=== PATIENT | male | born 1965 | race Caucasian/White ===

== ENCOUNTER 2024-04-27 13:19 | Inpatient (IN) | payer OTHER, SELFPAY ==
[2024-04-27] VITALS (30 sets, daily range): BP systolic 89–108; BP diastolic 49–82; BMI 15.5; BMI 15.3
--- NOTE | 2024-04-27 11:04 | ED.GENMED ---
History of Present Illness
General
Chief Complaint: Heart Rate Problem
Source: ambulance crew
Exam Limitations: clinical condition, altered mental status and dementia
Time Seen by Provider: 04/27/24 10:55
History of Present Illness
History of Present Illness:
See MDM
Past History
Past History
ED Past Medical History: HTN and Psychiatric
ED Past Surgical History: None
Social History
Tobacco: Non-smoker
Alcohol: None
Phy Exam
Physical Exam
Physical Exam:
See MDM
Sepsis
Sepsis Screening
Sepsis Assessment: Severe Sepsis
Sepsis Screening: Lactate >/=4mmol/L and Worsening O2 Saturation
Sepsis Screen
Sepsis Screen: Severe Sepsis
Date: 04/27/24
Time: 12:00
Course
Orders/Labs/Results
Orders:
Orders
04/27/24 10:55
Electrocardiogram (*1) Urgent
Reason for Study: Shortness of Breath
EKG- Treatment ONCE
0.9% Sodium Chloride 1000 ml [Nss] 1,000 ml IV BOLUS
CR Chest Portable - 1 View Urgent
Comment:
Reason For Exam: SOB, altered
Reason Study Needs to be Portable: Unable to Transport
04/27/24 11:03
Electrocardiogram (*1) Urgent
Reason for Study: Bradycardia / Tachycardia
EKG- Treatment ONCE
04/27/24 11:09
Acetaminophen [Tylenol/Feverall] 650 mg RECTAL NOW STA
04/27/24 11:21
Piperacillin/Tazo 3.375 Gram [Zosyn] 3.375 gram in 50 ml IV NOW
Vancomycin [Vancocin] 1,250 mg 0.9% Sodium Chloride 250 ml [Nss] 250 ml IV NOW
04/27/24 11:28
Comprehensive Metabolic Panel Urgent
NT-proBNP Urgent
PTT Urgent
Prothrombin Time Urgent
Troponin I Urgent
Urinalysis Reflex To Culture Urgent
Date Specimen was Collected: 04/27/24
Time Specimen was Collected: 11:25
Blood Culture Q30M
SERENE Source: Blood/Venous
Specimen Description:
04/27/24 11:29
COVID-19 Antigen Urgent
Source: Nasal Swab
Complete Blood Count/With Diff Urgent
Lactic Acid Q4H
Comment: CANCEL 2nd LACTIC ACID IF 1st LACTIC ACID IS LESS THAN 2
Influenza A+B Rapid Molecular Urgent
SERENE Source: Nasal Swab
Specimen Description:
04/27/24 11:30
Blood Culture Q30M
SERENE Source: Blood/Venous
Specimen Description:
04/27/24 11:46
Diltiazem 125 mg/125 ml Nss [Cardizem] 125 mg in 125 ml IV NOW
Initial dose in mg/hr, then titrate:: 5
Titrate to keep:: Heart rate 80-100 bpm
Titrate by mg/hr:: 5 mg/hr
Frequency of titrations (minutes):: 15
Maximum dose in mg/hr:: 15
Diltiazem HCl [Cardizem] 15 mg IV NOW STA
04/27/24 15:00
Lactic Acid Q4H
Comment: CANCEL 2nd LACTIC ACID IF 1st LACTIC ACID IS LESS THAN 2
Abnormal Lab Results
04/27/24 04/27/24
11:28 11:29
WBC 11.7 H 10^3/uL
(4.8-10.8)
Urine Ketones Trace A
(Negative)
Urine Bilirubin 1+ A
(Negative)
04/27/24 11:29
Vital Signs
Initial and Last Documented VS:
Initial Vital Signs
Pulse Resp BP Pulse Ox
200 40 100/61 95
04/27/24 10:56 04/27/24 10:56 04/27/24 10:56 04/27/24 10:56
Last Documented Vital Signs
Pulse Resp BP Pulse Ox
200 40 100/61 95
04/27/24 10:56 04/27/24 10:56 04/27/24 10:56 04/27/24 10:56
Procedures
Cardioversion
Indication:: Afib
Performed by:: Kenny Cosme,
Synchronized?: Yes
Energy Used: 150 joules
Number of attempts: 1
Successful?: Yes
ASA Risk Score: Class III
Any reaction or bad outcome to prior sedation/anesthesia?: History unavailable
Sedation level to be attained: minimal
Chart and allergies reviewed: Yes
Patient reassessed prior to sedation: Yes
Time out completed at (validating right patient & procedure): 11:00
History of difficult intubation: No
Airway free of obstruction: Yes
Patient has a gag reflex: Yes
Patient is able to open mouth: No
Patient has no dentures: Yes
Patient has no loose teeth: Yes
Medication administered by Provider during Moderate Sedation: Other (N/A)
Start Time: 11:00
Stop Time: 11:10
MDM/Problems Addressed
Differential Diagnosis Includes:
HPI and MDM Narrative:
59-year-old male presenting by EMS for altered mental status and tachycardia. Patient resides in a nursing facility for dementia. Patient currently nonverbal. EMS stating that his baseline is apparently combative and yelling. EMS stating that
the facility was unsure how long he was in this state. On arrival, patient significantly in the 200s. Patient is altered and confused and not responding to verbal stimuli. Due to the critical nature, patient set up for emergent cardioversion.
Patient shocked at 150 J and immediately was able to open his eyes. Patient now in a sinus tachycardia. Patient feels warm. Will workup for possible sepsis
Physical exam
General: Frail, cachectic, altered
HEENT: protecting airway
Neck: appears supple
CV: Tachycardic and irregular
Resp: No accessory muscle use. Rhonchorous breath sounds throughout
Abd: Non-distended
Extremities: No deformities
Neuro: Eyes closed, not responding to verbal stimuli
Psych: Flat affect
Skin: Warm
Problems Addressed including Acute and Chronic Conditions affecting care:
1. A-fib with RVR
Acuity: acute
Prognosis: unstable
Details: Patient requiring emergent cardioversion due to his critical nature. Patient tolerated procedure well. Patient will require admission and will relay to the hospital team that he will likely need at least 1 month of Eliquis status post
shock
2. Altered mental status
Acuity: acute
Prognosis: unstable
Details: Potentially hypoperfusion from A-fib or potentially sepsis. Will obtain chest x-ray, viral testing and urine
3. Hypoxia
Acuity: acute
Prognosis: unstable
Details: Likely in setting of pneumonia. Patient currently on nonrebreather
Updates
11:15 AM patient found to be febrile rectally. Patient given Tylenol. Will empirically treat with vancomycin and Zosyn with concern for pneumonia given his shortness of breath and fever and hypoxia
11:50 AM patient intermittently going back into rapid A-fib. Will start on Cardizem drip
12 PM family now at bedside and updated
Differential Diagnosis (but not limited to): A-fib, hypoxic brain injury, sepsis
Testing considered: CT head
Drug therapy (if applicable): OTC meds, please see d/c instruction regarding Rx drugs
Amount and/or Complexity of Data Reviewed
Clinical info obtained from: EMS
External data reviewed: N/A
Labs I independently reviewed (but not limited to): Elevated lactic acid
Radiology: X-ray independently reviewed: Chest x-ray concerning for left lower lobe pneumonia
Pulse Ox: hypoxic
EKG independently reviewed: A-fib with RVR, left axis, no STEMI, rate related ischemic changes
Acetylene Gas Compressor: A-fib with RVR
Critical Care: The high probability of a clinically significant, sudden or life threatening deterioration of the cardiopulmonary system(s) required my full and direct attention, intervention and personal management. The aggregate critical care time
was 35 minutes. This time is in addition to time spent performing reported procedures but includes the following:
[x] Data Review and interpretation
[x] Patient assessment and monitoring of vital signs
[x] Documentation
[x] Medication orders and management
Risk of Complication:
Social Determinants of health: Good social support
Discussed with other providers: Hospitalist
Escalation of Care includes Admit/Obs: Given sepsis and hypoxia and altered mental status, will admit
Occasional wrong word or 'sound a like' substitutions may have occurred due to the inherent limitations of voice recognition software. Read the chart carefully and recognize, using context, where substitutions have occurred.
*Critical Care Note
Total Time (30-74mins, 75-104mins- exclusive of procedures): 35 min
ED Attending Note
-
Portions of this chart may have been created with voice recognition software.� Occasional wrong word or��sound alike� substitutions may have occurred due to the inherent limitations of voice recognition software.
Discharge Plan
Departure
Patient Disposition: Admit
Date of Disposition: 04/27/24
Time of Disposition: 12:00
Admit to: IMU
Presentation/result/management discussed w/ accepting MD/DO: Hospitalist
Discharge Problem:
Sepsis, A-fib, PNA (pneumonia), Acute dehydration
Referrals:
Ezio Wright DO [Family Provider] -
Interventions
Interventions:
*Risk Screen - Suicide Last Done: 04/27/24 10:56
*General Assessment Last Done: 04/27/24 10:56
*Neglect/Abuse Screening Last Done: 04/27/24 10:56
Discharge Date and Time
Print Language: UZBEK
[2024-04-27 11:36] LABS: Hematocrit 45.1 % (39.0-52.0); Hemoglobin 15.1 g/dL (13.0-18.0); Mean Corp Hgb Conc. 33.5 g/dL (33.0-37.0); Mean Corpuscular Hgb 29.3 pg (27.0-31.0); Mean Corpuscular Volume 87.4 fL (80.0-94.0); Mean Platelet Volume 9.8 fL (7.4-10.4); Platelet Count 236 10^3/uL (130-400); Red Blood Cell Count 5.16 10^6/uL (4.70-6.10); Red Cell Dist. Width 12.9 % (11.5-14.5); White Blood Cell Count 11.7 10^3/uL (4.8-10.8)
[2024-04-27 11:39] LABS: Urine Albumin Trace (Neg - Trace); Urine Bilirubin 1+ (Negative); Urine Character Clear (Clear); Urine Color Yellow; Urine Glucose Negative (Negative); Urine Ketone Trace (Negative); Urine Leukocyte Negative (Negative); Urine Nitrite Negative (Negative); Urine Occult Blood Negative (Negative); Urine Specific Gravity 1.025 (<1.030); Urine Urobilinogen Negative (Neg - 1+)
[2024-04-27 11:46] LABS: INR 1.12; PT 14.8 Sec (11.4-14.6)
[2024-04-27 11:47] LABS: APTT 29.5 Sec (23.4-35.0)
[2024-04-27 11:52] LABS: ALT (SGPT) 58 U/L (0-50); AST (SGOT) 56 U/L (17-59); Albumin 3.5 g/dl (3.5-5.0); Alkaline Phosphatase 84 U/L (38-126); Blood Urea Nitrogen 113 mg/dl (9-20); Calcium 9.4 mg/dl (8.4-10.2); Carbon Dioxide 14 mmol/L (22-30); Chloride 118 mmol/L (98-107); Glucose 136 mg/dl (70-99); Potassium 5.4 mmol/L (3.5-5.1); Sodium 158 mmol/L (135-145); Total Bilirubin 0.8 mg/dl (0.2-1.3); Total Protein 6.2 g/dl (6.3-8.2); eGFR 21.34
[2024-04-27 11:52] LABS: Lactic Acid 6.4 mmol/L (0.7-2.0)
[2024-04-27 11:55] LABS: Absolute Neutrophils -Man Diff 8.7 10^3/uL (1.4-6.5); Band Neutrophils 21 % (0-3); Lymphocytes 15 % (20-51); Metamyelocytes 2 % (-); Monocytes 8 % (2-9); Platelets Checked Yes; Segmented Neutrophils 54 % (42-75)
[2024-04-27] MEDS: NSS 1000 IV ×2 (11:55→12:13)
[2024-04-27 11:56] LABS: COVID-19 Antigen Negative (Negative)
[2024-04-27] MEDS: TYLENOL/FEVERALL 650 MG RECTAL (11:56)
[2024-04-27] MEDS: ZOSYN 50 IV ×2 (11:56→17:44)
[2024-04-27 11:57] LABS: Normal RBC Morphology Yes; Total Cells Counted 100
[2024-04-27] MEDS: CARDIZEM 15 MG IV (11:57)
[2024-04-27 12:05] LABS: NT-proBNP 4330 pg/ml; Troponin I 0.926 ng/ml
[2024-04-27] MEDS: CARDIZEM 125 IV (12:14)
--- NOTE | 2024-04-27 12:35 | HPS.HSE ---
Addendum entered and electronically signed by Harvinder De La Rosa MD 04/27/24 13:54:
ABG:
04/27/24
13:20
pH 7.25 L
pCO2 31 L
pO2 92
ABG : Primary MA with secondary respiratory acidosis, additional MA
HCT:
- Moderate age-related parenchymal atrophy. No intra- or extra-axial mass, hemorrhage, or fluid collection.
- Mild to moderate subcortical, deep, and periventricular white matter low-attenuation, compatible with changes of chronic small vessel ischemic disease.
- The imaged paranasal sinuses and mastoid air cells are clear.
- No acute intracranial abnormality.
Addendum entered and electronically signed by Harvinder De La Rosa MD 04/27/24 13:18:
Addendum HX from [place] ( ) at Bed side but [place] is poor Historian
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
Hospitalized to [facility] from November to April 18 seems like
- acute behavioral dysfunction
- agitated Delirium to hyperactive TME
- PNA
- HX not suggestive of VDRF
- Before TF to [facility] , he was able to walk, able to feed himself etc
Original Note:
Family Physician
-
Family Physician: Ezio Wright, DO
Chief Complaint
-
AMS, Hypoxic
History of Present Illness
I could not get any information from the patient is obtunded
Information gathered by chart review and speaking with the ER staff and [place]
HPI from ER Attd:
59M [facility] Res reports combative at baseline, No prior visit to , HX IDDM, HLD, BPH was found unresponsive at [place]. Upon arrival , ER noted AF in RVR @ 200. Not on thinner.
S/p CV but SAF recur
Hypoxic RF on NRM
Soft BP
Obtunded
Addendum HX from [place] ( ) at Bed side but [place] is poor Historian
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
Hospitalized to [facility] from November to April 18 seems like
- acute behavioral dysfunction
- agitated Delirium to hyperactive TME
- PNA
- HX not suggestive of VDRF
- Before TF to [place] , he was able to walk, able to feed himself etc
Then DC' d from [facility] to [place] suspect SNF on 04/18/24
- HX as above
Medical History
Past Medical History
Past Medical History: Reports HTN, Hypercholesterolemia, IDDM and Seizures (?)
Past Surgical History: Reports Other (unknown )
Social History
Unable to obtain full social history at this time due to: Acuity (obdunted in severe TME )
Family History
Family History: Unable to Obtain
Allergies / Home Medications
Allergies reflects when Allergies were last updated in [employer].
Home Medications with original date entered in [employer]
Allergy/Medication List:
Vital Signs
Temp Pulse Resp BP Pulse Ox
101.5 F H 106 27 106/82 96
04/27/24 11:30 04/27/24 12:15 04/27/24 12:15 04/27/24 12:00 04/27/24 12:15
Review of Systems
-
Unable to obtain full review of systems at this time due to: Acuity
A 12 point ROS was completed and negative except as noted: No
Physical Exam
Vital Signs
Vital Signs
Temp Pulse Resp BP Pulse Ox
101.5 F H 106 27 106/82 96
04/27/24 11:30 04/27/24 12:15 04/27/24 12:15 04/27/24 12:00 04/27/24 12:15
Physical Exam
HEENT: NormoCephalic, Moist mucous membranes and Atraumatic
Respiratory: Clear
Cardiac: S1/S2 and Regular Rhythm; No Murmur or Rub
GI: Soft, Non Tender, Non Distended and Normal Bowel Sounds; No Organomegaly
Rectal: Deferred by Provider
Musculoskeletal: No Clubbing, No Cyanosis and No Edema
Skin: No Rash
Neuro: Nonfocal/grossly intact
Laboratory Results
-
04/27/24 11:29
04/27/24 11:28
Laboratory Results
PT 14.8 Sec (11.4-14.6) H 04/27/24 11:
INR 1.12 04/27/24 11:
APTT 29.5 Sec (23.4-35.0) 04/27/24 11:28
Lactic Acid 6.4 mmol/L (0.7-2.0) H* 04/27/24 11:
Total Bilirubin 0.8 mg/dl (0.2-1.3) 04/27/24 11:
AST 56 U/L (17-59) 04/27/24 11:
ALT 58 U/L (0-50) H 04/27/24 11:28
Alkaline Phosphatase 84 U/L (38-126) 04/27/24 11:28
Troponin I 0.926 ng/ml H* 04/27/24 11:28
Data Reviewed
-
CT Scan: Other (pending HCT )
Lab Data: Labs Reviewed by me
Impression/Plan
-
Reviewed VS: HR 200s, BP 100/60 --> 117/65 RR 40 POx 95 on NRM
Data
Laboratory Tests
04/27/24 04/27/24
11:28 11:29
WBC 11.7 H
Abs Neuts (Manual) 8.7 H
Band Neutrophils 21 H
Sodium 158 H
Potassium 5.4 H
Chloride 118 H
Carbon Dioxide 14 L*
BUN 113 H*
Creatinine 3.2 H
eGFR 21.34
Glucose 136 H
Lactic Acid 6.4 H*
Troponin I 0.926 H*
Uqh-D-Ftjxjwdotzb Pept 4330
NEG UA
NEG Covid
NEG Flu A & B
BCx pending
CXR
Left hemidiaphragm somewhat obscured suggesting opacification such as subsegmental atelectasis and/or pneumonia and possible small left pleural effusion
04/27/24 & 1103: EKG
SINUS TACHYCARDIA WITH PREMATURE ATRIAL COMPLEXES
LEFT AXIS DEVIATION
SEPTAL INFARCT (CITED ON OR BEFORE 27-APR-2024)
ABNORMAL ECG
WHEN COMPARED WITH ECG OF 27-APR-2024 11:00,
SINUS RHYTHM HAS REPLACED ATRIAL FIBRILLATION
VENT. RATE HAS DECREASED BY 76 BPM
SERIAL CHANGES OF EVOLVING SEPTAL INFARCT PRESENT
04/27/24 & 1055 EKG
ATRIAL FIBRILLATION WITH RAPID VENTRICULAR RESPONSE
LEFT AXIS DEVIATION
SEPTAL INFARCT , AGE UNDETERMINED
MARKED ST ABNORMALITY, POSSIBLE LATERAL SUBENDOCARDIAL INJURY
ABNORMAL ECG
NO PREVIOUS ECGS AVAILABLE
No prior hospitalist admission:
ASSESSMENT & PLAN
Odunted TME suspect multifactorial see as below
HX Sz ?
- Aspiration precaution thus NPO and IVF
- NPO till able to protect AW
- Supportive IVF
- check Valproate level
- HCT to complete w/u
Acute hypoxic RF
Suspect aspiration PNA @ LLL PNA
- NPO till able to protect AW
- ABG
- Agree with BS ABx: IV Vancomycin and Zosyn
- f/u BCx
- ICU consult
Severe sepsis due to PNA
Leucocytosis with significant bandemia
Severe LA
- IVF : switch to LR @120/H
- Trend LA, WCC and bands
- Treat PNA with above ABx
- ID consult
Severe Hypernatremia
Est FWD approx 3.5 L
- FWD correction so far with LR IVF due to incipient septic shock is priority of Tx
Associated severe hi AG MA due to sepsis, lactate acidoiss
Associated mild hyperkalemia
SANDY due to sepsis plus decrease PO
- LR IVF
- Trend Acid base , electrolytes
- Trend RFTs
- Trend Wt and UO
- Nephro consult
Significantly elevated TPNI : Presumed NSTEMI vs NIMI
S/P Fast AF s/p CV but recur
- Not on thinner
- Rate control with Dilt gtt
- IVF
Trend TPNI
- CBC card consult
Elevated pro BNP - related to fast AF vs chr distolic dysfunction
- ECHO and Card evaluation
IDDM
- hold Home insulin regime
- add ISS low
HX or Mood disorder
- check Depakene levei
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
HX BPH
- hold Flomax while NPO too protect AW
Cathexic NH res
HX suggestive of behavioral issues at baseline
- increase info about baseline ADL and IADL
Obtain records form [facility] admission from November to 2023
DVT Px: SQH
Full code
ICU
Total Critical Care Time__70__ minutes.
I was immediately available to the patient and staff. I personally examined, reviewed labs, diagnostic images/reports, interpretations, treatment plans, discussed patient care with other providers and family or caregivers (if patient is unable to
make decisions), entered orders as appropriate and documented the medical record.
[2024-04-27] MEDS: VANCOCIN 275 MG IV (13:21)
[2024-04-27 13:28] LABS: B.E. -12.4 mmol/L; O2 Saturation % 97.5 % (94-98); PCO2 31 mmHg (35-48); PO2 92 mmHg (83-108); pH 7.25 (7.35-7.45)
[2024-04-27 13:31] LABS: HCO3 13.6 mmol/L (21-28); O2 Therapy NRB
[2024-04-27] MEDS: LR 1000 IV (14:16)
--- NOTE | 2024-04-27 14:37 | W.CON.NEPH ---
Consultation
-
Date/Time Consultation Requested: 04/27/2024 2:00 PM
Date/Time Consultation Performed: 04/27/2024 2:00 PM
Requesting Provider: Dr. Cuadra
Performing Provider: Dr. Grant
Reason for Consultation: Acute kidney injury/ Metabolic Acidosis
Medical History
-
Chief Complaint: SANDY/Metabolic Acidosis
History of Present Illness:
59 year old male with history of frontal temporal dementia over the past 7 years. He was hospitalized in [facility] for dementia exacerbation for four months and then recently transferred to [facility] on 04/18 after admission at .
[facility] for PNA. The patient has a history of diabetes maintained on insulin therapy with microvascular complications including diabetic retinopathy and neuropathy. He is maintained on statin therapy in the setting of his dyslipidemia finasteride
setting of his BPH. He is maintained on valproic acid for possibly seizure or even for his frontal temporal dementia. He presented from the senior care at [facility] today after being found down beside his bed for an unknown period of time. On
presentation to the hospital he was hypotensive febrile and in rapid atrial fibrillation which required cardioversion. He is noted to have septic physiology and was also noted to have acute kidney injury with a creatinine of 3.2 with associated
lactic metabolic acidosis hypernatremia and hyperkalemia. We were then asked to see this critically ill patient for the aforementioned complications.
Past Medical History
DM
BPH
HL
Frontotemporal dementia
Social History
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
No tobacco alcohol abuse
Resides at senior care since end of March 2024
Family History
No kidney disease but notable for frontal temporal dementia with father and grandfather
Family History: Not Pertinent
Allergies / Home Medications
Allergy/AdvReac Type Severity Reaction Status Date / Time
No Known Allergies Allergy Unverified 04/27/24 10:56
�Medication �Instructions �Recorded �Confirmed �Type
acetaminophen 325 mg tablet 650 mg PO Q6HPRN PRN mild pain 04/27/24 04/27/24 History
(Tylenol)
amoxicillin 500 mg capsule 1,000 mg PO TID 04/27/24 04/27/24 History
aspirin 81 mg tablet,delayed 81 mg PO DAILY 04/27/24 04/27/24 History
release
atorvastatin 10 mg tablet (Lipitor) 10 mg PO HS 04/27/24 04/27/24 History
bisacodyl 10 mg rectal suppository 10 mg IL DAILYPRN PRN if no bm 04/27/24 04/27/24 History
(Dulcolax (bisacodyl)) aftr mom
cholecalciferol (vitamin D3) 25 25 mcg PO DAILY 04/27/24 04/27/24 History
mcg (1,000 unit) tablet (Vitamin
D3)
docusate sodium 100 mg capsule 100 mg PO BID 04/27/24 04/27/24 History
(Colace)
finasteride 5 mg tablet 5 mg PO DAILY 04/27/24 04/27/24 History
guaifenesin 600 mg tablet, 600 mg PO DAILY 04/27/24 04/27/24 History
extended release 12 hr
ibuprofen 200 mg tablet (Advil) 400 mg PO Q6HPRN PRN fever 04/27/24 04/27/24 History
insulin glargine 100 unit/mL (3 3 unit SC HS 04/27/24 04/27/24 History
mL) subcutaneous pen (Lantus
Solostar U-100 Insulin)
insulin lispro 100 unit/mL 0 sliding scale dose SC AC 04/27/24 04/27/24 History
subcutaneous pen
lorazepam 0.5 mg tablet 0.5 mg PO HS 04/27/24 04/27/24 History
loxapine succinate 25 mg capsule 25 mg PO DAILY 04/27/24 04/27/24 History
loxapine succinate 50 mg capsule 50 mg PO HS 04/27/24 04/27/24 History
magnesium hydroxide 400 mg/5 mL 2,400 mg PO E67MGVH PRN if no bm 04/27/24 04/27/24 History
oral suspension (Milk of Magnesia) on 3rd day
polyethylene glycol 3350 17 gram 17 g PO DAILY 04/27/24 04/27/24 History
oral powder packet (Miralax)
sodium phosphates 19 gram-7 118 ml IL DAILYPRN PRN if no bm 04/27/24 04/27/24 History
gram/118 mL enema (Fleet Enema) aftr dulcolax
tamsulosin 0.4 mg capsule (Flomax) 0.8 mg PO HS 04/27/24 04/27/24 History
valproic acid (as sodium salt) 250 500 mg PO BID 04/27/24 04/27/24 History
mg/5 mL oral solution
Review of Systems
-
Unable to obtain full review of systems at this time due to: Dementia, Acuity and Patient Non Verbal
History Source: Family
All other systems: Negative unless noted
Constitutional: Fatigue
Neurological: Other (Neuropathy, baseline combative dementia)
Physical Exam
Vital Signs
Vital Signs
Temp Pulse Resp BP Pulse Ox
100.2 F 102 25 90/53 98
04/27/24 14:20 04/27/24 14:15 04/27/24 14:15 04/27/24 14:00 04/27/24 14:15
Lab Results
04/27/24 11:29
04/27/24 11:28
WBC 11.7 10^3/uL (4.8-10.8) H 04/27/24 11:29
RBC 5.16 10^6/uL (4.70-6.10) 04/27/24 11:29
Hgb 15.1 g/dL (13.0-18.0) 04/27/24 11:29
Hct 45.1 % (39.0-52.0) 04/27/24 11:29
Plt Count 236 10^3/uL (130-400) 04/27/24 11:29
Sodium 158 mmol/L (135-145) H 04/27/24 11:
Potassium 5.4 mmol/L (3.5-5.1) H 04/27/24 11:
Chloride 118 mmol/L (98-107) H 04/27/24 11:
Carbon Dioxide 14 mmol/L (22-30) L* 04/27/24 11:
BUN 113 mg/dl (9-20) H* 04/27/24 11:
Creatinine 3.2 mg/dL (0.7-1.3) H 04/27/24 11:
eGFR 21.34 04/27/24 11:
Glucose 136 mg/dl (70-99) H 04/27/24 11:
Calcium 9.4 mg/dl (8.4-10.2) 04/27/24 11:
Iqy-A-Qgrvvultinb Pept 4330 pg/ml 04/27/24 11:
Albumin 3.5 g/dl (3.5-5.0) 04/27/24 11:
Physical Exam
General: Withdrawn lethargic obtunded, arousable to physical stimuli but non verbal, appears acutely ill
neck: noJVD Thyromegaly, no Bruits
Respiratory: Clear to auscultation bilaterally with normal lung excursion
Cardiac: S1/S2 irregular irregular
Breast: Deferred by me
Abdomen: Soft, Nontender, Nondistended, Normal Bowel Sounds and No Hepatosplenomegaly
Rectal: Deferred by Provider
Genito-urinary: No Costovertebral Tenderness
Extremities: No Clubbing, No Cyanosis and No Edema
Skin: No Rash or open lesions
Neuro: Obtunded
Hematologic/Lymphatic: No Cervical Lymphadenopathy, No Submandibular Lymphadenopathy and No Supraclavicular Lymphadenopathy
Psych: Obtunded
Vascular: plus 2 pedal and radial pulses
Data Reviewed
-
Radiology: Report Reviewed by me (Chest x-ray without congestive heart failure obvious infiltrate)
CT Scan: Report Reviewed by me (CT scan of head without acute findings)
Medical Tests (Nuc Med, Echo etc): Image Personally Visualized and interpreted (EKG personally reviewed notable for sinus tachycardia with PACs) and Report Reviewed by me
Labs: Labs Reviewed by me (BMP CBC urinalysis reviewed)
Critical Care Time (in minutes): 45 minutes
Assessment/Plan
-
Impression:
Sepsis: suspected LLL PNA
Atrial fibrillation status post cardioversion with hemodynamic instability (likely secondary to sepsis)
Change of mental status obtunded/found down in senior care
Acute kidney injury with creatinine of 3.2
Lactic metabolic acidosis
Hyperkalemia
Hypernatremia
Diabetes
BPH
Frontal temporal dementia
Positive troponin
Plan:
SANDY:
-Likely a function of hypotension in the setting of sepsis and atrial fibrillation
-Need to maintain MAP of 65 or greater with IV fluids and/or pressors if required
-Urinalysis notes only trace albumin and trace ketones, no evidence of leukocytes or blood (doubt rhabdo) or urosepsis
-Check random bladder scans while in ICU to assess for obstructive component given history of BPH
-Obtain fractional secretion of sodium (urine sodium and urine creatinine)
Hypernatremia:
-Calculated free water deficit ~3.5liters
-Will reduce free water deficit with hypotonic fluids once hemodynamic stability obtained
Gapped (26) and non gapped metabolic acidosis
-Likely due to lactic acidosis in the setting of sepsis and hypotension
-Would place patient on alkaline IV fluids sodium bicarbonate with 150 randy equivalents per liter at 150cc/hr
-Repeat electrolytes later this evening
-Hyperkalemia will improve with correction of metabolic acidosis
-ABG reveals some component of respiratory compensation PCO2 31 but still too high (therefore some component of respiratory acidosis)
AFIB:
-New onset status post cardioversion
-Currently on Cardizem for rate control
Sepsis:
-Broad-spectrum antibiotics with vancomycin and Zosyn
-Will need to be monitored by pharmacy for appropriate reduction of GFR which is currently less than 20 cc per minute
-Blood cultures pending
[2024-04-27 15:21] LABS: Lactic Acid 8.3 mmol/L (0.7-2.0)
[2024-04-27 15:29] LABS: Depakane < 10.0 ug/ml (50.0-120.0)
--- NOTE | 2024-04-27 15:40 | PHA.VAN.IN ---
Assessment
- Assessment
Renal Function: Unknown baseline
Concomitant Antimicrobials: piperacillin/tazobactam
Plan
- Plan
Initial / Loading Dose: 1250mg (~26 mg/kg) - 04/27 13:21
Maintenance Regimen: dosing by level
Monitoring: random 04/28 0600
MRSA Screen: Ordered per protocol
Pharmacokinetics Vancomycin I
- -
Patient Age: 59
Patient Sex: Male
Vancomycin Day #: 1
Indication: Pulmonary/Respiratory
Requesting Provider: Dr. De La Rosa
Pertinent Antimicrobial Allergies:
NKDA
Height / Weight:
Height 5 ft 9 in
Actual Weight 47.5 kg
IBW in k.7
Pertinent Past Medical History: BMI ~15.5, DM
- Vital Signs / Lab Results
Temp Pulse Resp BP Pulse Ox
100.2 F 102 25 90/53 98
04/27/24 14:20 04/27/24 14:15 04/27/24 14:15 04/27/24 14:00 04/27/24 14:15
Lab Results - Hematology
04/27/24
11:29
WBC 11.7 H
Band Neutrophils 21 H
Lab Results - Chemistry
04/27/24
11:28
BUN 113 H*
Creatinine 3.2 H
Albumin 3.5
04/27/24 04/27/24
11:29 14:48
Lactic Acid 6.4 H* 8.3 H*
Lab Results - Urine
04/27/24
11:28
Urine Nitrite (Reflex) Negative
Leukocyte Esterase Rfl Negative
Microbiology Results
04/27/24 11:29 Influenza Types A & B (CAREY) - Final
Nasal Swab Negative for Influenza A & B, NAAT
Negative results must be combined with clinical observations
and patient history.
Nucleic Acid Amplification test (NAAT)performed on the
[employer] platform.
[2024-04-27 15:59] LABS: Glucose - Point of Care 148 mg/dl (70-99)
--- NOTE | 2024-04-27 16:25 | CON.INTV ---
Consultation
Consultation Request
Date/Time Consultation Requested: 04/27/2024
Date/Time Consultation Performed: 04/27/2024
Requesting Provider: Dr. De La Rosa
Performing Provider: Dr. Zana Escobar
Reason for Consultation: Hypoxemic respiratory failure
Medical History
-
History of Present Illness:
59-year-old man with history of frontotemporal dementia diagnosed 7 years ago with aggressive behavior, detention resident, found unresponsive at the detention. He was found at the detention with atrial fibrillation with rapid ventricular
response-not previously mentioned to have history of this.
Not on blood thinners
Patient required supplemental oxygen up to nonrebreather mask.
Blood pressure was borderline and patient was obtunded.
Patient was transferred to the critical care unit for care. Hypoxemia suspected to be from aspiration pneumonia/pneumonitis.
Patient found to have leukocytosis with bandemia. Started on antibiotics. Fluid resuscitation was given as well.
He was found to be hypernatremic-likely volume depleted.
Found to have severe metabolic acidosis with increased troponins.
I spent a great deal of time at the bedside with the power of corporate associate attorney. Explaining current clinical situation. Poor prognosis. She states that patient has been deteriorating, 70 pound weight loss, significant muscle mass loss, decreased oral
intake, aggressive behavior. She would not want escalation of care or intubation, CPR or pressors.
-
Past Medical History
Past Medical History: Other (See assessment and plan)
Family History
Family History: Unable to Obtain
Allergies / Home Medications
Allergies
Allergy/AdvReac Type Severity Reaction Status Date / Time
No Known Allergies Allergy Unverified 04/27/24 10:56
Home Medications
�Medication �Instructions �Recorded �Confirmed �Last Taken �Type
acetaminophen 325 mg tablet 650 mg PO Q6HPRN PRN mild pain 04/27/24 04/27/24 Unknown History
(Tylenol)
amoxicillin 500 mg capsule 1,000 mg PO TID 04/27/24 04/27/24 Unknown History
aspirin 81 mg tablet,delayed 81 mg PO DAILY 04/27/24 04/27/24 Unknown History
release
atorvastatin 10 mg tablet (Lipitor) 10 mg PO HS 04/27/24 04/27/24 Unknown History
bisacodyl 10 mg rectal suppository 10 mg WY DAILYPRN PRN if no bm 04/27/24 04/27/24 Unknown History
(Dulcolax (bisacodyl)) aftr mom
cholecalciferol (vitamin D3) 25 25 mcg PO DAILY 04/27/24 04/27/24 Unknown History
mcg (1,000 unit) tablet (Vitamin
D3)
docusate sodium 100 mg capsule 100 mg PO BID 04/27/24 04/27/24 Unknown History
(Colace)
finasteride 5 mg tablet 5 mg PO DAILY 04/27/24 04/27/24 Unknown History
guaifenesin 600 mg tablet, 600 mg PO DAILY 04/27/24 04/27/24 Unknown History
extended release 12 hr
ibuprofen 200 mg tablet (Advil) 400 mg PO Q6HPRN PRN fever 04/27/24 04/27/24 Unknown History
insulin glargine 100 unit/mL (3 3 unit SC HS 04/27/24 04/27/24 Unknown History
mL) subcutaneous pen (Lantus
Solostar U-100 Insulin)
insulin lispro 100 unit/mL 0 sliding scale dose SC AC 04/27/24 04/27/24 Unknown History
subcutaneous pen
lorazepam 0.5 mg tablet 0.5 mg PO HS 04/27/24 04/27/24 Unknown History
loxapine succinate 25 mg capsule 25 mg PO DAILY 04/27/24 04/27/24 Unknown History
loxapine succinate 50 mg capsule 50 mg PO HS 04/27/24 04/27/24 Unknown History
magnesium hydroxide 400 mg/5 mL 2,400 mg PO [id number] PRN if no bm 04/27/24 04/27/24 Unknown History
oral suspension (Milk of Magnesia) on 3rd day
polyethylene glycol 3350 17 gram 17 g PO DAILY 04/27/24 04/27/24 Unknown History
oral powder packet (Miralax)
sodium phosphates 19 gram-7 118 ml WY DAILYPRN PRN if no bm 04/27/24 04/27/24 Unknown History
gram/118 mL enema (Fleet Enema) aftr dulcolax
tamsulosin 0.4 mg capsule (Flomax) 0.8 mg PO HS 04/27/24 04/27/24 Unknown History
valproic acid (as sodium salt) 250 500 mg PO BID 04/27/24 04/27/24 Unknown History
mg/5 mL oral solution
Review of Systems
-
Unable to Obtain full review of systems at this time due to: Acuity
Vitals / Labs / Diagnostic Testing
Vital Signs
Temp Pulse Resp BP Pulse Ox
100.2 F 102 25 90/53 98
04/27/24 14:20 04/27/24 14:15 04/27/24 14:15 04/27/24 14:00 04/27/24 14:15
Lab Data
04/27/24 11:29
04/27/24 11:28
Laboratory Results
04/27/24 04/27/24
11: 13:20
PT 14.8 H
INR 1.12
APTT 29.5
pH 7.25 L
pCO2 31 L
pO2 92
HCO3 13.6 L*
O2 Delivery Level Nrb
Microbiology
04/27/24 11:29 Nasal Swab Influenza Types A & B (CAREY) - Final
Negative for Influenza A & B, NAAT
Negative results must be combined with clinical observations
and patient history.
Nucleic Acid Amplification test (NAAT)performed on the
[employer] platform.
Diagnostic Testing:
Physical Exam
-
HEENT: Normocephalic
Cardiovascular: S1/S2
Respiratory: Non-Labored Respirations
GI: Soft and Non Distended
Neurology: Other (Obtunded. Shallow respiratory effort)
Skin: Warm
General: Comfortable and Other (Cachectic)
Assessment
-
Acute hypoxemic respiratory failure likely due to aspiration pneumonia/pneumonitis
Toxic metabolic encephalopathy-possible history of seizures-patient was found down at the detention
Severe Sepsis: Possibly pneumonia--Cannot rule out aspiration
Heart failure-unknown type.
proBNP elevated
Rapid atrial fibrillation
Troponin increased-likely non-TX
Anion gap metabolic acidosis
Acute kidney injury
Hyponatremia
Hyperkalemia
Hypernatremia-volume depletion
Conditions present prior admission:
Frontotemporal dementia with aggressive behavior
Insulin-dependent diabetes
History of mood disorder on Depakote
BPH
Malnutrition-cachectic
Prolonged admission at [facility] March 2024-unclear details
Assessment and plan:
Critically ill, toxic metabolic encephalopathy-cannot rule out seizure spell.-
CT head negative, reviewed
-
Hypoxemic/hypercapnic acute respiratory failure: Chest x-ray showed left lower lobe possible infiltrate. Cannot rule out aspiration event.
ABG 7.-patient's mental status continues to be poor. He is obtunded.
Not a candidate for noninvasive mechanical ventilation
DNR status
Continue oxygen supplementation
Prognosis is poor
Will not repeat ABG as there is no escalation of care and he is not a candidate for aggressive intervention at this point
-
Agree with antibiotics to cover for possible aspiration pneumonia
Currently Zosyn/vancomycin
Check MRSA screening if negative hopefully can discontinue vancomycin
-
Follow leukocytosis and fever curve
-
Severe sepsis-blood pressures were soft
Maintain hemodynamics with IV fluid, pressors will be started if necessary. Irving-Synephrine first if still tachycardic.
Anion gap metabolic acidosis/respiratory acidosis: Lactic acidosis with poor compensation.
Elevated lactic acid
Status post fluid resuscitation
Will transition to bicarbonate drip
Follow acid-base status closely
Not a candidate for noninvasive mechanical ventilation
If there is increased work of breathing intubation and mechanical ventilation will be needed.
-
Follow potassium and sodium postresuscitation.
-
Atrial fibrillation status post cardioversion.
Currently on Cardizem drip-wean off as able.
Follow hemodynamics closely
Heparin drip has been started
-
Trend troponins
Eventual echo cardiogram
-
N.p.o. for now
Head of the bed elevation if possible
-
I personally discussed with the power of corporate associate attorney at the bedside, 04/27/2024. Patient has been losing weight clinically deteriorating over the last few years. Lost about 70 pounds. Now nonambulatory. She would not want intubation, CPR or
escalation of care. Continue with antibiotics and IV fluids. Okay with labs. Prognosis is poor and she understands.
-
Critical care statement: A total of 80 minutes of critical care time was provided for this patient today. This includes management of unstable vital signs, evaluation of the patient at bedside, reviewing the patient's pertinent medical records
including ventilator settings, arterial blood gases, radiographs, microbiology, laboratory evaluations and discussion with primary team, critical care nursing, and respiratory therapy.
--- NOTE | 2024-04-27 16:39 | W.PN.CD ---
Today's Communication / Plan
-
Consult dictated
Trend trop
Consider systemic anticoagulation for 1 month, Dr. De La Rosa notified
Elective echo
Impression / Plan
-
AFib with RVR, reported 200, sinus tach after cardioversion
- S/p emergent cardioversion in ER
- Agree with ER, 30 days of Eliquis or some full dose anticoagulation is appropriate
- Afib likely from acute medical illness
Abnormal troponin, likely nonischemic myocardial injury related to sepsis
- First trop 0.9
Suspected sepsis
- CXR supports LLL pneumonia
Altered mental status
Dementia, fronto-temporal
SANDY
hyperkalemia
Lactic acidosis
Hypernatremia
Physical Exam
Vital Signs/Labs
Vital Signs
Temp Pulse Resp BP Pulse Ox
100.2 F 102 25 90/53 98
04/27/24 14:20 04/27/24 14:15 04/27/24 14:15 04/27/24 14:00 04/27/24 14:15
04/26/24 04/27/24 04/28/24
06:59 06:59 06:59
Actual Weight 47.5 kg
04/27/24 11:29
04/27/24 11:28
PT 14.8 Sec (11.4-14.6) H 04/27/24 11:28
INR 1.12 04/27/24 11:28
APTT 29.5 Sec (23.4-35.0) 04/27/24 11:28
04/27/24
11:28
Yeh-Z-Mrwvcoixvyh Pept 4330
LAB Results
04/27/24
11:28
Troponin I 0.926 H*
Data Reviewed
-
Date of Service: April 27, 2024
--- NOTE | 2024-04-27 16:50 | W.PN.UPDATE ---
Update Note
Progress Note Update
Case hospitalist d/w Dr Tompkins ( CBC card ) suggest systemic AC with Eliquis. Patient is aspiration precaution with NPO due to obtunded TME. Alternative suggestion is is unfractionated Heparin gtt. Thus hospitalist ordered Heparin gtt per d/w
Admitting Coordinator.
[2024-04-27 17:04] LABS: Troponin I 0.859 ng/ml
[2024-04-27] MEDS: HEPARIN 2900 UNITS IV (17:11)
[2024-04-27] MEDS: HEPARIN 25000 UNITS/250 ML IV (17:13)
[2024-04-27] MEDS: SODIUM BICARBONATE 1150 MEQ IV ×2 (17:45→22:18)
--- NOTE | 2024-04-27 19:00 | PTCARENOTE ---
Admitted from ED at 15:30. Transfer via stretcher, on continues cardiac monitoring, Handoff with ED nurse done. SR 90's SBP 90's via left upper arm, Rectal temp 98.5. bladder scanned 295. Condom catheter placed. pt unresponsive pupils b/l equal and
reactive . Arrived on NRM, placed on 6L via nasal canula current POX 93%. at the bedside per 's wishes pt code status changed to DNR braslet applied to Rt FA
--- NOTE | 2024-04-27 19:13 | CON.ID ---
Consultation
-
Date/Time Consultation Requested: 04/27/24 15:16
Date/Time Consultation Performed: 04/27/24 19:13
Requesting Provider: Dr De La Rosa
Performing Provider: Dr Will
Reason for Consultation: aspiration pneumonia and shock
Chief Complaint / Past History
Chief Complaint
found unresponsive
History of Present Illness
Mr Linares is a 59 year old male with frontotemporal dementia (dx 7 years ago, c/b aggressive behavior) he presented here today via EMS after being found nonresponisve at the prison in [facility] with RVR. he was placed on supplemental O2 and
aspiration pneumonitis suspected. History is limited by the lack of a resident care assistant.
Since arrival here febrile to 101.5, hypotensive responding to volume resuscitation - no pressors thus far, wbc 11.7, hgb 15, plt 236, L shift noted, na 158, K 5.4, co2 14, cr 3.2 unknown baseline, lactic acid initially 6.4 now 8.0, t bili 0.8, ast
56, alt 58, alk phos 84, troponin 0.9, bnp 4000, ua no pyuria, covid ag, CXR: atelectasis vs pneumonia, ct w/o contrast: no acute abnormality, blood cultures x2 in progress, mrsa screen pending, currently on vancomycin and zosyn, ID is consulted for
assistance with management.
Past History
Additional Past Medical History:
HTN, Hypercholesterolemia, IDDM and Seizures (?)
Additional Past Surgical History:
unknown
Allergy History:
No Known Allergies Allergy (Unverified 04/27/24 10:56)
Medications Reviewed: Yes
Social History
Tobacco: Other (unknown social history)
Family History
Family History: Not Pertinent
Review of Systems
Review of Systems
unable to obtain due to condition of the patient
Vital Signs
Temp Pulse Resp BP Pulse Ox
98.4 F 102 25 90/53 98
04/27/24 16:53 04/27/24 14:15 04/27/24 14:15 04/27/24 14:00 04/27/24 14:15
Physical Exam
Physical Exam
Constitutional: Toxic, Cachetic and Other (obtunded)
Cardiovascular: Regular Rate and S1/S2; Negative Murmur or Rub
Pulmonary: Symmetric and Coarse; Negative Wheezes, Rales or Rhonchi
Gastrointestinal: Soft, Non Tender, Non Distended and Normal Bowel Sounds
Genito-Urinary: Negative Suprapubic Tenderness
Skin: Warm and Dry; Negative Rash or Jaundice
Neurological: Negative Awake
Lab / Diagnostic Study Results
Total Counted 100 04/27/24 11:29
Abs Neuts (Manual) 8.7 10^3/uL (1.4-6.5) H 04/27/24 11:29
Segmented Neutrophils 54 % (42-75) 04/27/24 11:29
Band Neutrophils 21 % (0-3) H 04/27/24 11:29
Lymphocytes (Manual) 15 % (20-51) L 04/27/24 11:29
PT 14.8 Sec (11.4-14.6) H 04/27/24 11:28
INR 1.12 04/27/24 11:28
Lactic Acid 8.0 mmol/L (0.7-2.0) H* 04/27/24 16:20
Microbiology Results
Micro:
04/27/24 16:10 Nasal Screen MRSA (PCR) - Pending
Nose
04/27/24 16:10 Blood Culture - Pending
Blood/Venous
04/27/24 16:20 Blood Culture - Pending
Blood/Venous
04/27/24 11:29 Influenza Types A & B (CAREY) - Final
Nasal Swab Negative for Influenza A & B, NAAT
Negative results must be combined with clinical observations
and patient history.
Nucleic Acid Amplification test (NAAT)performed on the
[employer] platform.
04/27/24 11:28 Blood Culture - Pending
Blood/Venous
04/27/24 11:28 Blood Culture - Pending
Blood/Venous
Assessment / Plan
Septic Shock
Suspected Aspiration Pneumonia
Altered Mental Status
Frontotemporal Demenita
- blood cultures x2 in progress
- sputum if able to obtain one
- mrsa nasalscreen
- covid and influneza negative
- agree with vancomycin and zosyn at this time
- if mrsa screen negative can stop vancomycin
- prognosis guarded
[2024-04-27 19:36] LABS: Hematocrit 40.8 % (39.0-52.0); Hemoglobin 13.6 g/dL (13.0-18.0); Mean Corp Hgb Conc. 33.3 g/dL (33.0-37.0); Mean Corpuscular Hgb 29.4 pg (27.0-31.0); Mean Corpuscular Volume 88.3 fL (80.0-94.0); Mean Platelet Volume 9.6 fL (7.4-10.4); Platelet Count 208 10^3/uL (130-400); Red Blood Cell Count 4.62 10^6/uL (4.70-6.10); White Blood Cell Count 7.9 10^3/uL (4.8-10.8)
[2024-04-27 19:51] LABS: Lactic Acid 6.3 mmol/L (0.7-2.0)
--- NOTE | 2024-04-27 20:14 | PTCARENOTE ---
Received pt resting in bed, minimally responsive, lethargic. Opened his eyes briefly while RN was obtaining blood work but did not track. Mumbled a few garbled words then closed his eyes again. Followed commands to squeeze hands but no other
commands followed. Resistance to movement in B/L UEs. Pupils 3mm, brisk/equal. L eye with small amount white drainage/crusting and L eye reddened. ELECTRONICS TECHNOLOGY DEPARTMENT CHAIR notified. Artif. tears ordered. Will discuss w/ dayshift RN in AM. SR/SA with PACs on tele. HR
90-100. Cardizem gtt at 5mg/hr to maintain HR 80-100. BP 100s/70s. DP/PT pulses by doppler. LEs cool. Afebrile via rectal probe. Heparin gtt at 550units/hr, next PTT 2315. On 6L NC. Lungs diminished and coarse, poor effort. Tachypneic at times. No
cough. Hypoactive bowel sounds. NPO maintained. Mouth care provided. Condom cath in place but no UO yet. Will bladder scan per protocol. Sacral and B/L heel foams in place. Bicarb gtt infusing per AUG. Turning q2
[2024-04-27 21:49] LABS: Blood Urea Nitrogen 111 mg/dl (9-20); Calcium 8.3 mg/dl (8.4-10.2); Carbon Dioxide 13 mmol/L (22-30); Chloride 115 mmol/L (98-107); Estimated Creatinine Clearance 19 ml/min; Glucose 357 mg/dl (70-99); Magnesium 2.2 mg/dl (1.6-2.3); Phosphorus 7.9 mg/dl (2.5-4.5); Potassium 5.4 mmol/L (3.5-5.1); Sodium 155 mmol/L (135-145); eGFR 25.05
--- NOTE | 2024-04-27 21:58 | PTCARENOTE ---
Lab results reviewed with MARÍA Florez. Bicarb gtt switched to SW instead of D5W due to hyperglycemia. Accucheck obtained = 337. 12 units insulin ordered. Recheck BG in 2 hours orders.
[2024-04-27 22:05] LABS: Glucose - Point of Care 337 mg/dl (70-99)
[2024-04-27] MEDS: NOVOLOG FLEXPEN 12 UNITS SC (22:15)
[2024-04-27 23:40] LABS: APTT 33.2 Sec (23.4-35.0)
[2024-04-27 23:41] LABS: Lactic Acid 6.3 mmol/L (0.7-2.0)
[2024-04-27 23:54] LABS: Troponin I 0.472 ng/ml
[2024-04-28] VITALS (37 sets, daily range): BP systolic 86–118; BP diastolic 60–94; BMI 15.4
[2024-04-28] MEDS: ZOSYN 50 IV ×5 (00:31→23:47)
[2024-04-28] MEDS: NOVOLOG FLEXPEN-LOW RESISTANCE SC ×2 (00:35→05:39)
[2024-04-28] MEDS: NOVOLOG FLEXPEN 8 UNITS SC (00:36)
--- NOTE | 2024-04-28 00:37 | PTCARENOTE ---
Pt. reassessed. Repeat BG = 283. HEAVY REPAIRER notified.. 8 units insulin ordered and given. Cardizem gtt was titrated to off due to hypotension. HR maintaining high 90s, NSR with PACs and PVCs. BP now 107/71 (83). PTT was low at 33.2. Heparin increased to
750units per protocol. O2 weaned to 3L NC. Neuro assessment unchanged, moving UEs purposefully at times and opened eyes but still no tracking or commands followed. Voiding via condom cath 500ml yellow/phoebe urine.
[2024-04-28 00:42] LABS: Glucose - Point of Care 283 mg/dl (70-99)
[2024-04-28] MEDS: REFRESH EYE DROPS (PF) 1 DROPS OPHTH (01:16)
[2024-04-28 03:46] LABS: % Basophils 0.8 % (0-2); % Immature Granulocytes 0.5 % (0-0.5); % Lymphocytes 13.8 % (20.5-51.1); % Monocytes 6.4 % (1.7-9.3); % Neutrophils 78.5 % (42.2-75.2); Absolute Basophils 0.1 10^3/uL (0-0.2); Absolute Lymphocytes 0.9 10^3/uL (1.2-3.4); Absolute Monocytes 0.4 10^3/uL (0.1-0.6); Absolute Neutrophils 5.2 10^3/uL (1.4-6.5); Hematocrit 39.4 % (39.0-52.0); Hemoglobin 13.4 g/dL (13.0-18.0); Mean Corpuscular Hgb 29.2 pg (27.0-31.0); Mean Corpuscular Volume 85.8 fL (80.0-94.0); Mean Platelet Volume 9.5 fL (7.4-10.4); Nucleated Red Blood Cells % 0 % (-); Platelet Count 222 10^3/uL (130-400); Red Blood Cell Count 4.59 10^6/uL (4.70-6.10); Red Cell Dist. Width 12.7 % (11.5-14.5); White Blood Cell Count 6.6 10^3/uL (4.8-10.8)
[2024-04-28 03:48] LABS: Lactic Acid 4.5 mmol/L (0.7-2.0)
--- NOTE | 2024-04-28 03:49 | PTCARENOTE ---
Pt. more alert this morning, mumbling words but not able to have appropriate conversation or answer questions. Some simple commands followed. Remains off cardizem gtt, HR 80s, BP 110/68. Weaned to RA, spo2 95%. AM labs drawn.
[2024-04-28 04:09] LABS: Vancomycin Random 5.9 ug/ml
[2024-04-28 04:19] LABS: ALT (SGPT) 42 U/L (0-50); AST (SGOT) 28 U/L (17-59); Albumin 2.8 g/dl (3.5-5.0); Alkaline Phosphatase 64 U/L (38-126); Blood Urea Nitrogen 109 mg/dl (9-20); Calcium 8.1 mg/dl (8.4-10.2); Carbon Dioxide 27 mmol/L (22-30); Chloride 114 mmol/L (98-107); Estimated Creatinine Clearance 22 ml/min; Glucose 143 mg/dl (70-99); Potassium 3.9 mmol/L (3.5-5.1); Sodium 159 mmol/L (135-145); Total Bilirubin 0.6 mg/dl (0.2-1.3); Total Protein 5.3 g/dl (6.3-8.2); eGFR 30.13
[2024-04-28] MEDS: 0.45%NACL 1000 IV (04:45)
[2024-04-28] MEDS: DEXTROSE 50% SYRINGE 12.5 GRAMS IV (05:38)
[2024-04-28 05:48] LABS: Glucose - Point of Care 64 mg/dl (70-99)
--- NOTE | 2024-04-28 06:02 | PTCARENOTE ---
Labs reviewed w/ DOUGH RAISER. IVF switched to 0.45%NS @ 60ml/hr.
Hypoglycemic on 0600 BG. D50 given per protocol. Repeat = 90. Difficult to assess if pt. symptomatic but no obvious changes in mentation. Bathed with CHG.
[2024-04-28 06:07] LABS: Glucose - Point of Care 90 mg/dl (70-99)
[2024-04-28 06:32] LABS: INR 1.28; PT 16.2 Sec (11.4-14.6)
[2024-04-28] MEDS: PROTONIX IV 40 MG IV (07:24)
[2024-04-28] MEDS: NSS (PRESERVATIVE FREE) 10 ML IV (07:25)
--- NOTE | 2024-04-28 07:51 | W.PN.NEPH.PH ---
Today's Communication / Plan
-
Continue to periodically perform random bladder
Follow BMP and electrolytes at 1 PM
Will transition IV fluids to quarter normal saline at 100 cc/h in setting of profound hypernatremia
Acute kidney injury continues to improve and metabolic acidosis resolved
Assessment/Plan
-
Impression:
Sepsis: suspected LLL PNA
Atrial fibrillation status post cardioversion with hemodynamic instability (likely secondary to sepsis)
Change of mental status obtunded/found down in skilled nursing
Acute kidney injury with creatinine of 3.2
Lactic metabolic acidosis
Hyperkalemia
Hypernatremia
Diabetes
BPH
Frontal temporal dementia
Positive troponin
Plan:
SANDY:
-Creatinine improved to 2.4 and nonoliguric ~900cc
-Likely a function of hypotension in the setting of sepsis and atrial fibrillation
-Need to maintain MAP of 65 or greater with IV fluids and/or pressors if required
-Urinalysis notes only trace albumin and trace ketones, no evidence of leukocytes or blood (doubt rhabdo) or urosepsis
-Checked random bladder scans while in ICU to assess for obstructive component given history of BPH
Hypernatremia:
-Calculated free water deficit ~3.5liters
-Will transition fluids to hypotonic IVFs (1/4NS) at 100cc/hr
-Recheck lytes later this afternoon
Gapped (26) and non gapped metabolic acidosis
-Likely due to lactic acidosis in the setting of sepsis and hypotension
-Now resolved
-ABG revealed some component of respiratory compensation PCO2 31 but still too high (therefore some component of respiratory acidosis)
AFIB:
-New onset status post cardioversion
-now off cardizem due to low bp
Sepsis:
-Broad-spectrum antibiotics with vancomycin and Zosyn
-Will need to be monitored by pharmacy for appropriate reduction of GFR which is currently less than 20 cc per minute
-Blood cultures pending
-
-
Date of Service: April 28, 2024
CC / HPI / ROS
-
Chief Complaint:
Acute kidney injury
History of Present Illness:
Creatinine down from 3.2 to 2.4
Metabolic acidosis improved following sodium bicarbonate
Remains in normal sinus rhythm off Cardizem drip
Hemodynamically labile
Review of Systems:
Low-grade fevers
Patient mental status a little bit more interactive today, nonverbal
Nonoliguric via condom catheter
Labs
-
Labs:
WBC 6.6 10^3/uL (4.8-10.8) 04/28/24 03:28
RBC 4.59 10^6/uL (4.70-6.10) L 04/28/24 03:28
Hgb 13.4 g/dL (13.0-18.0) 04/28/24 03:28
Hct 39.4 % (39.0-52.0) 04/28/24 03:28
Plt Count 222 10^3/uL (130-400) 04/28/24 03:28
Sodium 159 mmol/L (135-145) H 04/28/24 03:28
Potassium 3.9 mmol/L (3.5-5.1) D 04/28/24 03:28
Chloride 114 mmol/L (98-107) H 04/28/24 03:28
Carbon Dioxide 27 mmol/L (22-30) 04/28/24 03:28
BUN 109 mg/dl (9-20) H* 04/28/24 03:28
Creatinine 2.4 mg/dL (0.7-1.3) H 04/28/24 03:28
eGFR 30.13 04/28/24 03:28
Glucose 143 mg/dl (70-99) H 04/28/24 03:28
Calcium 8.1 mg/dl (8.4-10.2) L 04/28/24 03:28
Phosphorus 7.9 mg/dl (2.5-4.5) H 04/27/24 21:13
Rwa-K-Ohikigxpciz Pept 4330 pg/ml 04/27/24 11:28
Albumin 2.8 g/dl (3.5-5.0) L 04/28/24 03:28
Physical Exam
-
Vital Signs:
Vital Signs
Temp Pulse Resp BP Pulse Ox
99.4 F 86 27 117/66 96
04/28/24 07:20 04/28/24 06:30 04/28/24 06:30 04/28/24 06:30 04/28/24 06:30
Cardiovascular:: Regular rate and rhythm
Respiratory:: Bilateral: Coarse
Lung Excursion:: Normal
Abdomen:: Nontender and Soft
Bowel Sounds:: Decreased
Extremity Edema:: None: Bilateral:
Gilbert Catheter: No
[2024-04-28 08:03] LABS: Lactic Acid 3.1 mmol/L (0.7-2.0)
[2024-04-28 08:13] LABS: Glucose - Point of Care 100 mg/dl (70-99)
[2024-04-28 08:20] LABS: Troponin I 0.415 ng/ml
--- NOTE | 2024-04-28 08:21 | PTCARENOTE ---
0700 patient received in bed.
Cardizem off. Heparin at 9.5unit or; 0.45 NSS will be changed to Sterile Water/Sodium Bicarb; Patient on RA
Patient Open eyes to pain stimuli only, Unable to tack, or follow commands. Pupils +2 round equal, reactive to light. Strong gag reflex
SR 89 on telemetry; S1 and S2 auscultation. + Murmur. No edema. Pedal pulses check via Doppler
BP via left upper arm: 112/70 MAP; Rectal Tem 99.3; SR 89; RR 23
Lungs RA diminished RR even No SOB no cough ; Unable to obtain sputum
Abdomen soft non-tender BS present
Incontinent of urine; Condom catheter #25 draining yellow urine
Skin: multiple pressure ulcers see skin assessment
--- NOTE | 2024-04-28 08:30 | PHA.VAN.FU ---
Vancomycin Assessment / Plan
- Assessment
Renal Function: SCR Decreasing
WBC's are: Trending Down
In the past 24 hrs, patient has been: Febrile (Tmax = 101.5)
Concomitant Antimicrobials: Piperacillin-tazobactam
- Assessment - Therapeutic Drug Monitoring
Random Level: R = 5.9 ~14hrs post Vanc 1250mg--26mg/kg
- Dosing Plan
Continue: Dose by level
Dosing by Level: Re-dose today (Vanc 750mg--15.9mg/kg)
- Monitoring Plan
Random Level: 11 AM
- Follow Up
Pharmacy will continue to follow.
Vancomycin Follow UP
- -
Patient Age: 59
Patient Sex: Male
Vancomycin Day #: 2
Indication: Pulmonary/Respiratory
Requesting Provider: Dr. De La Rosa
Pertinent Antimicrobial Allergies:
NKDA
Height / Weight:
Height 5 ft 9 in
Actual Weight 47.2 kg
IBW in k.7
Pertinent Past Medical History: BMI ~15.5, DM
- Vital Signs / Lab Results
Temp Pulse Resp BP Pulse Ox
99.4 F 86 27 117/66 96
04/28/24 07:20 04/28/24 06:30 04/28/24 06:30 04/28/24 06:30 04/28/24 06:30
Lab Results - Hematology
04/27/24 04/27/24 04/28/24
11:29 19:29 03:28
WBC 11.7 H 7.9 6.6
Band Neutrophils 21 H
Lab Results - Chemistry
04/27/24 04/27/24 04/28/24
11:28 21:13 03:28
BUN 113 H* 111 H* 109 H*
Creatinine 3.2 H 2.8 H 2.4 H
Estimated Creat Clear 19 22
Albumin 3.5 2.8 L
04/27/24 04/27/24 04/27/24
14:48 16:20
Lactic Acid 6.4 H* 8.3 H* 8.0 H*
04/27/24 04/27/24 04/28/24
19:29 23:20 03:20
Lactic Acid 6.3 H* 6.3 H* Cancelled
04/28/24 04/28/24
03:28 07:45
Lactic Acid 4.5 H* 3.1 H
Lab Results - Urine
04/27/24
11:28
Urine Nitrite (Reflex) Negative
Leukocyte Esterase Rfl Negative
Microbiology Results
04/27/24 11:29 Influenza Types A & B (CAREY) - Final
Nasal Swab Negative for Influenza A & B, NAAT
Negative results must be combined with clinical observations
and patient history.
Nucleic Acid Amplification test (NAAT)performed on the
[employer] platform.
Therapeutic Drug Monitoring
Random Vancomycin 5.9 ug/ml 04/28/24 03:28
--- NOTE | 2024-04-28 08:58 | W.PN.HOSP.TC ---
Addendum entered and electronically signed by Pat Tafoya MD 04/28/24 14:46:
I saw and evaluated the patient independently. I reviewed the resident�s note and agree with findings and plan as documented by Dr. Sanches.
GENERAL: chronically ill, cachectic male in no apparent distress
HEENT: NC/AT--NO O2 requirements
HEART: regular rate and rhythm, +S1, +S2
LUNGS : clear to auscultation bilaterally
ABDOM: soft, nontender, nondistended, + bowel sounds
EXT: no cyanosis, clubbing, or edema
NEUROLOGIC: unable to assess
: condom cath
Toxic metabolic encephalopathy-- likely multifactorial (hypernatremia, sepsis, CVA, seizure)--head CT negative--treat what we can to reverse what we can--no need for neuro or EEG--family also doesn't want pressors--agree with aspiration
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
sepsis with Acute hypoxemic resp insufficiency with mixed acid base disorder--likely aspiration--cont vanco/zosyn--NPO/IVF--ABG reviewed--pt with gapped and nongapped metabolic acidosis, lactic acidosis, respiratory acidosis, with likely contraction
metabolic alkalosis--WBC with left shift and bandemia--presume aspiration--trend lactates, improved from admission
Severe Hypernatremia with SANDY/hyperkalemia--due to poor PO intake, sepsis--cont hypotonic IVF--apprec renal--condom cath--zaldivar if needed--free water deficit ~4L
new onset rapid afib (never had before) with Presumed nonischemic myocardial injury troponin elevation--off cardizem drip and converted back to NSR--apprec cards--would elect NOT to give anticoagulation given decline as per family--echo pending
Type 2 DM insulin requiring--- hold Home insulin regimen- add ISS low
HX of Mood disorder with aggressive behaviors --valproic acid level low--change to IV meds if possible-- Hold INFORMATION SECURITY SPECIALIST Valproate, Lorazepam, Loxapine--as pt metabolically recovers, watch for need for restraints, etc
HX BPH-hold Flomax while NPO
Obtain records form [facility] admission from November to 2023 --never been here before
DVT proph
code status--DNR/DNI/no pressors
Total Critical Care Time 40 minutes. I was immediately available to the patient and staff. I personally examined, reviewed labs, diagnostic images/reports, interpretations, treatment plans, discussed patient care with other providers and family
or caregivers (if patient is unable to make decisions), entered orders as appropriate and documented the medical record.
Original Note:
Today's Communication/Plan
-
ID, cardiology, nephrology following; appreciate recs
Assessment / Plan
Assessment / Plan
59yo M with H frontotemporal dementia (with aggressive behavioral dysfunction), HTN, DM on insulin, h/o mood disorder, who presented to ED 04/27/24 for altered mental status and tachycardia. At baseline, patient is apparently combative and
yelling, resides at nursing facility for dementia. Prior to arriving at hospital, patient was nonverbal.
Toxic metabolic encephalitis
Obtunded on hospital admission
- Likely multifactorial in nature- sepsis, pneumonia, hypernatremia, afib may be contributing- see below for individual plans
- Head CT 04/27 negative for acute intracranial stroke, hemorrhage, mass
- NPO, aspiration requirements
Sepsis present on admission secondary to pneumonia
LLL pneumonia, suspected secondary to aspiration
Acute hypoxic respiratory insufficiency, respiratory acidosis
High anion gap metabolic acidosis, secondary to lactic acidosis
- Chest xray 04/27 showed possible L pneumonia, atelectasis, or pleural effusion
- Febrile on admission 101.5 rectally (04/27 @ 11:30)
- Lactic acid peaked at 8.3, trended down to 3.1 this AM
- Blood cultures 04/27 pending
- Required nonrebreather in ED, now on room air
- ID consulted, appreciate recs. Continue antibiotics per ID.
- Furniture Crater consulted, appreciate recs.
Severe hypernatremia
Acute kidney injury
- Estimated FWD approximately 3.5 on admission
- Cr. 3.2 on admission, unknown baseline --> 2.4 this AM. eCrCl 22.
- Nephrology consulted, appreciate recs.
- Continue IVF per nephrology
Chronic afib, not on anticoagulation prior to admission
- S/p cardioversion in ED 04/27/24
- S/p diltiazem gtt --> discontinued due to hypotension- family does not want pressors
Elevated troponin, likely nonischemic myocardial injury secondary to sepsis
- Troponin 0.926 on admission --> downtrended to 0.415
- Downtrended appropriately, no further intervention at this time
Elevated pro BNP, likely secondary to afib with RVR vs chronic diastolic dysfunction
- ProBNP 4330 on admission
Diabetes mellitus
- Insulin sliding scale
H/o mood disorder
Possible seizure disorder
- Home meds held due to NPO: valproate 500mg BID, lorazepam 0.5mg qHS, loxapine 25mg qD and 50mg qHS
- Initiate IV valproic acid 250mg q6h
- Lorazepam IV qHS
H/o BPH
- Continue home flomax
H/o frontotemporal dementia and behavioral issues at baseline
Code status: DNR, DNI
Per prior documentation 04/27: POA does not want escalation of care. Understanding of poor prognosis. Continue IV antibiotics and labs.
VTE ppx: heparin
Diet: NPO
Dispo planning: TBD
Anticipated Discharge: > 48 hours
Subjective/Interval History
-
Date of Service: April 28, 2024
Overnight, his fluids were adjusted for elevated and low blood sugars, and his cardizem was stopped due to hypotension. This morning, he is awake in bed and seems to acknowledge my presence though does not respond to any questions.
Objective Data
-
Labs:
Laboratory Results
04/27/24 04/27/24 04/28/24
21:13 23:20 03:28
WBC 6.6
Hgb 13.4
Hct 39.4
Plt Count 222
PT
INR
APTT 33.2
Sodium 155 H 159 H
Potassium 5.4 H 3.9 D
Chloride 115 H 114 H
Carbon Dioxide 13 L* 27
BUN 111 H* 109 H*
Creatinine 2.8 H 2.4 H
Glucose 357 H 143 H
Calcium 8.3 L 8.1 L
Total Bilirubin 0.6
AST 28
ALT 42
Alkaline Phosphatase 64
04/28/24 04/28/24
06:02 13:00
WBC
Hgb
Hct
Plt Count
PT 16.2 H
INR 1.28
APTT 43.0 H Pending
Sodium Pending
Potassium Pending
Chloride Pending
Carbon Dioxide Pending
BUN Pending
Creatinine Pending
Glucose Pending
Calcium Pending
Total Bilirubin
AST
ALT
Alkaline Phosphatase
04/27/24 11:29 Influenza Types A & B (CAREY) - Final
Nasal Swab Negative for Influenza A & B, NAAT
Negative results must be combined with clinical observations
and patient history.
Nucleic Acid Amplification test (NAAT)performed on the
[employer] platform.
Vital Signs:
Vital Signs
Temp Pulse Resp BP Pulse Ox
99.4 F 86 27 117/66 96
04/28/24 07:20 04/28/24 06:30 04/28/24 06:30 04/28/24 06:30 04/28/24 06:30
I&O
04/27/24 04/28/24 04/29/24
06:59 06:59 06:59
Intake Total 1778.0 / 1847.5 139.0 / 139.0
Output Total 900 / 900
Balance 878.0 / 947.5 139.0 / 139.0
Review of Systems
-
Unable to obtain full review of systems at this time due to: Dementia and Patient Non-verbal
Physical Exam
-
General: No Apparent Distress, Comfortable, Appears Chronically Ill and Cachectic
HEENT: Normocephalic, Atraumatic and Anicteric; Negative Oxygen
Respiratory: Clear to Auscultation (anterior lung brown) and Non Labored Respirations
Cardiac: Regular Rhythm and S1/S2
GI: Soft, Nontender, Nondistended and Normal Bowel Sounds
Musculoskeletal: No Edema
Skin: Warm and Dry
Neuro: Awake; Negative Alert or Oriented
Psych: Calm; Negative Intact Judgement/Insight
Data Reviewed
-
Diagnostic Radiology: Image personally visualized and interpreted and Report Reviewed by me
CT Scan: Image personally visualized and interpreted and Report Reviewed by me
Labs: Labs Reviewed by me
--- NOTE | 2024-04-28 09:05 | W.PN.ID1 ---
Date of Service
Date of Service: April 28, 2024
Today's Communication
- agree with vancomycin and zosyn at this time
- if mrsa screen negative can stop vancomycin
Assessment / Plan
Septic Shock
Suspected Aspiration Pneumonia
Altered Mental Status
Frontotemporal Dementia
SANDY
Hypernatremia, Uremia
- blood cultures x2 in progress
- sputum if able to obtain one
- mrsa nasal screen
- agree with vancomycin and zosyn at this time
- if mrsa screen negative can stop vancomycin
- prognosis guarded
Chief Complaint
-: Fever, Pneumonia and Other (AMS)
Subjective / Review of Systems
no further fevers
BP stable
Vital Signs / Physical Exam
Vital Signs
Vital Signs
Temp Pulse Resp BP Pulse Ox
99.4 F 86 27 117/66 96
04/28/24 07:20 04/28/24 06:30 04/28/24 06:30 04/28/24 06:30 04/28/24 06:30
Physical Exam
Constitutional: No Acute Distress
Cardiovascular: Regular Rate and S1/S2; Negative Murmur or Rub
Pulmonary: Clear and Symmetric; Negative Wheezes or Rales
Gastrointestinal: Soft, Non Tender, Non Distended and Normal Bowel Sounds
Skin: Warm and Dry; Negative Rash or Jaundice
Wound: Other (stage 1 pressure wound on the L heel- offloaded)
Neurological: Negative Awake or Alert
Objective Data
Lab Data
Lab Results
04/28/24 03:28
PT 16.2 Sec (11.4-14.6) H 04/28/24 06:02
INR 1.28 04/28/24 06:02
APTT 43.0 Sec (23.4-35.0) H 04/28/24 06:02
Estimated Creat Clear 22 ml/min 04/28/24 03:28
Lactic Acid 3.1 mmol/L (0.7-2.0) H 04/28/24 07:45
Total Bilirubin 0.6 mg/dl (0.2-1.3) 04/28/24 03:28
AST 28 U/L (17-59) 04/28/24 03:28
ALT 42 U/L (0-50) 04/28/24 03:28
Alkaline Phosphatase 64 U/L (38-126) 04/28/24 03:28
Most recent labs reviewed.
Micro Results:
04/27/24 16:10 Blood Culture - Pending
Blood/Venous
04/27/24 16:10 Nasal Screen MRSA (PCR) - Pending
Nose
04/27/24 16:20 Blood Culture - Pending
Blood/Venous
04/27/24 11:29 Influenza Types A & B (CAREY) - Final
Nasal Swab Negative for Influenza A & B, NAAT
Negative results must be combined with clinical observations
and patient history.
Nucleic Acid Amplification test (NAAT)performed on the
[employer] platform.
04/27/24 11:28 Blood Culture - Pending
Blood/Venous
04/27/24 11:28 Blood Culture - Pending
Blood/Venous
Care Review
Plan reviewed with: Physician (Dr Tafoya - wounds)
[2024-04-28 09:25] LABS: Glycohemoglobin (HgbA1c) 7.9 % (4.0-5.6)
--- NOTE | 2024-04-28 09:31 | W.PN.CD ---
Today's Communication / Plan
-
Trop peaked at 0.926, the first troponin
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
Elective echo
Impression / Plan
-
AFib with RVR, 200 bpm, sinus tach after cardioversion
- S/p emergent cardioversion in ER
- Agree with ER, 30 days of Eliquis or some full dose anticoagulation is appropriate
- Afib likely from acute medical illness
- [id number] seems to be 1 for hx HTN
- If anticoagulation well tolerated consider continuing anticoagulation job boss can be considered depending on status of progressive dementia
Abnormal troponin => nonischemic myocardial injury related to sepsis
- Peak troponin was first trop 0.9
- Elective echo
- I see no role for stress testing. 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
Suspected sepsis
- CXR supports LLL pneumonia
- Cultures negative as of 04/28/2024 AM
Altered mental status
Dementia, fronto-temporal
- Significant/advanced
SANDY
hyperkalemia
Lactic acidosis
Hypernatremia
DM
Mixed hyperlipidemia
Subjective/Interval Hx:
Improving overall, no more AFib seen
Physical Exam
Vital Signs/Labs
Vital Signs
Temp Pulse Resp BP Pulse Ox
99.4 F 85 24 113/69 94
04/28/24 07:20 04/28/24 09:00 04/28/24 09:00 04/28/24 09:00 04/28/24 09:00
04/27/24 04/28/24 04/29/24
06:59 06:59 06:59
Actual Weight 47.2 kg
04/28/24 03:28
PT 16.2 Sec (11.4-14.6) H 04/28/24 06:02
INR 1.28 04/28/24 06:02
APTT 43.0 Sec (23.4-35.0) H 04/28/24 06:02
Magnesium 2.2 mg/dl (1.6-2.3) 04/27/24 21:13
04/27/24
:28
Ist-D-Gypejwcodsg Pept 4330
LAB Results
04/27/24 04/27/24 04/27/24
16:20 21:00
Troponin I 0.926 H* 0.859 H* Cancelled
04/27/24 04/28/24
23:20 07:45
Troponin I 0.472 H* D 0.415 H*
Physical Exam
Cardiovascular: Rhythm & rate is regular and Pedal edema is absent
Respiratory: Respiratory effort normal and Lungs clear to auscul.
GI: Soft and Distention absent
Neuro/Psych: Other (looks more alert but did not answer my questions and did not follow my requests to move)
Data Reviewed
-
Date of Service: April 28, 2024
[2024-04-28] MEDS: SODIUM CHLORIDE 1094.625 MEQ IV ×6 (09:57→19:22)
[2024-04-28] MEDS: VANCOCIN 150 IV (10:08)
[2024-04-28 10:28] LABS: Glucose - Point of Care 108 mg/dl (70-99)
--- NOTE | 2024-04-28 11:00 | PTOTSP ---
ST Screening
Chart reviewed. Pt admitted from nursing facility after being found down. Of note, pt with recent hospitalization from November-April 18, 2024 for behavioral dysfunction and PNA. Upon arrival to this ED, pt was obtunded, tachycardic to 200s, and
required emergent cardioversion. Pt dx with afib with RVR, acute metabolic encephalopathy, severe sepsis, severe lactic acidosis, acute hypoxic respiratory failure, severe hypernatremia, and SANDY. Pt's medical hx significant for IDDM, HLD, HTN, BPH,
and frontotemporal dementia dx about 7 years ago with associated aggressive behavior (baseline: combative and yelling). Pt has reportedly had significant weight loss (70lbs) and reduced PO intake as of recently. Pt's baseline diet unknown. Pt
febrile upon admission to 101.5 and requiring 3L of supplemental O2 via nasal cannula. CXR indicative of possible PNA. Lab work significant for WBC 11.7, troponin 0.45, lactic acidosis 3.1, Na 159, BUN 109, and creatinine 2.4. Pt currently NPO
because he is obtunded. Pt made DNR/DNI - pt has a poor prognosis.
Given the above information, would recommend placing an order for a comprehensive ENGRAVER PANTOGRAPH evaluation WHEN the pt is awake, alert, and can appropriately/meaningfully participate.
[2024-04-28] MEDS: NOVOLOG FLEXPEN-LOW RESISTANCE 1 UNITS SC ×2 (12:17→17:11)
[2024-04-28 12:26] LABS: Glucose - Point of Care 163 mg/dl (70-99)
--- NOTE | 2024-04-28 12:34 | W.PN.INTV ---
Today's Communication / Plan
Recommendations
Continue antibiotic
IV fluid
Follow electrolytes
Follow cultures
Aspiration precautions
Wean down FiO2
Would focus on comfort
Transfer to intermediate care unit.
Pulmonary will continue to follow briefly
Assessment
-
59-year-old man with frontotemporal dementia. Found down at the [place] [facility]. It was brought into the hospital for further evaluation. Found to be in rapid atrial fibrillation requiring emergent cardioversion in the emergency room. Found to have
profound metabolic acidosis, hypernatremia with dehydration hypoxemia and possible aspiration
Acute hypoxemic respiratory failure likely due to aspiration pneumonia/pneumonitis
Toxic metabolic encephalopathy-possible history of seizures-patient was found down at the [place] [facility]
Severe Sepsis: Possibly pneumonia--Cannot rule out aspiration
Heart failure-unknown type.
proBNP elevated
Rapid atrial fibrillation
Troponin increased-likely non-ND
Anion gap metabolic acidosis
Acute kidney injury
Hyponatremia
Hyperkalemia
Hypernatremia-volume depletion
Conditions present prior admission:
Frontotemporal dementia with aggressive behavior
Insulin-dependent diabetes
History of mood disorder on Depakote
BPH
Malnutrition-cachectic
Prolonged admission at [facility] [place] March 2024-unclear details
Assessment and plan:
Critically ill, toxic metabolic encephalopathy-cannot rule out seizure spell.-
CT head negative
Overnight no vasopressor requirements.
Slightly improving mental status. He remains Somnolent. Now trying to move extremities.
Minimal coughing.
-
Hypoxemic/hypercapnic acute respiratory failure: Chest x-ray showed left lower lobe possible infiltrate. Cannot rule out aspiration event versus atelectasis.
ABG 7.-patient's mental status continues to be poor. He is obtunded.
Not a candidate for noninvasive mechanical ventilation
DNR status
Continue oxygen supplementation-maintain pulse ox above 90%.
Prognosis is poor
Will not repeat ABG as there is no escalation of care and he is not a candidate for aggressive intervention at this point
-
Agree with antibiotics to cover for possible aspiration pneumonia
Currently Zosyn/vancomycin
Check MRSA screening if negative hopefully can discontinue vancomycin-pending
Infectious disease following
-
Leukocytosis improved
No longer febrile.
-
Severe sepsis-blood pressure improved after IV fluids
No vasopressor requirement.
Anion gap metabolic acidosis/respiratory acidosis: Lactic acidosis with poor compensation.
Resolved acidosis 04/28/2024.
Lactic acid improving.
Status post fluid resuscitation-now transition to hypotonic solution due to hyponatremia.
Bicarbonate drip discontinued
-
Not a candidate for noninvasive mechanical ventilation-poor mental status.
would not want escalation of care, mechanical ventilation or CPR. DNR status. She would not want pressors either.
-
Hyperkalemia resolved
Hypernatremia noted-nephrology following.
On IV fluids
Follow renal function, trending lower.
-
Atrial fibrillation status post cardioversion. Heart rate improved
Cardizem drip discontinued
Cardiology correspondence reviewed, anticoagulation continue for now
-
Increase in [id number]. Trending lower.
Eventual echo cardiogram
-
N.p.o. for now
Head of the bed elevation if possible
-
Dr. Escobar personally discussed with the power of personal injury attorney at the bedside, 04/27/2024. Patient has been losing weight clinically deteriorating over the last few years. Lost about 70 pounds. Now nonambulatory. She would not want intubation, CPR
or escalation of care. Continue with antibiotics and IV fluids. Okay with labs. Prognosis is poor and she understands.
-
Patient now is DNR status, not requiring vasopressors. He will not be intubated. Not a candidate for noninvasive mechanical ventilation.
No longer requiring continuous Cardizem drip.
Will transfer to intermediate care unit.
Pulmonary will continue to follow briefly for hypoxemia possible aspiration pneumonia
Subjective Dataa
Subjective Data
Date of Service:
Date of Service: April 28, 2024
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
Review of Systems
General: Other (Unable to obtain due to underlying dementia and acute illness)
Objective Data
Data Reviewed
Vital Signs / I&O / Oxygen:
Vital Signs
Temp Pulse Resp BP Pulse Ox
99.2 F 85 20 101/72 94
04/28/24 11:59 04/28/24 10:15 04/28/24 10:15 04/28/24 10:00 04/28/24 10:00
Intake and Output
04/27/24 04/28/24 04/29/24
06:59 06:59 06:59
Intake Total 1778.0 / 1847.5 427.5 / 427.5
Output Total 900 / 900 450 / 450
Balance 878.0 / 947.5 -22.5 / -22.5
SaO2 94
Nasal Cannula flow liters per 3
minute
Physical Exam
General: Comfortable and Other (Cachectic)
HEENT: Normocephalic
Cardiovascular: S1-S2
Respiratory: Clear and Non-Labored Respirations
GI: Soft and Non Distended
Neurology: Other (Lethargic, trying to move extremities. Occasional mild coughing. Not following commands.)
Skin: Warm
Labs/Micro/Reports
Lab Data
04/28/24 03:28
Laboratory Results
04/27/24 04/27/24 04/27/24
13:20 16:47 23:20
PT
INR
APTT Cancelled 33.2
pH 7.25 L
pCO2 31 L
pO2 92
HCO3 13.6 L*
O2 Delivery Level Nrb
04/28/24
06:02
PT 16.2 H
INR 1.28
APTT 43.0 H
pH
pCO2
pO2
HCO3
O2 Delivery Level
Microbiology
04/27/24 11:28 Blood/Venous Blood Culture - Preliminary
No Growth in 24 hours- Final report to follow
04/27/24 11:28 Blood/Venous Blood Culture - Preliminary
No Growth in 24 hours- Final report to follow
04/27/24 11:29 Nasal Swab Influenza Types A & B (CAREY) - Final
Negative for Influenza A & B, NAAT
Negative results must be combined with clinical observations
and patient history.
Nucleic Acid Amplification test (NAAT)performed on the
[employer] platform.
[2024-04-28 13:00] LABS: APTT 66.2 Sec (23.4-35.0)
[2024-04-28 13:01] LABS: Lactic Acid 1.9 mmol/L (0.7-2.0)
[2024-04-28 13:10] LABS: Blood Urea Nitrogen 96 mg/dl (9-20); Calcium 8.1 mg/dl (8.4-10.2); Carbon Dioxide 27 mmol/L (22-30); Chloride 112 mmol/L (98-107); Estimated Creatinine Clearance 26 ml/min; Glucose 174 mg/dl (70-99); Potassium 3.9 mmol/L (3.5-5.1); Sodium 154 mmol/L (135-145)
--- NOTE | 2024-04-28 15:35 | PTOTSP ---
ST Consult
Chart reviewed. Pt admitted from [facility] after being found down with altered mental status, obtunded/nonverbal, and tachycardic. Pt received emergent cardioversion in ED. Pt was recently admitted to an outside hospital from November through March for
behavioral dysfunction 2/2 underlying frontotemporal dementia and PNA. Pt admitted here for afib with RVR, acute metabolic encephalopathy, acute hypoxic respiratory failure 2/2 suspected aspiration PNA, severe sepsis, sever lactic acidosis, SANDY, and
severe hypernatremia. Pt has also had a reported 70lb weight loss recently. Unknown baseline diet. Pt's medical hx significant for frontotemporal dementia (dx 7 years ago; baseline - combative/yelling), HTN, HLD, IDDM, BPH.
Spoke with RN. Pt's mentation is slightly improved in comparison to yesterday but pt remains too lethargic to meaningfully and safely participate in LICENSED PROSTHETIST/ORTHOTIST evaluation at this time. Will defer evaluation until tomorrow. Recommend strict NPO status with
aspiration precautions (HOB raised; oral care QID) until formal LICENSED PROSTHETIST/ORTHOTIST evaluation can be completed.
--- NOTE | 2024-04-28 15:53 | CM ---
CM following re: d/c planning.
Pt presents to from [facility].
CM spoke with GREGORY Sullivan.
Informed that pt is total care, able to converse, curses often.
She states he is able to eat and drink.
Pt likes to be left alone.
CM continuing to follow for d/c planning.
Goal: return to [facility] at d/c.
--- NOTE | 2024-04-28 16:20 | PTCARENOTE ---
patient in bed. telemetry 81 SR; BP via left upper arm 113/77 MAP 87; RR 27; 96/2L . occasional moist non-productive couch. Condom catheter draining clear yellow urine Bladder scanned for 245. pt lethargic. On 2L of oxygen 96% . RA 89%
[2024-04-28 17:24] LABS: Glucose - Point of Care 162 mg/dl (70-99)
[2024-04-28] MEDS: DEPACON 52.5 MG IV (18:00)
--- NOTE | 2024-04-28 19:19 | PTCARENOTE ---
Assumed care of pt. approx 1900.
Remains on heparin gtt, and bicarb.
Still lethargic, does not follow commands, maintaining own airway.
Normal sinus w/o ectopy noted, normotensive, normothermic.
[2024-04-28 21:19] LABS: APTT 89.3 Sec (23.4-35.0)
[2024-04-28] MEDS: ATIVAN 0.25 MG IV (23:07)
[2024-04-28] MEDS: NSS (PRESERVATIVE FREE) 0.125 ML IV (23:08)
[2024-04-28] MEDS: SODIUM CHLORIDE 1009.625 MEQ IV (23:08)
[2024-04-28] MEDS: NOVOLOG FLEXPEN-LOW RESISTANCE 2 UNITS SC (23:50)
[2024-04-29] VITALS (23 sets, daily range): BP systolic 90–151; BP diastolic 66–109; BMI 15.6
[2024-04-29 00:01] LABS: Glucose - Point of Care 211 mg/dl (70-99)
[2024-04-29] MEDS: DEPACON 52.5 MG IV ×5 (00:16→23:01)
--- NOTE | 2024-04-29 01:54 | PTCARENOTE ---
Heparin gtt renewed by house SECURITY SYSTEM ANALYST, per call, cont. gtt at current rate of protocol 1050 U/hr. therapeutic x1, next ptt 0300.
[2024-04-29 03:32] LABS: Hematocrit 36.8 % (39.0-52.0); Hemoglobin 12.6 g/dL (13.0-18.0); Mean Corp Hgb Conc. 34.2 g/dL (33.0-37.0); Mean Corpuscular Hgb 29.2 pg (27.0-31.0); Mean Corpuscular Volume 85.4 fL (80.0-94.0); Mean Platelet Volume 9.5 fL (7.4-10.4); Platelet Count 172 10^3/uL (130-400); Red Blood Cell Count 4.31 10^6/uL (4.70-6.10); Red Cell Dist. Width 12.5 % (11.5-14.5); White Blood Cell Count 4.8 10^3/uL (4.8-10.8)
[2024-04-29 03:37] LABS: APTT 78.8 Sec (23.4-35.0)
[2024-04-29 04:00] LABS: Blood Urea Nitrogen 83 mg/dl (9-20); Calcium 8.5 mg/dl (8.4-10.2); Carbon Dioxide 32 mmol/L (22-30); Chloride 110 mmol/L (98-107); Estimated Creatinine Clearance 33 ml/min; Glucose 176 mg/dl (70-99); Potassium 4.2 mmol/L (3.5-5.1); Sodium 151 mmol/L (135-145); eGFR 49.02
--- NOTE | 2024-04-29 04:16 | PTCARENOTE ---
Heparin gtt now in therapeutic range.
[2024-04-29] MEDS: ZOSYN 50 IV ×4 (06:06→23:01)
[2024-04-29] MEDS: NOVOLOG FLEXPEN-LOW RESISTANCE 1 UNITS SC ×3 (06:10→23:01)
[2024-04-29 06:21] LABS: Glucose - Point of Care 183 mg/dl (70-99)
--- NOTE | 2024-04-29 06:26 | PTCARENOTE ---
pt. desatting sp02 86 on 6L, Resp. notified will place on midflo.
--- NOTE | 2024-04-29 08:14 | W.PN.UPDATE ---
Update Note
Progress Note Update
I saw and evaluated the patient independently. I reviewed the resident�s note and agree with findings and plan as documented by Dr. Sanches.
Gen: NAD, NCAT
CV: RRR, +S1/S2, no m/r/g.
Resp: CTAB, no rales, wheezes, or rhonchi.
Abd: +BS, soft, NT, ND
Skin: No rashes.
Neuro: unresponsive to voice and shoulder shake
Psych: Normal mood and affect.
04/27/24 16:10 Blood/Venous Blood Culture - Preliminary
No Growth in 24 hours- Final report to follow
04/27/24 16:20 Blood/Venous Blood Culture - Preliminary
No Growth in 24 hours- Final report to follow
04/27/24 16:10 Nose Nasal Screen MRSA (PCR) - Final
MRSA not detected - performed by PCR methodology.
04/27/24 11:28 Blood/Venous Blood Culture - Preliminary
No Growth in 24 hours- Final report to follow
04/27/24 11:28 Blood/Venous Blood Culture - Preliminary
No Growth in 24 hours- Final report to follow
04/27/24 11:29 Nasal Swab Influenza Types A & B (CAREY) - Final
Negative for Influenza A & B, NAAT
Negative results must be combined with clinical observations
and patient history.
Nucleic Acid Amplification test (NAAT)performed on the
[employer] platform.
CT brain: No acute intracranial abnormality.
CXR: Left hemidiaphragm somewhat obscured suggesting opacification such as subsegmental atelectasis and/or pneumonia and possible small left pleural effusion.
Sepsis, POA:
-With acute hypoxemic respiratory insufficiency, SANDY, and mixed acid-base disorder (AG met acidosis, respiratory acidoses, and contraction alkalosis)
-Likely due to aspiration pneumonitis
-currently on empiric Vanco/Zosyn. Stop Vanco with NEG MRSA screen, NEG cultures.
-BCxs NGTD
-Flu/COVID NEG
-cont IVFs (currently with bicarb), lactic acidosis now resolved, SANDY improving
-leukocytosis, POA, resolved
Acute metabolic encephalopathy:
-likely multifactorial (hypernatremia, sepsis, CVA, seizure)
-h/o frontotemporal dementia x 7 years, family wants minimal intervention
Electrolyte abnormalities:
-Hypernatremia, improving on hypotonic IVF
-Hyperkalemia, resolved
New onset afib with RVR:
-elevated trop is acute nonischemic myocardial injury due to afib with RVR
-cardiology following
-was on cardizem gtt, now converted back to NSR
-family does not want AC emt intermediate, currently on heparin gtt
-echo pending
Other problems:
DM2: SSI/accuchecks
Severe protein calorie malnutrition
h/o Mood disorder with aggressive behaviors --valproic acid level low--change to IV meds if possible-- Hold RADIOLOGIST Valproate, Lorazepam, Loxapine--as pt metabolically recovers, watch for need for restraints, etc
BPH: holding flomax
DNR/DNI
heparin gtt
Attempted to reach family over the phone, no answer. Reasonable to discuss goals of care.
[2024-04-29] MEDS: NSS (PRESERVATIVE FREE) 10 ML IV (08:18)
[2024-04-29] MEDS: PROTONIX IV 40 MG IV (08:19)
--- NOTE | 2024-04-29 08:22 | W.PN.PUL3 ---
Today's Communication / Plan
-
Aspiration precautions
HOB >30-45�
Abx as per ID
Repeat CXR tomorrow
prn DuoNebs
Guarded prognosis - seems appropriate for comfort care/hospice
Continue heparin gtt given A-fib (although now in NSR) - eventual NOAC
Continue hypotonic IVF; trend sNa
Pulmonary service will continue to briefly follow along
Assessment
-
59-year-old man with frontotemporal dementia. Found down at the custodial. It was brought into the hospital for further evaluation. Found to be in rapid atrial fibrillation requiring emergent cardioversion in the emergency room. Found to have
profound metabolic acidosis, hypernatremia with dehydration hypoxemia and possible aspiration
Impression:
Acute hypoxemic respiratory failure likely due to aspiration pneumonia/pneumonitis
Toxic metabolic encephalopathy-possible history of seizures-patient was found down at the custodial
Severe Sepsis: Possibly pneumonia--Cannot rule out aspiration
Acute HFpEF (proBNP elevated)
Rapid atrial fibrillation now in NSR
Lactic acidosis � now resolved
Troponin increased-due to demand ischemia with type II [place] (troponin peaked at 0.926 on 04/27/2024)
Anion gap metabolic acidosis - resolved
Acute kidney injury - improving
Hyperkalemia - resolved
Hypernatremia-volume depletion
Conditions present prior admission:
Frontotemporal dementia with aggressive behavior
Insulin-dependent diabetes
History of mood disorder on Depakote
BPH
Malnutrition-cachectic
Prolonged admission at [facility] March 2024-unclear details
Assessment and plan:
Patient remains minimally responsive although hemodynamically stable, with improving hypoxia on mid flow nasal cannula
CT head negative
Minimal coughing
-
Hypoxic acute respiratory failure: Chest x-ray showed left lower lobe possible infiltrate. Cannot rule out aspiration event versus atelectasis (no prior CXR to compare to)
ABG 7.-patient's mental status continues to be poor. He is obtunded - no evidence for hypercapnia to be cause of patient's AMS
Not a candidate for noninvasive mechanical ventilation given iatrogenic aspiration risk
DNR/DNI status
Continue oxygen supplementation to keep SpO2 >90-94%
Prognosis is poor
Will not repeat ABG as there is no escalation of care and he is not a candidate for aggressive intervention at this point
-
Agree with antibiotics to cover for possible aspiration pneumonia
Currently Zosyn s/p IV vancomycin x 2 doses on 04/27 + 04/28
MRSA screen negative
Infectious disease following
Repeat CXR tomorrow AM
-
Leukocytosis now resolved
No longer febrile since admission on 04/27
-
Severe sepsis-blood pressure improved after IV fluids and is now stable
No vasopressor requirement.
Anion gap metabolic acidosis/respiratory acidosis: Lactic acidosis with poor compensation.
Resolved acidosis as of 04/28/2024.
Lactic acid now normalized as of 04/28/2024
Status post fluid resuscitation-now transition to hypotonic solution due to hyponatremia --> nephrology on board and recs appreciated
C/t trend sNa
Bicarbonate drip discontinued on 04/28/2024 --> c/t trend sHCO3
-
Not a candidate for noninvasive mechanical ventilation-poor mental status with high aspiration risk
would not want escalation of care, mechanical ventilation or CPR. DNR status. She would not want pressors either.
-
Hyperkalemia resolved
Hypernatremia noted-nephrology following -> on hypotonic IVF
Follow renal function, trending lower.
-
Atrial fibrillation status post cardioversion. Heart rate improved
Cardizem drip discontinued
Cardiology correspondence reviewed, anticoagulation continue for now
-
Troponin has peaked at 0.926 on admission; no longer need to continue trending
Echo performed 04/29/2024 showing normal biventricular size and function with LVEF 55-60% with small perimembranous VSD with left�to�right shunting and mildly elevated PASP (39 mmHg)
-
NPO while remains minimally response
Head of the bed elevation to avoid risk of aspiration
-
Dr. Escobar personally discussed with the power of temporary administrative assistant at the bedside, 04/27/2024. Patient has been losing weight & clinically deteriorating over the last few years - has lost about ~70 pounds. Now non-ambulatory. She would not want
intubation, CPR or escalation of care. Continue with antibiotics and IV fluids. Okay with labs. Prognosis is poor and she understands.
-
Patient is DNR/DNI status, not requiring vasopressors. He will not be intubated. Not a candidate for noninvasive mechanical ventilation.
No longer requiring continuous Cardizem drip.
Was transferred from ICU to IMU on 04/28/2024 - continue with IMU level of care. Goals of care discussion ongoing.
Pulmonary service will continue to briefly follow along
Total time spent today was 37 minutes for this encounter. Time includes reviewing laboratory test/imaging results, reviewing pertinent medical records, obtaining and reviewing medical history, performing an appropriate exam, ordering medications,
tests and procedures. Time also includes documentation of this encounter, coordinating patient care and communicating with other healthcare professionals. Total time does not include separately billed tests performed on this date of service.
Subjective Data
-
Date of Service:
Date of Service: April 29, 2024
Chief Complaint: Pulmonary Follow Up
Subjective:
Patient was seen and evaluated this morning. Currently saturating 100% on 9 L/min nasal cannula. Heart rate 79 and BP 113/71. On heparin drip. He groans when I interact with him but otherwise not opening eyes and not otherwise responding. He is
in no acute distress.
Review of Systems
General: Unobtainable - Pat Unresp
Objective Data
Data Reviewed
Vital Signs / I&O / Oxygen:
Vital Signs
Temp Pulse Resp BP Pulse Ox
97.9 F 82 32 109/80 95
04/29/24 08:00 11/11/24 06:00 04/29/24 06:00 04/29/24 06:00 04/29/24 07:16
Intake and Output
04/28/24 04/29/24 04/30/24
06:59 06:59 06:59
Intake Total 1778.0 / 1847.5 2501.5 / 2501.5
Output Total 900 / 900 1840 / 1840
Balance 878.0 / 947.5 661.5 / 661.5
SaO2 95
Nasal Cannula flow liters per 15
minute
Physical Exam
General: Respiratory Distress (negative), Comfortable, Chills (negative) and Sweats (negative)
HEENT: Normocephalic and Anicteric
Cardiovascular: S1-S2 and Peripheral Edema (negative)
Respiratory: Wheeze (negative), Crackles (negative), Rhonchi (negative), Non-Labored Respirations and Other (Diminished breath sounds bilaterally)
GI: Soft, Non Distended, Non Tender and Normal Bowel Sounds
Neurology: Unresponsive and Other (Pupils appear equal at 3 mm bilaterally, however patient is resisting me evaluating his pupils)
Skin: Warm and Dry
Labs/Micro/Reports
Lab Data
04/29/24 03:07
04/29/24 03:07
Laboratory Results
04/28/24 04/28/24 04/29/24
12:39 21:04 03:07
APTT 66.2 H 89.3 H 78.8 H
Microbiology
04/27/24 16:10 Blood/Venous Blood Culture - Preliminary
No Growth in 24 hours- Final report to follow
04/27/24 16:20 Blood/Venous Blood Culture - Preliminary
No Growth in 24 hours- Final report to follow
04/27/24 16:10 Nose Nasal Screen MRSA (PCR) - Final
MRSA not detected - performed by PCR methodology.
04/27/24 11:28 Blood/Venous Blood Culture - Preliminary
No Growth in 24 hours- Final report to follow
04/27/24 11:28 Blood/Venous Blood Culture - Preliminary
No Growth in 24 hours- Final report to follow
04/27/24 11:29 Nasal Swab Influenza Types A & B (CAREY) - Final
Negative for Influenza A & B, NAAT
Negative results must be combined with clinical observations
and patient history.
Nucleic Acid Amplification test (NAAT)performed on the
[employer] platform.
[2024-04-29] MEDS: SODIUM CHLORIDE 1009.625 MEQ IV ×2 (08:47→19:31)
--- NOTE | 2024-04-29 08:56 | W.PN.ID1 ---
Date of Service
Date of Service: April 29, 2024
Today's Communication
- c/w zosyn
Assessment / Plan
Suspected Aspiration Pneumonia
Fever
Altered Mental Status
Frontotemporal Dementia
SANDY - improved
Hypernatremia, Uremia
Cachexia
- blood cultures x2 in progress
- sputum if able to obtain one
- mrsa nasal screen negative
- added repeat CXR for the AM to reevaluate for developing infiltrates
- c/w zosyn at this time
- prognosis guarded
Chief Complaint
-: Fever, Pneumonia and Other (AMS)
Subjective / Review of Systems
no further fevers
bp remains stable
desating on 6L and now on midflow
ST consult: strict NPO with aspiration precautions
no events overnight
Vital Signs / Physical Exam
Vital Signs
Vital Signs
Temp Pulse Resp BP Pulse Ox
97.9 F 82 32 109/80 95
04/29/24 08:00 04/29/24 06:00 04/29/24 06:00 04/29/24 06:00 04/29/24 07:16
Physical Exam
Constitutional: Acutely Ill, Chronically Ill and Cachetic
Cardiovascular: Regular Rate and S1/S2; Negative Murmur or Rub
Pulmonary: Clear and Symmetric; Negative Wheezes or Rales
Gastrointestinal: Soft, Non Tender, Non Distended and Normal Bowel Sounds
Skin: Warm and Dry; Negative Rash or Jaundice
Neurological: Negative Awake
Objective Data
Lab Data
Lab Results
04/29/24 03:07
04/29/24 03:07
PT 16.2 Sec (11.4-14.6) H 04/28/24 06:02
INR 1.28 04/28/24 06:02
APTT 78.8 Sec (23.4-35.0) H 04/29/24 03:07
Estimated Creat Clear 33 ml/min 04/29/24 03:07
Lactic Acid 1.9 mmol/L (0.7-2.0) 04/28/24 12:39
Total Bilirubin 0.6 mg/dl (0.2-1.3) 04/28/24 03:28
AST 28 U/L (17-59) 04/28/24 03:28
ALT 42 U/L (0-50) 04/28/24 03:28
Alkaline Phosphatase 64 U/L (38-126) 04/28/24 03:28
Most recent labs reviewed.
Micro Results:
04/27/24 16:10 Blood Culture - Preliminary
Blood/Venous No Growth in 24 hours- Final report to follow
04/27/24 16:20 Blood Culture - Preliminary
Blood/Venous No Growth in 24 hours- Final report to follow
04/27/24 16:10 Nasal Screen MRSA (PCR) - Final
Nose MRSA not detected - performed by PCR methodology.
04/27/24 11:28 Blood Culture - Preliminary
Blood/Venous No Growth in 24 hours- Final report to follow
04/27/24 11:28 Blood Culture - Preliminary
Blood/Venous No Growth in 24 hours- Final report to follow
04/27/24 11:29 Influenza Types A & B (CAREY) - Final
Nasal Swab Negative for Influenza A & B, NAAT
Negative results must be combined with clinical observations
and patient history.
Nucleic Acid Amplification test (NAAT)performed on the
[employer] platform.
--- NOTE | 2024-04-29 09:15 | PTOTSP ---
Speech Language Pathology
Pt seen for clinical bedside swallow evaluation. P.O. trial of 2ccs of thin liquids via pipetted straw provided. Swallow initiated with immediate weak coughing. Provided tsp of mildly thick liquids and then straw sip. After straw sip, multiple
swallows per bolus noted with delayed weak coughing episode. Further P.O. trials deferred. Pt is at a high risk for aspiration given lethargy, mentation, and baseline modified diet.
Recommend:
(1) Strict NPO
(2) Oral care 4x/day with suctioning as needed
(3) Non-oral meds
(4) Not appropriate for Aspiration Risk Hydration Protocol (ARHP)
(5) CHIEF SALES OFFICER to continue to follow
--- NOTE | 2024-04-29 09:35 | W.PN.NEPH.PH ---
Today's Communication / Plan
-
IVF
Assessment/Plan
-
Impression:
Sepsis: suspected LLL PNA
Atrial fibrillation status post cardioversion with hemodynamic instability (likely secondary to sepsis)
Change of mental status obtunded/found down in retirement
Acute kidney injury with creatinine of 3.2
Lactic metabolic acidosis
Hyperkalemia
Hypernatremia
Diabetes
BPH
Frontal temporal dementia
Positive troponin
Plan:
follow BMP
continue hypotonic IVF
will need to determine whether this is his baseline
if it is, he would be a candidate for hospice. otherwise he will need PEG
-
-
Date of Service: April 29, 2024
CC / HPI / ROS
-
Chief Complaint:
Acute kidney injury
History of Present Illness:
SANDY/Cr down to 1.6
Na down to 151 with hypotonic IVF
Metabolic acidosis improved
Remains in normal sinus rhythm off Cardizem drip
Hemodynamically labile
failed swallow study
Review of Systems:
Patient mental status a little bit more interactive today, nonverbal
Nonoliguric via condom catheter
Labs
-
Labs:
WBC 4.8 10^3/uL (4.8-10.8) 04/29/24 03:07
RBC 4.31 10^6/uL (4.70-6.10) L 04/29/24 03:07
Hgb 12.6 g/dL (13.0-18.0) L 04/29/24 03:07
Hct 36.8 % (39.0-52.0) L 04/29/24 03:07
Plt Count 172 10^3/uL (130-400) D 04/29/24 03:07
Sodium 151 mmol/L (135-145) H 04/29/24 03:07
Potassium 4.2 mmol/L (3.5-5.1) 04/29/24 03:07
Chloride 110 mmol/L (98-107) H 04/29/24 03:07
Carbon Dioxide 32 mmol/L (22-30) H 04/29/24 03:07
BUN 83 mg/dl (9-20) H 04/29/24 03:07
Creatinine 1.6 mg/dL (0.7-1.3) H 04/29/24 03:07
eGFR 49.02 04/29/24 03:07
Glucose 176 mg/dl (70-99) H 04/29/24 03:07
Calcium 8.5 mg/dl (8.4-10.2) 04/29/24 03:07
Phosphorus 7.9 mg/dl (2.5-4.5) H 04/27/24 21:13
Abw-M-Uoldawbapnz Pept 4330 pg/ml 04/27/24 11:28
Albumin 2.8 g/dl (3.5-5.0) L 04/28/24 03:28
Physical Exam
-
Vital Signs:
Vital Signs
Temp Pulse Resp BP Pulse Ox
97.9 F 82 32 109/80 95
04/29/24 08:00 04/29/24 06:00 04/29/24 06:00 04/29/24 06:00 04/29/24 07:16
Cardiovascular:: Regular rate and rhythm
Respiratory:: Bilateral: Coarse
Lung Excursion:: Normal
Abdomen:: Nontender and Soft
Bowel Sounds:: Normal
Extremity Edema:: None: Bilateral:
--- NOTE | 2024-04-29 09:39 | W.PN.HOSP.TC ---
Today's Communication/Plan
-
ID, cardiology, nephrology following; appreciate recs. GOC discussion with family/POA. Repeat chest xray tomorrow.
Assessment / Plan
Assessment / Plan
59yo M with PMH frontotemporal dementia (with aggressive behavioral dysfunction), HTN, DM on insulin, h/o mood disorder, who presented to ED 04/27/24 for altered mental status and tachycardia. At baseline, patient is apparently combative and
yelling, resides at nursing facility for dementia. Prior to arriving at hospital, patient was nonverbal.
Toxic metabolic encephalitis
Obtunded on hospital admission
- Likely multifactorial in nature- sepsis, hypernatremia, seizure may be contributing- see below for individual plans
- Head CT 04/27 negative for acute intracranial stroke, hemorrhage, mass
- NPO, aspiration requirements
- Hold on dobhoff tube until able to discuss with family. If agreeable, will plan to place dobhoff today.
Sepsis present on admission secondary to pneumonia
LLL pneumonia, suspected secondary to aspiration
Acute hypoxic respiratory failure, respiratory acidosis
High anion gap metabolic acidosis, secondary to lactic acidosis
- Chest xray 04/27 showed possible L pneumonia, atelectasis, or pleural effusion
- Febrile on admission 101.5 rectally (04/27 @ 11:30)
- Lactic acid peaked at 8.3, trended down to 1.9
- Blood cultures 04/27: NG 24 h, final results pending
- Required nonrebreather in ED, was on RA --> now on 15L midflow
- ID consulted, appreciate recs. Continue antibiotics per ID.
- Toy Consultant consulted, appreciate recs. Downgraded to IMU, pulmonary following
- Repeat chest xray tomorrow
Severe hypernatremia
Acute kidney injury
- Estimated FWD approximately 3.5 on admission
- Cr. 3.2 on admission, unknown baseline --> 1.6 this AM. eCrCl 33.
- Nephrology consulted, appreciate recs.
- Continue IVF per nephrology
Chronic afib, not on anticoagulation prior to admission
- S/p cardioversion in ED 04/27/24
- S/p diltiazem gtt --> discontinued due to hypotension- family does not want pressors
- Now NSR, continue to monitor
- Cardiology consulted, appreciate recs. Rec systemic anticoagulation for 1 month and continuing if tolerated. Patient poor candidate for snf anticoagulation, will discuss with family.
Elevated troponin, likely nonischemic myocardial injury secondary to sepsis
- Troponin 0.926 on admission --> downtrended to 0.415
- Downtrended appropriately, no further intervention at this time
Elevated pro BNP, likely secondary to afib with RVR vs chronic diastolic dysfunction
- ProBNP 4330 on admission
Diabetes mellitus
- Insulin sliding scale
H/o mood disorder
Possible seizure disorder
- Home meds held due to NPO: valproate 500mg BID, lorazepam 0.5mg qHS, loxapine 25mg qD and 50mg qHS
- Continue IV valproic acid 250mg q6h and IV lorazepam 0.25mg qHS while NPO
H/o BPH
- Hold home flomax given NPO
H/o frontotemporal dementia and behavioral issues at baseline
Severe protein calorie malnutrition
Sacral deep tissue injury- continue wound care
Code status: DNR, DNI
Per prior documentation 04/27: POA does not want escalation of care. Understanding of poor prognosis. Continue IV antibiotics and labs.
Will contact POA for discussion of goals of care and ?NGT
VTE ppx: heparin
Diet: NPO per speech therapy
Dispo planning: TBD
Anticipated Discharge: > 48 hours
Subjective/Interval History
-
Date of Service: April 29, 2024
Overnight required increased supplemental oxygen, and had brief run of tachycardia which resolved without intervention. Discussed with nursing- patient able to open eyes, say name, denies pain. When I was in room, he mumbles in response to
verbal/physical stimuli, does not open eyes or answer questions.
Objective Data
-
Labs:
Laboratory Results
04/29/24
03:07
WBC 4.8
Hgb 12.6 L
Hct 36.8 L
Plt Count 172 D
APTT 78.8 H
Sodium 151 H
Potassium 4.2
Chloride 110 H
Carbon Dioxide 32 H
BUN 83 H
Creatinine 1.6 H
Glucose 176 H
Calcium 8.5
04/27/24 16:10 Blood/Venous Blood Culture - Preliminary
No Growth in 24 hours- Final report to follow
04/27/24 16:20 Blood/Venous Blood Culture - Preliminary
No Growth in 24 hours- Final report to follow
04/27/24 16:10 Nose Nasal Screen MRSA (PCR) - Final
MRSA not detected - performed by PCR methodology.
04/27/24 11:28 Blood/Venous Blood Culture - Preliminary
No Growth in 24 hours- Final report to follow
04/27/24 11:28 Blood/Venous Blood Culture - Preliminary
No Growth in 24 hours- Final report to follow
04/27/24 11:29 Nasal Swab Influenza Types A & B (CAREY) - Final
Negative for Influenza A & B, NAAT
Negative results must be combined with clinical observations
and patient history.
Nucleic Acid Amplification test (NAAT)performed on the
[email or web address] platform.
Vital Signs:
Vital Signs
Temp Pulse Resp BP Pulse Ox
97.9 F 82 32 109/80 95
04/29/24 08:00 04/29/24 06:00 04/29/24 06:00 04/29/24 06:00 04/29/24 07:16
I&O
04/28/24 04/29/24 04/30/24
06:59 06:59 06:59
Intake Total 1778.0 / 1847.5 2501.5 / 2501.5
Output Total 900 / 900 1840 / 1840
Balance 878.0 / 947.5 661.5 / 661.5
Review of Systems
-
Unable to obtain full review of systems at this time due to: Dementia and Patient Non-verbal
Physical Exam
-
General: No Apparent Distress, Comfortable, Appears Chronically Ill and Cachectic
HEENT: Normocephalic, Atraumatic, Anicteric and Oxygen (15L midflow)
Respiratory: Clear to Auscultation (anterior lung brown) and Non Labored Respirations
Cardiac: Regular Rhythm and S1/S2
GI: Soft, Nontender, Nondistended and Normal Bowel Sounds
Musculoskeletal: No Edema
Skin: Warm and Dry
Neuro: Awake (mumbles in response to verbal/physical stimuli); Negative Alert or Oriented
Psych: Calm; Negative Intact Judgement/Insight
Data Reviewed
-
Diagnostic Radiology: Image personally visualized and interpreted and Report Reviewed by me
CT Scan: Image personally visualized and interpreted and Report Reviewed by me
Labs: Labs Reviewed by me and Discussed with Physician
Old Records: Requested
--- NOTE | 2024-04-29 11:24 | W.PN.CD ---
Today's Communication / Plan
-
Start low-dose metoprolol for RVR
Continue heparin drip until SADNY resolves, then can switch to DOAC
Impression / Plan
-
59-year-old with history of frontotemporal dementia, Hypertension, hyperlipidemia, diabetes. He was transferred from [facility] with a decline in functional status and being obtunded. He was found to be in rapid atrial fibrillation and
he was emergently cardioverted in the emergency room to sinus tachycardia. He is being treated for sepsis with severe dehydration.
AFib with RVR, 200 bpm, sinus tach after cardioversion
- S/p emergent cardioversion in ER
- Afib likely from acute medical illness
- [id number] seems to be 1 for hx HTN
- 30 days of Eliquis or some full dose anticoagulation is appropriate
- Continue heparin due to SANDY. Will consult case management for cost of DOAC's
- Start low-dose metoprolol for RVR
Abnormal troponin => nonischemic myocardial injury related to sepsis
- Peak troponin was first trop 0.9
- No role for stress testing. He is not a candidate for the lab animal technologist given his DNR status and advanced dementia
Suspected sepsis
- CXR supports LLL pneumonia
- Treatment per primary team
Mixed hyperlipidemia
- Resume outpatient Atorvastatin
DVT ppx
- on ASA as outpatient
- hold ASA due to systemic AC
Altered mental status
Dementia, fronto-temporal
SANDY, improving
Lactic acidosis, resolved
Hypernatremia
DM
Subjective/Interval Hx:
Improving overall, no more AFib seen
Physical Exam
Vital Signs/Labs
Vital Signs
Temp Pulse Resp BP Pulse Ox
97.9 F 82 32 109/80 95
04/29/24 11:19 04/29/24 06:00 04/29/24 06:00 04/29/24 06:00 04/29/24 07:16
04/28/24 04/29/24 04/30/24
06:59 06:59 06:59
Actual Weight 47.2 kg 47.8 kg
04/29/24 03:07
04/29/24 03:07
PT 16.2 Sec (11.4-14.6) H 04/28/24 06:02
INR 1.28 04/28/24 06:02
APTT 78.8 Sec (23.4-35.0) H 04/29/24 03:07
Magnesium 2.2 mg/dl (1.6-2.3) 04/27/24 21:13
04/27/24
:28
Gtu-Y-Unnydvfscwl Pept 4330
LAB Results
04/27/24 04/27/24 04/27/24
16:20 21:00
Troponin I 0.926 H* 0.859 H* Cancelled
04/27/24 04/28/24
23:20 07:45
Troponin I 0.472 H* D 0.415 H*
Physical Exam
Constitutional: No acute distress and Comfortable
Cardiovascular: Rhythm & rate is regular, Pedal edema is absent, JVD pressure is normal, S1S2 is normal and Murmur/rub/gallop absent
Respiratory: Respiratory effort normal
Data Reviewed
-
Date of Service: April 29, 2024
Medical Decision Making: Reviewed Test Results, Independent Historian Assessment, Test Interpretation and Review of Case with other Provider
EKG: Tracing Personally Visualized and interpreted
Echo: Ordered by me
X-Ray/CT/US/MRI/NUC/PET: Report Reviewed by me
Labs: Labs Reviewed by me
[2024-04-29 11:56] LABS: Glucose - Point of Care 165 mg/dl (70-99)
--- NOTE | 2024-04-29 12:25 | WOUNDNOTE ---
SACRAL/COCCYX/BUTTOCKS
--- NOTE | 2024-04-29 12:25 | WOUNDNOTE ---
SACRAL/COCCYX/L BUTTOCKS
--- NOTE | 2024-04-29 12:30 | WOUNDNOTE ---
[facility] RN note: Patient admitted with TME, sepsis, SANDY, hypernatremia, respiratory failure. Patient admitted from SNF.
See H&P for complete history.
PMH: [facility] from November to March, acute behavioral dysfunction, pneumonia, BPH, frontal temporal dementia.
Wound Location and type/assessment: Patient admitted with: Sacral/coccyx/L buttocks DTI, deep dermal stage 2 scrotal pressure injury, stage 2 L jaw and L collar bone pressure injury, R medial heel stage 2 blister, R posterior heel DTI, R salazar stage
2 pressure injury vs abrasion, L lateral ankle stage 1 pressure injury, L shoulder abrasion and skin lesion/mole.
Appetite: NPO.
Pressure redistribution devices in place: Centrella Max air bed. Patient immobile.
Plan: Silicone foam maintained on sacral/coccyx. Barrier ointment applied to scrotum. Heel foam dressings changed. Protective silicone foam applied to L shoulder. Heels off bed with pillow. Patient turned to R semi side lying position with help from
GREGORY Bateman. Patient at risk for worsening and additional pressure injuries d/t overall medical condition.
Updated and confirmed orders with Dr. Kathrine Sanches and updated RN Jens. Hospitalist service planning to discuss goals with .
Care plan to be updated and will follow as needed.
Note to case management of equipment requested for discharge: Air mattress if not already in place at SNF.
--- NOTE | 2024-04-29 12:31 | PTCARENOTE ---
Plan discussed with care team, MD will discuss GOC with family as appropriate. Pt less responsive at 12:00 assessment. WOC RN dressed all wounds. Pt again failing speech evaluation this am, remains NPO. 02 weaned to 9L midflow, sa02 remains stable
in high 90s, see flowsheet. Safe environment maintained.
--- NOTE | 2024-04-29 12:32 | WOUNDNOTE ---
[facility] RN note: Patient admitted with TME, sepsis, SANDY, hypernatremia, respiratory failure. Patient admitted from SNF.
See H&P for complete history.
PMH: [facility] from November to March, acute behavioral dysfunction, pneumonia, BPH, frontal temporal dementia.
Wound Location and type/assessment: Patient admitted with: Sacral/coccyx/L buttocks DTI, deep dermal stage 2 scrotal pressure injury, stage 2 L jaw and L collar bone pressure injury, R medial heel stage 2 blister, R posterior heel DTI, R salazar stage
2 pressure injury vs abrasion, R medial ankle stage 1 pressure injury, L shoulder abrasion and skin lesion/mole.
Appetite: NPO.
Pressure redistribution devices in place: Centrella Max air bed. Patient immobile.
Plan: Silicone foam maintained on sacral/coccyx. Barrier ointment applied to scrotum. Heel foam dressings changed. Protective silicone foam applied to L shoulder. Heels off bed with pillow. Patient turned to R semi side lying position with help from
GREGORY Bateman. Patient at risk for worsening and additional pressure injuries d/t overall medical condition.
Updated and confirmed orders with Dr. Kathrine Mejias and updated RN Jens. Hospitalist service planning to discuss goals with .
Care plan to be updated and will follow as needed.
Note to case management of equipment requested for discharge: Air mattress if not already in place at SNF.
--- NOTE | 2024-04-29 13:31 | CM ---
CM following re: discharge planning.
Reviewed pt's chart, met with pt.
CM consult to check the jimenez of DOAC noted. CM spoke to [facility] tour director and Apixaban type of DOAC requested and they will cover the cost. is aware.
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 Pt is on Medicaid 15 day bed hold.
D/C plan: return back to [facility] for a fdc care.
CM will follow to assist pt with returning back to [facility] for a fdc care.
[2024-04-29 17:23] LABS: Glucose - Point of Care 180 mg/dl (70-99)
[2024-04-29] MEDS: HEPARIN 25000 UNITS/250 ML IV (17:27)
[2024-04-29] MEDS: NOVOLOG FLEXPEN-LOW RESISTANCE 300 UNITS SC (17:43)
--- NOTE | 2024-04-29 17:46 | PTCARENOTE ---
Pt was weaned this afternoon to 4L, sa02 93%. Pt with occ weak no productive cough. Remains drowsy but arousable, will say a few words very softly when prompted, speech not always intelligible. Pt maintained on Q2T schedule, 2 large soft modi BMs
today. All other assessments unchanged. Safe environment maintained.
called to followup on missed call from hospitalist this am, advertising space clerk fwd message to resident and attending.
--- NOTE | 2024-04-29 17:54 | W.PN.UPDATE ---
Update Note
Progress Note Update
Spoke with patient's Rose Marie on phone to provide updates and discuss goals of care. She says he used to enjoy drawing and was very good at it, but after a head injury she noticed more memory problems and cursing. More recently, he has been
'declining and declining and declining.' His recent baseline at usp was requiring a 1:1 supervision to help feed himself and because he cannot ask for help or click the call button. Since he was brought to the hospital, she knows his
prognosis is poor. She is interested in comfort-oriented care and hospice. She says she is 'praying for him to come back here' to a usp closer to her in [place] (she says she would be okay with a facility near [facility], or
[place]). Her goal is to move him closer to home 'so family could see him and say goodbyes.' She will be visiting [place]in in the hospital tomorrow, and would like to talk to CM and bindery assistant to discuss possible arrangements.
Plan
- CM consult, bindery assistant
- possible discharge to hospice
- Rose Marie's goal is to move patient closer to [facility] to be near her and family
--- NOTE | 2024-04-29 18:10 | PTCARENOTE ---
Addendum entered by Jens Valencia RN 04/29/24 18:19:
Resident Dr. Sanches and Pulm Dr. Fuentes notified via TT.
Original Note:
Pt desaturating and tachypneic, sa02 dipping to 87% on 4L. 02 titrated up to 15L midflow at this time, sa02 90%.
[2024-04-29] MEDS: ATIVAN 0.25 MG IV (20:44)
[2024-04-29] MEDS: NSS (PRESERVATIVE FREE) 0.125 ML IV (20:45)
[2024-04-29 23:12] LABS: Glucose - Point of Care 189 mg/dl (70-99)
[2024-04-30] VITALS (27 sets, daily range): BP systolic 92–143; BP diastolic 69–96; BMI 16.2
--- NOTE | 2024-04-30 05:00 | PTCARENOTE ---
AM labs sent. pt repositioned frequently. CHG bath, oral care provided. remains on 15L midflow. IVF and heparin gtts continue. care ongoing.
[2024-04-30] MEDS: ZOSYN 50 IV ×3 (05:07→19:01)
[2024-04-30] MEDS: DEPACON 52.5 MG IV ×3 (05:07→17:51)
[2024-04-30 05:34] LABS: Hematocrit 38.9 % (39.0-52.0); Hemoglobin 13.3 g/dL (13.0-18.0); Mean Corp Hgb Conc. 34.2 g/dL (33.0-37.0); Mean Corpuscular Hgb 29.2 pg (27.0-31.0); Mean Corpuscular Volume 85.3 fL (80.0-94.0); Mean Platelet Volume 9.7 fL (7.4-10.4); Platelet Count 151 10^3/uL (130-400); Red Blood Cell Count 4.56 10^6/uL (4.70-6.10); Red Cell Dist. Width 12.4 % (11.5-14.5); White Blood Cell Count 5.2 10^3/uL (4.8-10.8)
[2024-04-30 05:43] LABS: APTT 80.5 Sec (23.4-35.0)
[2024-04-30 05:56] LABS: Blood Urea Nitrogen 56 mg/dl (9-20); Calcium 8.6 mg/dl (8.4-10.2); Carbon Dioxide 30 mmol/L (22-30); Chloride 107 mmol/L (98-107); Estimated Creatinine Clearance 46 ml/min; Glucose 213 mg/dl (70-99); Potassium 4.2 mmol/L (3.5-5.1); Sodium 144 mmol/L (135-145); eGFR > 60.00
[2024-04-30] MEDS: NOVOLOG FLEXPEN-LOW RESISTANCE 2 UNITS SC (05:59)
--- NOTE | 2024-04-30 07:24 | W.PN.HOSP.TC ---
Today's Communication/Plan
-
continue antibiotics, repeat chest xray
Goals of care discussion ongoing:
- Updated Rose Marie on phone 04/29/24- she is considering transition to hospice.
- CM consulted, clinical rn liaison.
- Rose Marie will be in hospital today- will return to discuss at bedside.
Assessment / Plan
Assessment / Plan
59yo M with H frontotemporal dementia (with aggressive behavioral dysfunction), HTN, DM on insulin, h/o mood disorder, who presented to ED 04/27/24 for altered mental status and tachycardia. At baseline, patient is apparently combative and
yelling, resides at nursing facility for dementia. Prior to arriving at hospital, patient was nonverbal.
Toxic metabolic encephalitis
Obtunded on hospital admission
- Likely multifactorial in nature- sepsis, hypernatremia, seizure may be contributing- see below for individual plans
- Head CT 04/27 negative for acute intracranial stroke, hemorrhage, mass
- NPO, aspiration requirements
- Hold on dobhoff tube until family reaches decision regarding hospice.
Sepsis present on admission secondary to pneumonia
LLL pneumonia, suspected secondary to aspiration
Acute hypoxic respiratory failure, respiratory acidosis
High anion gap metabolic acidosis, secondary to lactic acidosis
- Chest xray 04/27 showed possible L pneumonia, atelectasis, or pleural effusion
- Febrile on admission 101.5 rectally (04/27 @ 11:30)
- Lactic acid peaked at 8.3, trended down to 1.9
- Blood cultures 04/27: NG at 48h, final results pending
- Required nonrebreather in ED, was on RA --> now on 12L
- ID consulted, appreciate recs. Continue antibiotics per ID.
- Chief Data Officer consulted, appreciate recs. Downgraded to IMU, pulmonary following.
- Repeated chest xray this AM- report pending
Electrolyte abnormalities
- Hypernatremia, improving on hypotonic IVF
- Hyperkalemia, resolved
Acute kidney injury
- Cr. 3.2 on admission, unknown baseline --> 1.2 this AM. eCrCl 46.
- Nephrology consulted, appreciate recs.
- Continue IVF per nephrology
Afib with RVR
- Not on anticoagulation prior to admission.
- S/p cardioversion in ED 04/27/24
- S/p diltiazem gtt --> discontinued due to hypotension- family does not want pressors
- Cardiology consulted, appreciate recs. Rec systemic anticoagulation for 1 month and continuing if tolerated. Patient poor candidate for assisted anticoagulation, will discuss with family.
- Started low dose metoprolol for RVR
- Continue heparin drip
Elevated troponin, likely nonischemic myocardial injury secondary to sepsis
- Troponin 0.926 on admission --> downtrended to 0.415
- Downtrended appropriately, no further intervention at this time
Elevated pro BNP, likely secondary to afib with RVR vs chronic diastolic dysfunction
- ProBNP 4330 on admission
H/o mood disorder
Possible seizure disorder
- Home meds held due to NPO: valproate 500mg BID, lorazepam 0.5mg qHS, loxapine 25mg qD and 50mg qHS
- Continue IV valproic acid 250mg q6h and IV lorazepam 0.25mg qHS while NPO
Diabetes mellitus- Insulin sliding scale
H/o BPH- Hold home flomax given NPO
H/o frontotemporal dementia and behavioral issues at baseline
Severe protein calorie malnutrition
Sacral deep tissue injury- continue wound care
Hyperlipidemia- Home atorvastatin held given NPO
Code status: DNR, DNI
Per prior documentation 04/27: POA does not want escalation of care. Understanding of poor prognosis. Continue IV antibiotics and labs.
VTE ppx: heparin
Diet: NPO per speech therapy
Dispo planning: TBD
Anticipated Discharge: > 48 hours
Subjective/Interval History
-
Date of Service: April 30, 2024
Overnight required 12L supplemental O2. Mumbles in response to verbal/physical stimuli, does not open eyes or answer questions.
Objective Data
-
Labs:
Laboratory Results
04/30/24
05:02
WBC 5.2
Hgb 13.3
Hct 38.9 L
Plt Count 151
APTT 80.5 H
Sodium 144
Potassium 4.2
Chloride 107
Carbon Dioxide 30
BUN 56 H
Creatinine 1.2
Glucose 213 H
Calcium 8.6
04/27/24 16:20 Blood/Venous Blood Culture - Preliminary
No Growth in 48 hours- Final report to follow
04/27/24 16:10 Blood/Venous Blood Culture - Preliminary
No Growth in 48 hours- Final report to follow
04/27/24 11:28 Blood/Venous Blood Culture - Preliminary
No Growth in 48 hours- Final report to follow
04/27/24 11:28 Blood/Venous Blood Culture - Preliminary
No Growth in 48 hours- Final report to follow
04/27/24 16:10 Nose Nasal Screen MRSA (PCR) - Final
MRSA not detected - performed by PCR methodology.
04/27/24 11:29 Nasal Swab Influenza Types A & B (CAREY) - Final
Negative for Influenza A & B, NAAT
Negative results must be combined with clinical observations
and patient history.
Nucleic Acid Amplification test (NAAT)performed on the
[employer] platform.
Vital Signs:
Vital Signs
Temp Pulse Resp BP Pulse Ox
98.9 F 81 26 113/70 99
04/30/24 04:34 04/30/24 06:00 04/30/24 06:00 04/30/24 06:00 04/30/24 06:32
I&O
04/29/24 04/30/24 05/01/24
06:59 06:59 06:59
Intake Total 2501.5 / 2501.5 2776.5 / 2776.5
Output Total 1839 / 1841949 / 1949
Balance 661.5 / 661.5 826.5 / 826.5
Review of Systems
-
Unable to obtain full review of systems at this time due to: Dementia and Patient Non-verbal
Physical Exam
-
General: No Apparent Distress, Comfortable, Appears Chronically Ill and Cachectic
HEENT: Normocephalic, Atraumatic, Anicteric and Oxygen (12L)
Respiratory: Clear to Auscultation (anterior lung brown) and Non Labored Respirations
Cardiac: Regular Rhythm, S1/S2 and Murmur (systolic murmur LLSB)
GI: Soft, Nontender, Nondistended and Normal Bowel Sounds
Musculoskeletal: No Edema
Skin: Warm and Dry
Neuro: Awake (mumbles in response to verbal/physical stimuli); Negative Alert or Oriented
Psych: Calm; Negative Intact Judgement/Insight
Data Reviewed
-
Diagnostic Radiology: Image personally visualized and interpreted and Report Reviewed by me
CT Scan: Image personally visualized and interpreted and Report Reviewed by me
Medical Tests (Nuc Med, Echo etc): Report Reviewed by me
Labs: Labs Reviewed by me and Discussed with Physician
Old Records: Requested and Reviewed
[2024-04-30] MEDS: NSS (PRESERVATIVE FREE) 10 ML IV (07:36)
--- NOTE | 2024-04-30 07:37 | PTCARENOTE ---
Pt rec'd from shift mgr, drowsy, lethargic but opens eyes spont, minimally conversant, answered 'I'm ok ' when asked if he had pain. Could not state name or . Wiggling left foot independently. SR in 70s on tele, BP stable, 98% on 8 L midflow,
lungs very coarse t/o, weak moist non pro cough noted. NPO due to lethargy and aspiration risk per speech, incont large modi BM this am. Turned and repostioned, oral and pericare provided. CC 25 draining clear yellow urine. Meds and assessment as
documented - see flowsheet. Plan discussed with resident Dr. Sanches. Safe environment maintained.
[2024-04-30] MEDS: PROTONIX IV 40 MG IV (07:59)
--- NOTE | 2024-04-30 08:07 | W.PN.UPDATE ---
Addendum entered and electronically signed by Osvaldo Schumacher MD 04/30/24 11:38:
all POA:
- Stage 2 scrotum pressure injury
- Stage 2 left jaw and left collar bone pressure injury
- Stage 2 right medial heel pressure injury
- DTI right posterior heel
- Stage 2 right salazar pressure injury
- Stage 1 left lateral ankle pressure injury
Addendum entered and electronically signed by Osvaldo Schumacher MD 04/30/24 10:41:
Correction: Acute hypoxemic respiratory failure
Original Note:
Update Note
Progress Note Update
I saw and evaluated the patient independently. I reviewed the resident�s note and agree with findings and plan as documented by Dr. Sanches.
Gen: NAD, NCAT
CV: RRR, +S1/S2, 2/6 systolic murmur
Resp: CTAB, no rales, wheezes, or rhonchi.
Abd: +BS, soft, NT, ND
Skin: No rashes.
Neuro: mumbles and moves head to shoulder shake
Psych: calm
04/27/24 16:20 Blood/Venous Blood Culture - Preliminary
No Growth in 48 hours- Final report to follow
04/27/24 16:10 Blood/Venous Blood Culture - Preliminary
No Growth in 48 hours- Final report to follow
04/27/24 11:28 Blood/Venous Blood Culture - Preliminary
No Growth in 48 hours- Final report to follow
04/27/24 11:28 Blood/Venous Blood Culture - Preliminary
No Growth in 48 hours- Final report to follow
04/27/24 16:10 Nose Nasal Screen MRSA (PCR) - Final
MRSA not detected - performed by PCR methodology.
04/27/24 11:29 Nasal Swab Influenza Types A & B (CAREY) - Final
Negative for Influenza A & B, NAAT
Negative results must be combined with clinical observations
and patient history.
Nucleic Acid Amplification test (NAAT)performed on the
[employer] platform.
CT brain: No acute intracranial abnormality.
CXR: Left hemidiaphragm somewhat obscured suggesting opacification such as subsegmental atelectasis and/or pneumonia and possible small left pleural effusion.
Sepsis, POA:
-With acute hypoxemic respiratory insufficiency, SANDY, and mixed acid-base disorder (AG met acidosis, respiratory acidoses, and contraction alkalosis)
-Likely due to aspiration pneumonitis
-was on empiric Vanco/Zosyn. Vanco stopped with NEG MRSA screen on 04/29/24.
-BCxs NGTD
-Flu/COVID NEG
-leukocytosis, POA, resolved (was likely reactive)
-currently no evidence of bacterial infection. Stop Zosyn.
-was on IVFs with bicarb, lactic acidosis and SANDY now resolved
Acute metabolic encephalopathy:
-likely multifactorial (hypernatremia, sepsis, CVA, seizure)
-h/o frontotemporal dementia x 7 years, family wants minimal intervention
Electrolyte abnormalities:
-Hypernatremia, resolved with hypotonic IVF
-Hyperkalemia, resolved
New onset afib with RVR:
-elevated trop is acute nonischemic myocardial injury due to afib with RVR
-cardiology following
-was on cardizem gtt, now converted back to NSR
-family does not want AC extermination supervisor, currently on heparin gtt
-Echo: EF 55-60%. Normal RV size and function.
-cont BB
Other problems:
DM2: SSI/accuchecks
Severe protein calorie malnutrition
h/o Mood disorder with aggressive behaviors: cont Depakote
BPH: holding flomax
DNR/DNI
heparin gtt
Dispo: Likely d/c to hospice today.
--- NOTE | 2024-04-30 08:22 | W.PN.PUL3 ---
Today's Communication / Plan
-
Aspiration precautions
HOB >30-45�
Abx as per ID
Follow up chest US --> IR consult for thora; may need chest tube if empyema if in line with patient's GOC
prn DuoNebs
Heparin gtt changed to therapeutic LMWH given A-fib (although now in NSR) - eventual NOAC (will need G tube first vs temporary DHT)
Can stop hypotonic IVF - defer to nephro; trend sNa
Guarded prognosis - seems appropriate for comfort care/hospice - family meeting held today, and they want to continue full medical treatment for now
Pulmonary service will continue to briefly follow along
Assessment
-
59-year-old man with frontotemporal dementia. Found down at the detention. It was brought into the hospital for further evaluation. Found to be in rapid atrial fibrillation requiring emergent cardioversion in the emergency room. Found to have
profound metabolic acidosis, hypernatremia with dehydration hypoxemia and possible aspiration
Impression:
Acute hypoxemic respiratory failure likely due to aspiration pneumonia/pneumonitis
Toxic metabolic encephalopathy-possible history of seizures-patient was found down at the detention
Severe Sepsis: Possibly pneumonia--Cannot rule out aspiration; with worsening left-sided pleural effusion that appears loculated, there is concern for empyema
Acute HFpEF (proBNP elevated)
Rapid atrial fibrillation now in NSR
Lactic acidosis � now resolved
Troponin increased- likely nonischemic myocardial injury secondary to sepsis with demand ischemia/type II MA (troponin peaked at 0.926 on 04/27/2024)
Anion gap metabolic acidosis - resolved
Acute kidney injury - improving
Hyperkalemia - resolved
Hypernatremia-volume depletion - Na now resolved
Conditions present prior admission:
Frontotemporal dementia with aggressive behavior
Insulin-dependent diabetes
History of mood disorder on Depakote
BPH
Malnutrition-cachectic
Prolonged admission at [facility] March 2024-unclear details
Assessment and plan:
Patient remains minimally responsive although hemodynamically stable, with stable hypoxia on midflow nasal cannula
CT head negative
Minimal coughing
-
Hypoxic acute respiratory failure: Chest x-ray showed left lower lobe possible infiltrate. Cannot rule out aspiration event versus atelectasis (no prior CXR to compare to)
ABG 7.-patient's mental status continues to be poor. He is obtunded - no evidence for hypercapnia to be cause of patient's AMS
Not a candidate for noninvasive mechanical ventilation given iatrogenic aspiration risk
DNR/DNI status
Continue oxygen supplementation to keep SpO2 >90-94%
Prognosis is poor
Will not repeat ABG as there is no escalation of care and he is not a candidate for aggressive intervention at this point
-
Agree with antibiotics to cover for possible aspiration pneumonia
Currently Zosyn s/p IV vancomycin x 2 doses on 04/27 + 04/28
MRSA screen negative
Infectious disease following
-
Leukocytosis remains normal - c/t trend
No longer febrile since admission on 04/27
-
Severe sepsis-blood pressure improved after IV fluids and is now stable
No vasopressor requirement.
Anion gap metabolic acidosis/respiratory acidosis: Lactic acidosis with poor compensation.
Resolved acidosis as of 04/28/2024.
Lactic acid now normalized as of 04/28/2024
Status post fluid resuscitation-now transition to hypotonic solution due to hyponatremia --> nephrology on board and recs appreciated
C/t trend sNa
Bicarbonate drip discontinued on 04/28/2024 --> c/t trend sHCO3
CXR this AM shows concern for L-sided loculated effusion --> chest US pending; if septations present then would c/s IR for thoracentesis and send for typical fluid studies, cultures + cytopathology
-
Not a candidate for noninvasive mechanical ventilation-poor mental status with high aspiration risk
would not want escalation of care, mechanical ventilation or CPR. DNR status. She would not want pressors either.
-
Hyperkalemia resolved
Hypernatremia noted-nephrology following -> on hypotonic IVF which can be stopped now given sNa is now normal - defer to nephrology
Trend sCr
-
Atrial fibrillation status post cardioversion. Heart rate stable
Cardizem drip discontinued
Cardiology correspondence reviewed, anticoagulation continue for now with therapeutic LMWH
-
Troponin has peaked at 0.926 on admission; no longer need to continue trending
Echo performed 04/29/2024 showing normal biventricular size and function with LVEF 55-60% with small perimembranous VSD with left�to�right shunting and mildly elevated PASP (39 mmHg)
-
NPO while remains minimally response
Head of the bed elevation to avoid risk of aspiration
Consult GI for PEG
-
Dr. Escobar personally discussed with the power of assistant county attorney at the bedside, 04/27/2024. Patient has been losing weight & clinically deteriorating over the last few years - has lost about ~70 pounds. Now non-ambulatory. She would not want
intubation, CPR or escalation of care. Continue with antibiotics and IV fluids. Okay with labs. Prognosis is poor and she understands.
-
Patient is DNR/DNI status, not requiring vasopressors. He will not be intubated. Not a candidate for noninvasive mechanical ventilation.
No longer requiring continuous Cardizem drip.
Was transferred from ICU to IMU on 04/28/2024 - continue with IMU level of care. Goals of care discussion ongoing - family discussion held today and although hospice was being considered, they want to continue with full medical management but
remain DNR/DNI; guarded prognosis
Pulmonary service will continue to follow along
Data:
CXR 04/30/2024:
Moderate loculated left pleural effusion. Progressed. Underlying mass and pneumonia not excluded
Total time spent today was 52 minutes for this encounter. Time includes reviewing laboratory test/imaging results, reviewing pertinent medical records, obtaining and reviewing medical history, performing an appropriate exam, ordering medications,
tests and procedures. Time also includes documentation of this encounter, coordinating patient care and communicating with other healthcare professionals. Total time does not include separately billed tests performed on this date of service.
Subjective Data
-
Date of Service:
Date of Service: April 30, 2024
Chief Complaint: Pulmonary Follow Up
Subjective:
Patient was seen this morning with multiple family members at bedside, including patient's , Rose Marie, as well as patient's mother and daughter. Patient remains minimally responsive. He is on mid flow nasal cannula at 8 L/min saturating 95%. He
is in no acute distress.
Review of Systems
General: Unobtainable - Pat Unresp
Objective Data
Data Reviewed
Vital Signs / I&O / Oxygen:
Vital Signs
Temp Pulse Resp BP Pulse Ox
98.9 F 80 31 114/79 96
04/30/24 04:34 04/30/24 07:00 04/30/24 07:00 04/30/24 07:00 04/30/24 07:00
Intake and Output
04/29/24 04/30/24 05/01/24
06:59 06:59 06:59
Intake Total 2501.5 / 2501.5 2776.5 / 2776.5
Output Total 1840 / 1840 1950 / 1950
Balance 661.5 / 661.5 826.5 / 826.5
SaO2 96
Nasal Cannula flow liters per 12
minute
Physical Exam
General: Respiratory Distress (negative), Comfortable, Chills (negative) and Sweats (negative)
HEENT: Normocephalic and Anicteric
Cardiovascular: S1-S2 and Peripheral Edema (negative)
Respiratory: Wheeze (negative), Crackles (left base), Rhonchi (negative), Non-Labored Respirations and Other (Diminished breath sounds bilaterally (L>R))
GI: Soft, Non Distended, Non Tender and Normal Bowel Sounds
Neurology: Unresponsive and Other (Pupils appear equal at 3 mm bilaterally, however patient is resisting me evaluating his pupils)
Skin: Warm and Dry
Labs/Micro/Reports
Lab Data
04/30/24 05:02
04/30/24 05:02
Laboratory Results
04/29/24 04/30/24
15:15 05:02
APTT 80.5 H
pH Cancelled
pCO2 Cancelled
pO2 Cancelled
HCO3 Cancelled
O2 Delivery Level Cancelled
Microbiology
04/27/24 16:20 Blood/Venous Blood Culture - Preliminary
No Growth in 48 hours- Final report to follow
04/27/24 16:10 Blood/Venous Blood Culture - Preliminary
No Growth in 48 hours- Final report to follow
04/27/24 11:28 Blood/Venous Blood Culture - Preliminary
No Growth in 48 hours- Final report to follow
04/27/24 11:28 Blood/Venous Blood Culture - Preliminary
No Growth in 48 hours- Final report to follow
04/27/24 16:10 Nose Nasal Screen MRSA (PCR) - Final
MRSA not detected - performed by PCR methodology.
04/27/24 11:29 Nasal Swab Influenza Types A & B (CAREY) - Final
Negative for Influenza A & B, NAAT
Negative results must be combined with clinical observations
and patient history.
Nucleic Acid Amplification test (NAAT)performed on the
[employer] ID NOW platform.
--- NOTE | 2024-04-30 08:48 | W.PN.NEPH.PH ---
Today's Communication / Plan
-
IVF
Assessment/Plan
-
Impression:
Sepsis: suspected LLL PNA
Atrial fibrillation status post cardioversion with hemodynamic instability (likely secondary to sepsis)
Change of mental status obtunded/found [facility]it[facility]
Acute kidney injury with creatinine of 3.2
Lactic metabolic acidosis
Hyperkalemia
Hypernatremia
Diabetes
BPH
Frontal temporal dementia
Positive troponin
Plan:
follow BMP
continue hypotonic IVF 1/2NS 60ml/hr
interested in hospice
-
-
Date of Service: April 30, 2024
CC / HPI / ROS
-
Chief Complaint:
Acute kidney injury
History of Present Illness:
SANDY/Cr down to 1.2
Na down to 144 with hypotonic IVF
Metabolic acidosis improved
Remains in normal sinus rhythm off Cardizem drip, but on heparin
Hemodynamically labile
failed swallow study
Review of Systems:
nonverbal/noncommunicative
Nonoliguric via condom catheter
Labs
-
Labs:
WBC 5.2 10^3/uL (4.8-10.8) 04/30/24 05:02
RBC 4.56 10^6/uL (4.70-6.10) L 04/30/24 05:02
Hgb 13.3 g/dL (13.0-18.0) 04/30/24 05:02
Hct 38.9 % (39.0-52.0) L 04/30/24 05:02
Plt Count 151 10^3/uL (130-400) 04/30/24 05:02
Sodium 144 mmol/L (135-145) 04/30/24 05:02
Potassium 4.2 mmol/L (3.5-5.1) 04/30/24 05:02
Chloride 107 mmol/L (98-107) 04/30/24 05:02
Carbon Dioxide 30 mmol/L (22-30) 04/30/24 05:02
BUN 56 mg/dl (9-20) H 04/30/24 05:02
Creatinine 1.2 mg/dL (0.7-1.3) 04/30/24 05:02
eGFR > 60.00 04/30/24 05:02
Glucose 213 mg/dl (70-99) H 04/30/24 05:02
Calcium 8.6 mg/dl (8.4-10.2) 04/30/24 05:02
Phosphorus 7.9 mg/dl (2.5-4.5) H 04/27/24 21:13
Oxq-D-Putvuttcwsk Pept 4330 pg/ml 04/27/24 11:28
Albumin 2.8 g/dl (3.5-5.0) L 04/28/24 03:28
Physical Exam
-
Vital Signs:
Vital Signs
Temp Pulse Resp BP Pulse Ox
98.9 F 80 31 114/79 96
04/30/24 04:34 04/30/24 07:00 04/30/24 07:00 04/30/24 07:00 04/30/24 07:00
Cardiovascular:: Regular rate and rhythm
Respiratory:: Bilateral: Coarse
Lung Excursion:: Normal
Abdomen:: Nontender and Soft
Bowel Sounds:: Normal
Extremity Edema:: None: Bilateral:
--- NOTE | 2024-04-30 08:51 | W.PN.ID1 ---
Date of Service
Date of Service: April 30, 2024
Today's Communication
- day 4 of zosyn adjusted dose for improving renal function
- if consistent with patients goals of care, could consider chest US and possible thoracentesis. Overall prognosis is grim; I would agree with transition to hospice, and at transition would stop antibiotics
Assessment / Plan
Suspected Aspiration Pneumonia
Fever
Altered Mental Status
Frontotemporal Dementia
SANDY - improved
Hypernatremia, Uremia
Cachexia
- blood cultures x2 in progress
- unable to obtain a sputum
- mrsa nasal screen negative
- day 4 of zosyn adjusted dose for improving renal function
- if consistent with patients goals of care, could consider chest US and possible thoracentesis. Overall prognosis is grim; I would agree with transition to hospice, and at transition would stop antibiotics
Chief Complaint
-: Pneumonia and Other (AMS)
Subjective / Review of Systems
remains afebrile
bp stable
now responding to some questions
large modi bm today
baseline is reqiring 1:1, cannot fees himself, ask for help or click call button
Vital Signs / Physical Exam
Vital Signs
Vital Signs
Temp Pulse Resp BP Pulse Ox
98.9 F 80 31 114/79 96
04/30/24 04:34 04/30/24 07:00 04/30/24 07:00 04/30/24 07:00 04/30/24 07:00
Physical Exam
Constitutional: No Acute Distress and Chronically Ill
Cardiovascular: Regular Rate and S1/S2; Negative Murmur or Rub
Pulmonary: Clear and Symmetric; Negative Wheezes or Rales
Gastrointestinal: Soft, Non Tender, Non Distended and Normal Bowel Sounds
Skin: Warm and Dry; Negative Rash or Jaundice
Objective Data
Lab Data
Lab Results
04/30/24 05:02
04/30/24 05:02
PT 16.2 Sec (11.4-14.6) H 04/28/24 06:02
INR 1.28 04/28/24 06:02
APTT 80.5 Sec (23.4-35.0) H 04/30/24 05:02
Estimated Creat Clear 46 ml/min 04/30/24 05:02
Lactic Acid 1.9 mmol/L (0.7-2.0) 04/28/24 12:39
Total Bilirubin 0.6 mg/dl (0.2-1.3) 04/28/24 03:28
AST 28 U/L (17-59) 04/28/24 03:28
ALT 42 U/L (0-50) 04/28/24 03:28
Alkaline Phosphatase 64 U/L (38-126) 04/28/24 03:28
Most recent labs reviewed.
Chest X-Ray: Image Reviewed (my read possible perihilar fullness and LLL infiltrate) and Report Reviewed (moderate loculated L pleural effusion)
Micro Results:
04/27/24 16:20 Blood Culture - Preliminary
Blood/Venous No Growth in 48 hours- Final report to follow
04/27/24 16:10 Blood Culture - Preliminary
Blood/Venous No Growth in 48 hours- Final report to follow
04/27/24 11:28 Blood Culture - Preliminary
Blood/Venous No Growth in 48 hours- Final report to follow
04/27/24 11:28 Blood Culture - Preliminary
Blood/Venous No Growth in 48 hours- Final report to follow
04/27/24 16:10 Nasal Screen MRSA (PCR) - Final
Nose MRSA not detected - performed by PCR methodology.
04/27/24 11:29 Influenza Types A & B (CAREY) - Final
Nasal Swab Negative for Influenza A & B, NAAT
Negative results must be combined with clinical observations
and patient history.
Nucleic Acid Amplification test (NAAT)performed on the
[employer] ID NOW platform.
Care Review
Plan reviewed with: Physician (Dr Schumacher - CXR findings)
--- NOTE | 2024-04-30 09:23 | W.PN.CD ---
Today's Communication / Plan
-
Switch heparin to Lovenox
Hold metoprolol and atorvastatin given unable to take p.o.
If plan is hospice, can stop Lovenox
Impression / Plan
-
59-year-old with history of frontotemporal dementia, Hypertension, hyperlipidemia, diabetes. He was transferred from [facility] with a decline in functional status and being obtunded. He was found to be in rapid atrial fibrillation and
he was emergently cardioverted in the emergency room to sinus tachycardia. He is being treated for sepsis with severe dehydration.
AFib with RVR, resolved
- S/p emergent cardioversion in ER
- Afib likely from acute medical illness
- [id number] seems to be 1 for hx HTN
- 30 days of Eliquis or some full dose anticoagulation is appropriate (pending goals of care)
- Switch heparin to Lovenox now that SANDY has resolved (unable to take PO)
- Unable to add low-dose Metoprolol due to inability to take PO
Abnormal troponin => nonischemic myocardial injury related to sepsis
- Peak troponin was first trop 0.9
- No role for stress testing. He is not a candidate for the labor delivery rn given his DNR status and advanced dementia
Suspected sepsis
- CXR supports LLL pneumonia
- Treatment per primary team
Mixed hyperlipidemia
- Atorvastatin on hold due to inability to take p.o.
DVT ppx
- on ASA as outpatient
- hold ASA due to systemic AC
Altered mental status
Dementia, fronto-temporal
SANDY, improving
Lactic acidosis, resolved
Hypernatremia
DM
Subjective/Interval Hx:
Lethargic this AM. No afib on telemetry. HRs 80s
Physical Exam
Vital Signs/Labs
Vital Signs
Temp Pulse Resp BP Pulse Ox
98.9 F 80 31 114/79 96
04/30/24 04:34 04/30/24 07:00 04/30/24 07:00 04/30/24 07:00 04/30/24 07:00
04/29/24 04/30/24 05/01/24
06:59 06:59 06:59
Actual Weight 47.8 kg 49.8 kg
04/30/24 05:02
04/30/24 05:02
PT 16.2 Sec (11.4-14.6) H 04/28/24 06:02
INR 1.28 04/28/24 06:02
APTT 80.5 Sec (23.4-35.0) H 04/30/24 05:02
Magnesium 2.2 mg/dl (1.6-2.3) 04/27/24 21:13
04/27/24
11:28
Pds-M-Hsbueaqmkhh Pept 4330
LAB Results
04/27/24 04/27/24 04/27/24
11 16:20 21:00
Troponin I 0.926 H* 0.859 H* Cancelled
04/27/24 04/28/24
23:20 07:45
Troponin I 0.472 H* D 0.415 H*
Physical Exam
Constitutional: No acute distress
Cardiovascular: Rhythm & rate is regular, Pedal edema is absent, JVD pressure is normal, S1S2 is normal and Murmur/rub/gallop absent
Respiratory: Respiratory effort normal
Data Reviewed
-
Date of Service: April 30, 2024
Medical Decision Making: Reviewed Test Results, Independent Historian Assessment, Test Interpretation and Review of Case with other Provider
EKG: Tracing Personally Visualized and interpreted
Echo: Report Reviewed by me
Labs: Labs Reviewed by me
--- NOTE | 2024-04-30 10:28 | PN.CDI ---
CDI
- -
CDI:
Physician Documentation Request
Admit Date: 04/27/24 13:19
Dear Doctor,
Please review the following and provide your response in the progress notes.
Clinical Indicators:
- 04/30 PN 'Elevated troponin, likely nonischemic myocardial injury secondary to sepsis'
- 04/30 Cardiology 'Abnormal troponin => nonischemic myocardial injury related to sepsis'
- 'No role for stress testing. He is not a candidate for the seed analysis laboratory assistant'
- 04/29 Pulmonary 'Troponin increased-due to demand ischemia with type II PR '
Laboratory Tests
04/27/24 04/27/24 04/28/24
11:28 16:20 07:45
Troponin I 0.926 H* 0.859 H* 0.415 H*
Please clarify the following regarding the documented elevated troponins:
Type II PR due to demand ischemia
Non-ischemic myocardial injury
Other (please specify)
Use of terms such as suspected, likely, concern for, or probable (associated with a specific diagnosis that is being evaluated, monitored, or treated as if it exists) are acceptable and can be coded in the inpatient setting, when documented at the
time of discharge.
Thank you,
Nathalie Mehta RN
CDI Specialist
Please use your independent medical judgment in providing your response.
--- NOTE | 2024-04-30 10:44 | PN.CDI ---
CDI
- -
CDI:
Physician Documentation Request
Admit Date: 04/27/24 13:19
Dear Doctor Alfredo,
Please review the following and provide your response in the progress notes.
Clinical Indicators:
- 04/30 PN 'Elevated troponin, likely nonischemic myocardial injury secondary to sepsis'
- 04/30 Cardiology 'Abnormal troponin => nonischemic myocardial injury related to sepsis'
- 'No role for stress testing. He is not a candidate for the medical laboratory technologist'
- 04/29 Pulmonary 'Troponin increased-due to demand ischemia with type II PR '
Laboratory Tests
04/27/24 04/27/24 04/28/24
11:28 16:20 07:45
Troponin I 0.926 H* 0.859 H* 0.415 H*
Please clarify the following regarding the documented elevated troponins:
Non-ischemic myocardial injury
Type II PR due to demand ischemia
Other (please specify)
Use of terms such as suspected, likely, concern for, or probable (associated with a specific diagnosis that is being evaluated, monitored, or treated as if it exists) are acceptable and can be coded in the inpatient setting, when documented at the
time of discharge.
Thank you,
Nathalie Mehta RN
CDI Specialist
Please use your independent medical judgment in providing your response.
--- NOTE | 2024-04-30 10:49 | PN.CDI ---
CDI
- -
CDI:
Physician Documentation Request
Admit Date: 04/27/24 13:19
Dear Doctor,
Please review the following and provide your response in the progress notes.
Clinical Indicators:
- 04/29 Wound note indicates wounds all POA:
- DTI sacrum/coccyx/buttocks
- Stage 2 scrotum pressure injury
- Stage 2 left jaw and left collar bone pressure injury
- Stage 2 right medial heel pressure injury
- DTI right posterior heel
- Stage 2 right salazar pressure injury
- Stage 1 left lateral ankle pressure injury
Physician documentation of the type and location of wounds is required for compliant documentation. Based on the above clinical findings and your assessment, please provide the following in your progress note:
1. Location of the ulcer/wound, including laterality.
2. Type (etiology) of ulcer/wound:
- Diabetic ulcer
- Arterial (ischemic) ulcer
- Traumatic wound
- Venous stasis ulcer
- Pressure (decubitus) ulcer
- Non-healing surgical wound
- Other
- Unable to determine
3. For a non-pressure ulcer, please indicate the depth/severity:
- Limited to the breakdown of skin
- With fat layer exposed
- With necrosis of muscle
- With necrosis of bone
- Other
- Unable to determine
4. If a pressure ulcer, please also include the stage* of the ulcer:
- Stage 1 - Skin intact, non-blanchable redness
- Stage 2 - Partial thickness loss of dermis, includes intact or open blister
- Stage 3 - Full thickness tissue not including bone, tendon or muscle
- Stage 4 - Full thickness tissue loss, including exposed bone, tendon or muscle
- Unstageable - Full thickness loss in which the base of the ulcer is covered by slough (yellow, modi, marie, green or brown) and/or eschar (modi, brown or black) in the wound bed.
- Unable to determine
Use of terms such as suspected, likely, concern for, or probable (associated with a specific diagnosis that is being evaluated, monitored, or treated as if it exists) are acceptable and can be coded in the inpatient setting, when documented at the
time of discharge.
Thank you,
Nathalie Mehta RN
CDI Specialist
Please use your independent medical judgment in providing your response.
*Source: National Pressure Ulcer Advisory Panel (NPUAP)
[2024-04-30] MEDS: NOVOLOG FLEXPEN-LOW RESISTANCE 1 UNITS SC ×2 (11:33→18:11)
[2024-04-30 11:41] LABS: Glucose - Point of Care 193 mg/dl (70-99)
--- NOTE | 2024-04-30 11:41 | PTCARENOTE ---
No change in assessment. Pt turned and repositioned. Family at bedside. Safe environment maintained.
[2024-04-30] MEDS: LOVENOX 50 MG SC ×2 (12:10→22:51)
[2024-04-30] MEDS: 0.45%NACL 250 IV (12:11)
--- NOTE | 2024-04-30 13:57 | CM ---
CM following re: discharge planning.
Reviewed pt's chart, met with pt. pt's mother, spouse, son, daughter in law at bedside.
CM had a long family meeting. Pt's family reports that pt was at [facility] and was placed to [facility] for a group home care. Per family, pt was walking independently at [facility] and their social security specialist was not able to find a
ch[facility] in [facility] or [facility] and pt placed top [facility]. 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 Per mother pt was a heavy drinker back in younger age and per
son, pt abused crack cocaine in the past. family feels that TBI, alcohol and drugs abuse might contribute to his Dementia.
Pt's family stated that pt placed to [facility] 2 weeks ago with Medicaid pending pay source and family made a very strong request not to send the pt to [facility].
Pt's family stated that pt's daughter used to work at [employer] nursing [employer] and they have been working on a potential pt's admission there. [facility]: [phone], emerging technologies director Shaye [phone]. CM spoke to Shaye,
explained the treatment plan and she confirmed that with peg tube pt will be accepted for a short term rehab ad a group home care. Shaye requested to send a referral when more clinical information is available.
At this point pt declined hospice care and preferred aggressive care with peg tube placement.
D/C plan: most likely [facility] for a short term rehab and a group home care.
CM will follow with discharge plan updates as hospitalization progresses
--- NOTE | 2024-04-30 14:39 | CON.GI ---
Consultation
-
Date/Time Consultation Requested: 04/30/24 1420
Date/Time Consultation Performed: 04/30/24 1440
Requesting Provider: Sha Schumacher MD
Performing Provider: MARÍA Salguero, Destiny Francisco DO
Reason for Consultation: peg evaluation
Medical History
Chief Complaint / HPI
Chief Complaint: nutritional evaluation
History of Present Illness:
Pt is a 59yo with hx seizures, frontal temporal dementia for last several years, HTN, hyperlipidemia, IDDM present 04/27 with TME with sepsis/fever/leukocytosis/elevated lactate and concern for aspiration. Pt was noted with SANDY now resolving with
marked elevated BUN up to 113 on admission, Afib with RVR on admission now on high dose Lovenox with cardiology evaluation. He is noted with elevated troponin with non ischemic LA related to sepsis. He also has current evaluation for loculated
pleural effusion and due for follow up for IR to eval for drainage and need for chest tube with increased O2 demand . Family has had discussion for hospice but asked to see for peg as would like to continue nutrition. Pt is currently DNR.
History provided by family as pt unable with minimal verbal communication. In review with family pt was at home and [facility] about 2 weeks ago. They believe he was eating well but [facility] last 2 week.
report he was coughing with eating especially liquid. He has been seen by speech and recommended NPO with concern for aspiration. Family denies GERD, nausea, vomiting, abdominal pain, diarrhea, constipation or rectal bleeding. No EGD in past but
possible colonoscopy at age 49.
Past Medical History
Past Medical History: HTN, Hypercholesterolemia, IDDM, Seizures and Psychiatric (frontal/tempral dementia )
Social History
Tobacco: Former Smoker (quit 1-2 years ago)
Alcohol: Former (sober last 9-10 years )
Drug: None
Personal:
Living: Senior Care
Employment: Disabled
Family History
Family History: Other (no family hx colon CA or polyps)
Allergies / Home Medications
Allergy/AdvReac Type Severity Reaction Status Date / Time
No Known Allergies Allergy Unverified 04/27/24 10:56
�Medication �Instructions �Recorded
acetaminophen 325 mg tablet 650 mg PO Q6HPRN PRN mild pain 04/27/24
(Tylenol)
amoxicillin 500 mg capsule 1,000 mg PO TID infection 04/27/24
aspirin 81 mg tablet,delayed 81 mg PO DAILY Blood Clot 04/27/24
release Prevention/Tx
atorvastatin 10 mg tablet (Lipitor) 10 mg PO HS High Cholesterol 04/27/24
bisacodyl 10 mg rectal suppository 10 mg MS DAILYPRN PRN if no bm 04/27/24
(Dulcolax (bisacodyl)) aftr mom
cholecalciferol (vitamin D3) 25 25 mcg PO DAILY Supplement 04/27/24
mcg (1,000 unit) tablet (Vitamin
D3)
docusate sodium 100 mg capsule 100 mg PO BID Constipation 04/27/24
(Colace)
finasteride 5 mg tablet 5 mg PO DAILY Urinary Issue 04/27/24
guaifenesin 600 mg tablet, 600 mg PO DAILY cough/congestion 04/27/24
extended release 12 hr
ibuprofen 200 mg tablet (Advil) 400 mg PO Q6HPRN PRN fever 04/27/24
insulin glargine 100 unit/mL (3 3 unit SC HS diabetes 04/27/24
mL) subcutaneous pen (Lantus
Solostar U-100 Insulin)
insulin lispro 100 unit/mL 0 sliding scale dose SC AC diabetes 04/27/24
subcutaneous pen
lorazepam 0.5 mg tablet 0.5 mg PO HS anxiety 04/27/24
loxapine succinate 25 mg capsule 25 mg PO DAILY depression/anxiety 04/27/24
loxapine succinate 50 mg capsule 50 mg PO HS depression/anxiety 04/27/24
magnesium hydroxide 400 mg/5 mL 2,400 mg PO [id number] PRN if no bm 04/27/24
oral suspension (Milk of Magnesia) on 3rd day
polyethylene glycol 3350 17 gram 17 g PO DAILY Constipation 04/27/24
oral powder packet (Miralax)
sodium phosphates 19 gram-7 118 ml MS DAILYPRN PRN if no bm 04/27/24
gram/118 mL enema (Fleet Enema) aftr dulcolax
tamsulosin 0.4 mg capsule (Flomax) 0.8 mg PO HS Urinary Issue 04/27/24
valproic acid (as sodium salt) 250 500 mg PO BID depression/anxiety 04/27/24
mg/5 mL oral solution
Review of Systems
-
Unable to obtain full review of systems at this time due to: Dementia and Other (minimal verbal per patient )
History Source: Patient and Family
Constitutional: Reports Fever (on admission) and Weight Loss (last 1-2 weeks )
EENT: Reports No Symptoms
Respiratory: Reports Cough and Trouble Breathing
Cardiac: Reports No Symptoms
Abdomen/GI: Reports No Symptoms
: Reports No Symptoms
Musculoskeletal: Reports No Symptoms
Skin: Reports No Symptoms
Neurological: Reports Weakness
Endocrine: Reports No Symptoms
Hematologic/Lymphatic: Reports No Symptoms
Vital Signs
Temp Pulse Resp BP Pulse Ox
98.1 F 90 34 110/75 96
04/30/24 08:00 04/30/24 13:00 04/30/24 13:00 04/30/24 13:00 04/30/24 13:00
Physical Exam
Exam
General: Other (appears older than stated age non verbal in exam)
HEENT: Normocephalic and Anicteric
Respiratory: Other (course throughout, with dyspnea at rest )
Cardiac: Regular Rhythm
GI: Soft, Non Tender and Non Distended
Musculoskeletal: No Clubbing and No Cyanosis
Skin: Warm and Dry
Neuro: Other (non verbal in exam)
Psych: Calm
Results
WBC 5.2 10^3/uL (4.8-10.8) 04/30/24 05:02
Hgb 13.3 g/dL (13.0-18.0) 04/30/24 05:02
Hct 38.9 % (39.0-52.0) L 04/30/24 05:02
MCV 85.3 fL (80.0-94.0) 04/30/24 05:02
Plt Count 151 10^3/uL (130-400) 04/30/24 05:02
Absolute Neuts (auto) 5.2 10^3/uL (1.4-6.5) 04/28/24 03:28
PT 16.2 Sec (11.4-14.6) H 04/28/24 06:02
INR 1.28 04/28/24 06:02
APTT 80.5 Sec (23.4-35.0) H 04/30/24 05:02
Sodium 144 mmol/L (135-145) 04/30/24 05:02
Potassium 4.2 mmol/L (3.5-5.1) 04/30/24 05:02
Chloride 107 mmol/L (98-107) 04/30/24 05:02
Carbon Dioxide 30 mmol/L (22-30) 04/30/24 05:02
BUN 56 mg/dl (9-20) H 04/30/24 05:02
Creatinine 1.2 mg/dL (0.7-1.3) 04/30/24 05:02
Calcium 8.6 mg/dl (8.4-10.2) 04/30/24 05:02
Total Bilirubin 0.6 mg/dl (0.2-1.3) 04/28/24 03:28
AST 28 U/L (17-59) 04/28/24 03:28
ALT 42 U/L (0-50) 04/28/24 03:28
Alkaline Phosphatase 64 U/L (38-126) 04/28/24 03:28
Diagnostic Image Results:
04/29/24 echo
Normal left ventricular size and systolic function. LVEF 55-60%.
Normal RV size and function.
Small perimembranous VSD with [id number] shunting.
Mildly elevated PASP (39 mmHg).
04/30/24 CXR
Moderate loculated left pleural effusion. Progressed. Underlying mass and pneumonia not excluded
04/27/24 ct head
No acute intracranial abnormality.
Prior GI Procedures:
EGD: none
Colonoscopy: ? age 49 for screening
Assessment / Plan
-
Pt is a 59yo with hx seizures, frontal temporal dementia for last several years, HTN, hyperlipidemia, IDDM present 04/27 with TME with sepsis/fever/leukocytosis/elevated lactate and concern for aspiration. Pt was noted with SANDY now resolving with
marked elevated BUN up to 113 on admission, Afib with RVR on admission now on high dose Lovenox with cardiology evaluation. He is noted with elevated troponin with non ischemic LA related to sepsis. He also has current evaluation for loculated
pleural effusion and due for follow up for IR to eval for drainage and need for chest tube with increased O2 demand . Family has had discussion for hospice but asked to see for peg as would like to continue nutrition. Pt is currently DNR.
-failed speech eval - NPO status
-wt loss
-sepsis with aspiration PNA
-loculated pleural effusion
-hx frontal temp dementia with progression of disease
-afib with RVR
-elevated troponin
other med problems:
-HTN
-hyperlipidemia
-IDDM
-prior tobacco 1-2 years agp and ETOH abuse 10 years ago
PLAN:
Pt current with concern for aspiration PNA with effusion with currently high flow O2
plan for IR eval for drainage
discussed with family would like patient to begin nutrition with wt loss and dysphagia
after IR eval assess resp status
if resp status remains with hypoxemia and increased resp effort consider temp DHT til resp status improve
when improved from resp status if swallowing function still decreased then consider peg
if proceeding with peg will need to hold high dose Lovenox
all questions answered -- reviewed risk/benefits of peg with family
is contact -- Ursula [phone] if need consent for eventual peg
-
-
Thank you for consultation and allowing me to participate in the patient's care. Please call the substation electrician supervisor GI physician during the after hours with any questions or concerns.
--- NOTE | 2024-04-30 15:33 | W.PN.UPDATE ---
Update Note
Progress Note Update
At bedside to meet with family. Rose Marie now says they do NOT want hospice; they want to proceed with PEG tube to provide nutrition. Unfortunately with 12L O2 requirement and xray indicating moderate loculated left pleural effusion progressed from
admission, he is not a good candidate for invasive procedures. Discussed with GI, pulmonology, IR, ID, nursing, family, CM. Appreciate recommendations. Plan for IR drainage of pleural effusion prior to dobhoff. Reassess for PEG placement when more
stable.
--- NOTE | 2024-04-30 16:13 | PTCARENOTE ---
Pt transported to IR via bed.
--- NOTE | 2024-04-30 16:18 | W.PN.UPDATE ---
Update Note
Progress Note Update
US performed of the left chest. Small pleural effusion, not large enough for safe thoracentesis. No procedure performed.
[2024-04-30] MEDS: 0.45%NACL 1000 IV (17:20)
[2024-04-30] MEDS: 0.45%NACL IV (17:20)
[2024-04-30 18:20] LABS: Glucose - Point of Care 190 mg/dl (70-99)
--- NOTE | 2024-04-30 20:00 | PTCARENOTE ---
Received pt via handoff. Pt will respond to verbal stimuli but mumbles incoherent words. NSR, pulses present but weak on palpation. 100% 8L midflow. Hypoactive bowels sounds in all 4Q.#25 condom cath draining clear yellow urine. Skin deviations
noted see flowsheet.
[2024-04-30 21:48] LABS: LDH 713 U/L (120-246)
[2024-04-30] MEDS: NSS (PRESERVATIVE FREE) 0.125 ML IV (22:52)
[2024-04-30] MEDS: ATIVAN 0.25 MG IV (23:15)
[2024-05-01] VITALS (16 sets, daily range): BP systolic 83–128; BP diastolic 60–90; BMI 15.2
--- NOTE | 2024-05-01 00:12 | PTCARENOTE ---
All systems reassessed. Hygiene performed. Assessment ongoing.
[2024-05-01] MEDS: ZOSYN 50 IV ×3 (00:45→11:46)
[2024-05-01] MEDS: DEPACON 52.5 MG IV ×5 (00:45→23:06)
[2024-05-01] MEDS: NOVOLOG FLEXPEN-LOW RESISTANCE 2 UNITS SC (00:50)
[2024-05-01 01:01] LABS: Glucose - Point of Care 221 mg/dl (70-99)
[2024-05-01 03:45] LABS: Hematocrit 35.5 % (39.0-52.0); Hemoglobin 12.2 g/dL (13.0-18.0); Mean Corp Hgb Conc. 34.4 g/dL (33.0-37.0); Mean Corpuscular Hgb 28.6 pg (27.0-31.0); Mean Corpuscular Volume 83.3 fL (80.0-94.0); Mean Platelet Volume 10.2 fL (7.4-10.4); Platelet Count 149 10^3/uL (130-400); Red Blood Cell Count 4.26 10^6/uL (4.70-6.10); Red Cell Dist. Width 12.4 % (11.5-14.5); White Blood Cell Count 5.8 10^3/uL (4.8-10.8)
--- NOTE | 2024-05-01 04:00 | PTCARENOTE ---
All systems reassessed. No change in patients status. Assessment ongoing.
[2024-05-01 04:12] LABS: Blood Urea Nitrogen 37 mg/dl (9-20); Calcium 7.3 mg/dl (8.4-10.2); Carbon Dioxide 26 mmol/L (22-30); Chloride 113 mmol/L (98-107); Estimated Creatinine Clearance 61 ml/min; Glucose 149 mg/dl (70-99); Potassium 3.7 mmol/L (3.5-5.1); Sodium 146 mmol/L (135-145); eGFR > 60.00
[2024-05-01] MEDS: NOVOLOG FLEXPEN-LOW RESISTANCE SC ×2 (05:18→11:48)
[2024-05-01 05:28] LABS: Glucose - Point of Care 144 mg/dl (70-99)
--- NOTE | 2024-05-01 08:05 | W.PN.NEPH.PH ---
Today's Communication / Plan
-
maintain hypotonic IVFs
Assessment/Plan
-
Impression:
Sepsis: suspected LLL PNA
Atrial fibrillation status post cardioversion with hemodynamic instability (likely secondary to sepsis)
Change of mental status obtunded/found down in senior living
Acute kidney injury with creatinine of 3.2
Lactic metabolic acidosis
Hyperkalemia
Hypernatremia
Diabetes
BPH
Frontal temporal dementia
Positive troponin
Plan:
follow BMP
change hypotonic IVF 1/4NS 60ml/hr
interested in hospice
Patient will need PEG tube to maintain hydration status as patient family wants to be aggressive
-
-
Date of Service: May 01, 2024
CC / HPI / ROS
-
Chief Complaint:
Acute kidney injury
History of Present Illness:
SANDY/Cr down to 0.9
Na at 146 with hypotonic IVF
Metabolic acidosis resolved
Remains in normal sinus rhythm off Cardizem drip, but on heparin
Hemodynamically labile
failed swallow study
Review of Systems:
nonverbal/noncommunicative
Nonoliguric via condom catheter
Labs
-
Labs:
WBC 5.8 10^3/uL (4.8-10.8) 05/01/24 03:30
RBC 4.26 10^6/uL (4.70-6.10) L 05/01/24 03:30
Hgb 12.2 g/dL (13.0-18.0) L 05/01/24 03:30
Hct 35.5 % (39.0-52.0) L 05/01/24 03:30
Plt Count 149 10^3/uL (130-400) 05/01/24 03:30
Sodium 146 mmol/L (135-145) H 05/01/24 03:30
Potassium 3.7 mmol/L (3.5-5.1) 05/01/24 03:30
Chloride 113 mmol/L (98-107) H 05/01/24 03:30
Carbon Dioxide 26 mmol/L (22-30) 05/01/24 03:30
BUN 37 mg/dl (9-20) H 05/01/24 03:30
Creatinine 0.9 mg/dL (0.7-1.3) 05/01/24 03:30
eGFR > 60.00 05/01/24 03:30
Glucose 149 mg/dl (70-99) H 05/01/24 03:30
Calcium 7.3 mg/dl (8.4-10.2) L 05/01/24 03:30
Phosphorus 7.9 mg/dl (2.5-4.5) H 04/27/24 21:13
Mzn-L-Guzwhxfrfcf Pept 4330 pg/ml 04/27/24 11:28
Albumin 2.8 g/dl (3.5-5.0) L 04/28/24 03:28
Physical Exam
-
Vital Signs:
Vital Signs
Temp Pulse Resp BP Pulse Ox
97.9 F 72 35 106/90 99
05/01/24 07:26 05/01/24 05:00 05/01/24 05:00 05/01/24 05:00 05/01/24 04:00
Cardiovascular:: Regular rate and rhythm
Respiratory:: Bilateral: Coarse
Lung Excursion:: Normal
Abdomen:: Nontender and Soft
Bowel Sounds:: Normal
Extremity Edema:: None: Bilateral:
--- NOTE | 2024-05-01 08:12 | W.PN.PUL3 ---
Today's Communication / Plan
-
Additional family members en route to the hospital and patient will be transitioned to comfort care
Stop all medications unless tailored for comfort
prn morphine for air hunger/pain, prn Ativan for agitation/anxiety, and prn glycopyrrolate for excessive secretions
Welding Machine Operator Submerged Arc being called by RN
Emotional support provided to the family
Continue with high flow nasal cannula until patient is ready to be transition to comfort care
Patient being transitioned to comfort care once additional family was arrived to bedside. No additional recommendations at this time - Pulmonary service will now sign off. Please reconsult if there are any additional questions/concerns, or if
patient's respiratory status deteriorates.
Assessment
-
59-year-old man with frontotemporal dementia. Found down at the custodial. It was brought into the hospital for further evaluation. Found to be in rapid atrial fibrillation requiring emergent cardioversion in the emergency room. Found to have
profound metabolic acidosis, hypernatremia with dehydration hypoxemia and possible aspiration
Impression:
Acute hypoxemic respiratory failure due to aspiration pneumonia/pneumonitis with atelectasis
Toxic metabolic encephalopathy-possible history of seizures-patient was found down at the custodial
Severe Sepsis: Due to aspiration pneumonia
Acute HFpEF (proBNP elevated)
Rapid atrial fibrillation now in NSR
Lactic acidosis � now resolved
Troponin increased- likely nonischemic myocardial injury secondary to sepsis with demand ischemia/type II MT (troponin peaked at 0.926 on 04/27/2024)
Anion gap metabolic acidosis - resolved
Acute kidney injury - improving
Hyperkalemia - resolved
Hypernatremia-volume depletion - mild
Conditions present prior admission:
Frontotemporal dementia with aggressive behavior
Insulin-dependent diabetes
History of mood disorder on Depakote
BPH
Malnutrition-cachectic
Prolonged admission at [facility] March 2024-unclear details
Assessment and plan:
Patient remains minimally responsive although hemodynamically stable, now with worsening hypoxia on midflow nasal cannula and now requiring high flow nasal cannula
He is declining and is heading towards comfort care (see separate update note)
Family en route to the hospital
CT head negative
Minimal coughing
-
Hypoxic acute respiratory failure: Chest x-ray showed left lower lobe possible infiltrate. Cannot rule out aspiration event versus atelectasis (no prior CXR to compare to)
ABG 7.-patient's mental status continues to be poor. He is obtunded - no evidence for hypercapnia to be cause of patient's AMS
Not a candidate for noninvasive mechanical ventilation given iatrogenic aspiration risk
DNR/DNI status
Continue oxygen supplementation to keep SpO2 >90-94%
Prognosis is poor
Will not repeat ABG as there is no escalation of care and he is not a candidate for aggressive intervention at this point
-
Agree with antibiotics to cover for possible aspiration pneumonia
Currently Zosyn s/p IV vancomycin x 2 doses on 04/27 + 04/28
MRSA screen negative
Infectious disease following
-
Leukocytosis remains normal - c/t trend
No longer febrile since admission on 04/27
-
Severe sepsis-blood pressure improved after IV fluids and is now stable
No vasopressor requirement.
Anion gap metabolic acidosis/respiratory acidosis: Lactic acidosis with poor compensation.
Resolved acidosis as of 04/28/2024.
Lactic acidosis normalized as of 04/28/2024
Status post fluid resuscitation-now transition to hypotonic solution due to hyponatremia --> nephrology on board and recs appreciated
C/t trend sNa
Bicarbonate drip discontinued on 04/28/2024 --> c/t trend sHCO3
CXR yesterday AM shows concern for L-sided loculated effusion --> chest US done yesterday showing small left pleural effusion that was not amenable to thoracentesis --> CXR this morning shows improved aeration in the left lung base with worsening
right basilar airspace consolidation due to aspiration
-
Not a candidate for noninvasive mechanical ventilation-poor mental status with high aspiration risk
would not want escalation of care, mechanical ventilation or CPR. DNR status. She would not want pressors either.
-
Hyperkalemia resolved
Hypernatremia noted-nephrology following -> continue hypotonic IVF - defer to nephrology
Trend sNa and sCr, unless becomes comfort care at which time this will be a moot point
-
Atrial fibrillation status post cardioversion. Heart rate stable
Cardizem drip discontinued
Cardiology correspondence reviewed, anticoagulation continue for now with therapeutic LMWH
-
Troponin has peaked at 0.926 on admission; no longer need to continue trending
Echo performed 04/29/2024 showing normal biventricular size and function with LVEF 55-60% with small perimembranous VSD with left�to�right shunting and mildly elevated PASP (39 mmHg)
-
NPO while remains minimally response
Head of the bed elevation to avoid risk of aspiration
GI consulted for PEG; too hypoxic for G tube at this time
-
Dr. Escobar personally discussed with the power of employee benefits attorney at the bedside, 04/27/2024. Patient has been losing weight & clinically deteriorating over the last few years - has lost about ~70 pounds. Now non-ambulatory. She would not want
intubation, CPR or escalation of care. Continue with antibiotics and IV fluids. Okay with labs. Prognosis is poor and she understands.
-
Patient is DNR/DNI status, not requiring vasopressors. He will not be intubated. Not a candidate for noninvasive mechanical ventilation.
No longer requiring continuous Cardizem drip.
Was transferred from ICU to IMU on 04/28/2024 - TRX to med surg on 04/30, however now that he is more hypoxic he was upgraded back to IMU on 05/01/2024. Family en route to the hospital and goals of care discussion held (see separate update note)
and they are transitioning to comfort care once additional family was arrived to the hospital. Dr. Fuentes spoke with the family, answered all her questions, aircraft dispatcher being called and emotional support provided. He remains DNR/DNI. Guarded
prognosis
Patient being transitioned to comfort care once additional family was arrived to bedside. No additional pulmonary recommendations at this time. Pulmonary service will now sign off. Thank you for allowing us to be involved in the care of this
patient. Please reconsult if there are any additional questions/concerns, or if patient's respiratory status deteriorates.
Data:
CXR 04/30/2024:
Moderate loculated left pleural effusion. Progressed. Underlying mass and pneumonia not excluded
Chest US 04/30/2024: Small left pleural effusion. The amount of fluid was considered inadequate for safe thoracentesis, therefore thoracentesis was not performed.
CXR 05/01/2024:
1. Patchy opacity at the left lung base, suggestive of pneumonia, aspiration, or subsegmental atelectasis. Improved aeration compared to prior chest x-ray.
2. Right basilar airspace consolidation, suggestive of pneumonia, aspiration, or subsegmental atelectasis. Slightly worse compared to prior chest x-ray.
Total time spent today was 26 minutes for this encounter. Time includes reviewing laboratory test/imaging results, reviewing pertinent medical records, obtaining and reviewing medical history, performing an appropriate exam, ordering medications,
tests and procedures. Time also includes documentation of this encounter, coordinating patient care and communicating with other healthcare professionals. Total time does not include separately billed tests performed on this date of service.
Subjective Data
-
Date of Service:
Date of Service: May 01, 2024
Chief Complaint: Pulmonary Follow Up
Subjective:
Patient seen this morning. Worsening O2 saturations while on mid flow at 8 L/min, and he was raised to 15 L/min via midflow. He continued to remain tachypneic with low saturations and ultimately required high flow nasal cannula at 60 L/min / 60%
FiO2. When I saw him he was saturating 100%, heart rate 84 and breathing at 27-28 breaths/min. He remains unresponsive.
Review of Systems
General: Unobtainable - Pat Unresp
Objective Data
Data Reviewed
Vital Signs / I&O / Oxygen:
Vital Signs
Temp Pulse Resp BP Pulse Ox
97.9 F 94 34 106/90 94
05/01/24 07:26 05/01/24 09:25 05/01/24 09:25 05/01/24 05:00 05/01/24 09:25
Intake and Output
04/30/24 05/01/24 05/02/24
06:59 06:59 06:59
Intake Total 2776.5 / 2776.5 505 / 505
Output Total 1950 / 1950 650 / 650
Balance 826.5 / 826.5 -145 / -145
SaO2 94
Nasal Cannula flow liters per 8
minute
Physical Exam
General: Respiratory Distress (mild at rest), Comfortable, Chills (negative) and Sweats (negative)
HEENT: Normocephalic and Anicteric
Cardiovascular: S1-S2 and Peripheral Edema (negative)
Respiratory: Wheeze (negative), Crackles (bilateral), Rhonchi (negative), Accessory Resp Muscle Use (mild) and Other (Diminished breath sounds bilaterally (L>R))
GI: Soft, Non Distended, Non Tender and Normal Bowel Sounds
Neurology: Unresponsive and Other (Pupils appear equal at 3 mm bilaterally - patient is resisting me evaluating his pupils)
Skin: Warm and Dry
Labs/Micro/Reports
Lab Data
05/01/24 03:30
05/01/24 03:30
Laboratory Results
05/01/24
09:15
pH 7.34 L
pCO2 51 H
pO2 73 L
HCO3 27.5
O2 Delivery Level
Microbiology
04/27/24 16:10 Blood/Venous Blood Culture - Preliminary
No Growth in 72 hours- Final report to follow
04/27/24 16:20 Blood/Venous Blood Culture - Preliminary
No Growth in 72 hours- Final report to follow
04/27/24 11:28 Blood/Venous Blood Culture - Preliminary
No Growth in 72 hours- Final report to follow
04/27/24 11:28 Blood/Venous Blood Culture - Preliminary
No Growth in 72 hours- Final report to follow
04/27/24 16:10 Nose Nasal Screen MRSA (PCR) - Final
MRSA not detected - performed by PCR methodology.
--- NOTE | 2024-05-01 08:45 | W.PN.UPDATE ---
Update Note
Progress Note Update
I saw and evaluated the patient independently. I reviewed the resident�s note and agree with findings and plan as documented by Dr. Sanches.
Gen: appears in respiratory distress using accessory muscles, NCAT, appears chronically ill
CV: RRR, +S1/S2, 2/6 systolic murmur
Resp: CTAB anteriorly, no rales, wheezes, or rhonchi.
Abd: +BS, soft, NT, ND
Skin: No rashes.
Neuro: unresponsive
04/27/24 16:10 Blood/Venous Blood Culture - Preliminary
No Growth in 72 hours- Final report to follow
04/27/24 16:20 Blood/Venous Blood Culture - Preliminary
No Growth in 72 hours- Final report to follow
04/27/24 11:28 Blood/Venous Blood Culture - Preliminary
No Growth in 72 hours- Final report to follow
04/27/24 11:28 Blood/Venous Blood Culture - Preliminary
No Growth in 72 hours- Final report to follow
04/27/24 16:10 Nose Nasal Screen MRSA (PCR) - Final
MRSA not detected - performed by PCR methodology.
04/27/24 11:29 Nasal Swab Influenza Types A & B (CAREY) - Final
Negative for Influenza A & B, NAAT
Negative results must be combined with clinical observations
and patient history.
Nucleic Acid Amplification test (NAAT)performed on the
[employer] platform.
CT brain: No acute intracranial abnormality.
CXR 04/27/24: Left hemidiaphragm somewhat obscured suggesting opacification such as subsegmental atelectasis and/or pneumonia and possible small left pleural effusion.
Sepsis, POA, due to LLL PNA (POA):
-With acute hypoxemic respiratory failure, SANDY, and mixed acid-base disorder (AG met acidosis, respiratory acidoses, and contraction alkalosis)
-sepsis due to aspiration pneumonitis and LLL PNA
-was on empiric Vanco/Zosyn. Vanco stopped with NEG MRSA screen on 04/29/24.
-BCxs NGTD
-Flu/COVID NEG
-leukocytosis, POA, resolved
-CXR 04/30/24: Moderate loculated left pleural effusion. Progressed. Underlying mass and pneumonia not excluded.
-Chest U/S without enough fluid to tap
-currently on Zosyn as per ID
-was on IVFs with bicarb, lactic acidosis and SANDY now resolved
-GI saw in c/s as family requesting PEG. Timing of PEG TBD at this point but cannot be done with current degree of respiratory failure.
Acute hypoxemic respiratory failure:
-acutely worsening at the time of my exam with visual respiratory distress (use of accessory muscles), tachypnea, worsening hypoxia, just increased to 12L midflow saturating 84%
-check STAT CXR/ABG
-start high flow
-suspect mucus plug
Acute metabolic encephalopathy:
-likely multifactorial (hypernatremia, sepsis, CVA, seizure)
-h/o frontotemporal dementia x 7 years
Electrolyte abnormalities:
-Hypernatremia, resolved with hypotonic IVF
-Hyperkalemia, resolved
New onset afib with RVR:
-elevated trop is acute nonischemic myocardial injury due to afib with RVR
-cardiology following
-was on cardizem gtt, now converted back to NSR
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
-Echo: EF 55-60%. Normal RV size and function.
-cont BB/Lovenox
Other problems:
DM2: SSI/accuchecks
Severe protein calorie malnutrition
h/o Mood disorder with aggressive behaviors: cont Depakote
BPH: holding flomax
All POA:
- Stage 2 scrotum pressure injury
- Stage 2 left jaw and left collar bone pressure injury
- Stage 2 right medial heel pressure injury
- DTI right posterior heel
- Stage 2 right salazar pressure injury
- Stage 1 left lateral ankle pressure injury
DNR/DNI
Lovenox
Total critical care time spent = 33 min
--- NOTE | 2024-05-01 08:51 | W.PN.UPDATE ---
Update Note
Progress Note Update
reviewed with nursing staff remains on 8 liter mid flow O2 t/c temp DHT and call back GI when resp status optimized for peg
[2024-05-01] MEDS: NSS (PRESERVATIVE FREE) 10 ML IV (08:53)
[2024-05-01] MEDS: PROTONIX IV 40 MG IV (08:53)
--- NOTE | 2024-05-01 09:00 | PTCARENOTE ---
Assumed care of pt at 0715 following shift report. Pt resting quietly- POx mid 90's on 7l/min O2 via midflow. No distress noted. Upon assessment it was noted that pt grimaces and withdraws to noxious stimuli but otherwise unresponsive. Does not
follow any commands. Physical assessment completed as documented. Pt turned/repositioned and comfort care provided. Following care, pt's POx down to 84%- increased midflow to 15l/min w/ POx remaining in 80's. RR mid 30's and pt noted to be using
accessory muscles. Breath sounds unchanged from prior assessment. 100% NRB mask applied w/ POx improved to >90%. Dr Schumacher in room to evaluate pt and updated on pt's present condition including level of responsiveness, resp. distress/hypoxia w/
increased O2 demand. Orders received to upgrade pt to IMU level of care. ABG obtained and sent to lab. Resp Therapy to room to provided ordered prn tx. Portable CXR obtained. Pt's RR remains in mid 30's w/ Pox 97%. NRB removed w/ POx continuing mid
90's. O2 remains on 15l/min via midflow. Continuous Pox in use. Will continue to monitor closely.
--- NOTE | 2024-05-01 09:05 | W.PN.ID1 ---
Date of Service
Date of Service: May 01, 2024
Today's Communication
- day 5 of zosyn adjusted dose for improving renal function - when PEG placed can transition to augmentin 875/125 mg PO BID for a 14 day course (through 05/10)
- short to medium term prognosis remains poor with high risk for recurrent aspiration even with PEG tube, my recommendation is hospice, however family not accepting at this time
Assessment / Plan
Suspected Aspiration Pneumonia
Fever
Altered Mental Status
Frontotemporal Dementia
SANDY - improved
Hypernatremia, Uremia
Cachexia
- blood cultures x2 in progress
- unable to obtain a sputum
- mrsa nasal screen negative
- day 5 of zosyn adjusted dose for improving renal function - when PEG placed can transition to augmentin 875/125 mg PO BID for a 14 day course (through 05/10)
- short to medium term prognosis remains poor with high risk for recurrent aspiration even with PEG tube, my recommendation is hospice, however family not accepting at this time
Chief Complaint
-: Pneumonia and Other (AMS)
Subjective / Review of Systems
afebrile
bp stable
overnight family decided to continue with all aggressive measures
Vital Signs / Physical Exam
Vital Signs
Vital Signs
Temp Pulse Resp BP Pulse Ox
97.9 F 72 35 106/90 99
05/01/24 07:26 05/01/24 05:00 05/01/24 05:00 05/01/24 05:00 05/01/24 04:00
Physical Exam
Constitutional: No Acute Distress, Chronically Ill and Cachetic
Cardiovascular: Regular Rate and S1/S2; Negative Murmur or Rub
Pulmonary: Clear and Symmetric; Negative Wheezes or Rales
Gastrointestinal: Soft, Non Tender, Non Distended and Normal Bowel Sounds
Skin: Warm and Dry; Negative Rash or Jaundice
Neurological: Negative Awake
Objective Data
Lab Data
Lab Results
05/01/24 03:30
05/01/24 03:30
PT 16.2 Sec (11.4-14.6) H 04/28/24 06:02
INR 1.28 04/28/24 06:02
APTT 80.5 Sec (23.4-35.0) H 04/30/24 05:02
Estimated Creat Clear 61 ml/min 05/01/24 03:30
Lactic Acid 1.9 mmol/L (0.7-2.0) 04/28/24 12:39
Total Bilirubin 0.6 mg/dl (0.2-1.3) 04/28/24 03:28
AST 28 U/L (17-59) 04/28/24 03:28
ALT 42 U/L (0-50) 04/28/24 03:28
Alkaline Phosphatase 64 U/L (38-126) 04/28/24 03:28
Most recent labs reviewed.
Micro Results:
04/27/24 16:10 Blood Culture - Preliminary
Blood/Venous No Growth in 72 hours- Final report to follow
04/27/24 16:20 Blood Culture - Preliminary
Blood/Venous No Growth in 72 hours- Final report to follow
04/27/24 11:28 Blood Culture - Preliminary
Blood/Venous No Growth in 72 hours- Final report to follow
04/27/24 11:28 Blood Culture - Preliminary
Blood/Venous No Growth in 72 hours- Final report to follow
04/27/24 16:10 Nasal Screen MRSA (PCR) - Final
Nose MRSA not detected - performed by PCR methodology.
04/27/24 11:29 Influenza Types A & B (CAREY) - Final
Nasal Swab Negative for Influenza A & B, NAAT
Negative results must be combined with clinical observations
and patient history.
Nucleic Acid Amplification test (NAAT)performed on the
[employer] platform.
Care Review
Plan reviewed with: Physician (Dr Schumacher - antibiotic plan)
[2024-05-01] MEDS: SODIUM CHLORIDE 1009.625 MEQ IV (09:17)
[2024-05-01] MEDS: DUONEB 3 ML INH (09:21)
[2024-05-01 09:24] LABS: B.E. 0.9 mmol/L; HCO3 27.5 mmol/L (21-28); O2 Saturation % 94.3 % (94-98); PCO2 51 mmHg (35-48); PO2 73 mmHg (83-108); pH 7.34 (7.35-7.45)
--- NOTE | 2024-05-01 09:35 | PTCARENOTE ---
Tulio text to Dr Schumacher w/ ABG results and updated on pt's present O2 demand- 15l/min midflow w/ POx mid 90's.
--- NOTE | 2024-05-01 09:38 | W.PN.HOSP.TC ---
Today's Communication/Plan
-
continue antibiotics, GI consulted for ?PEG vs dobhoff, goals of care discussion ongoing- family declining hospice
Assessment / Plan
Assessment / Plan
59yo M with H frontotemporal dementia (with aggressive behavioral dysfunction), HTN, DM on insulin, h/o mood disorder, who presented to ED 04/27/24 for altered mental status and tachycardia. At baseline, patient is apparently combative and
yelling, resides at nursing facility for dementia. Prior to arriving at hospital, patient was nonverbal.
Toxic metabolic encephalitis
Obtunded on hospital admission
- Likely multifactorial in nature- sepsis, hypernatremia, seizure may be contributing- see below for individual plans
- Head CT 04/27 negative for acute intracranial stroke, hemorrhage, mass
- NPO, aspiration requirements. Family considering dobhoff tube/PEG, GI consulted, appreciate recs.
- Not candidate for PEG now given current respiratory failure
Sepsis present on admission secondary to pneumonia
LLL pneumonia, suspected secondary to aspiration
Acute hypoxic respiratory failure, respiratory acidosis
High anion gap metabolic acidosis, secondary to lactic acidosis
- Chest xray 04/27 showed possible L pneumonia, atelectasis, or pleural effusion
- Febrile on admission 101.5 rectally (04/27 @ 11:30)
- Lactic acid peaked at 8.3, trended down to 1.9
- Blood cultures 04/27: NG at 72h, final results pending
- Required nonrebreather in ED, was on RA --> oxygen requirements have been fluctuating
- ID consulted, appreciate recs. Continue antibiotics per ID.
- Wool Batting Worker consulted, appreciate recs. Downgraded to IMU, pulmonary following.
- 04/30: Repeated chest xray showed left progressed moderate loculated pleural effusion--> chest ultrasound showed not enough fluid to remove by IR
- 05/01: New xray shows slightly worse right basilar consolidation. On phys exam, breathing much more labored. Oxygen requirements continue to fluctuate
- Goals of care discussion ongoing
Electrolyte abnormalities
- Hypernatremia, improving on hypotonic IVF
- Hyperkalemia, resolved
Acute kidney injury
- Cr. 3.2 on admission, unknown baseline --> 0.9 this AM. eCrCl 61.
- Nephrology consulted, appreciate recs.
- Continue IVF per nephrology
Afib with RVR
- Not on anticoagulation prior to admission.
- S/p cardioversion in ED 04/27/24
- S/p diltiazem gtt --> discontinued due to hypotension- family does not want pressors
- Cardiology consulted, appreciate recs. Continue anticoagulation while inpatient.
- Started low dose metoprolol for RVR
Elevated troponin, likely nonischemic myocardial injury secondary to sepsis
- Troponin 0.926 on admission --> downtrended to 0.415
- Downtrended appropriately, no further intervention at this time
Elevated pro BNP, likely secondary to afib with RVR vs chronic diastolic dysfunction
- ProBNP 4330 on admission
H/o mood disorder
Possible seizure disorder
- Home meds held due to NPO: valproate 500mg BID, lorazepam 0.5mg qHS, loxapine 25mg qD and 50mg qHS
- Continue IV valproic acid 250mg q6h and IV lorazepam 0.25mg qHS while NPO
Diabetes mellitus- Insulin sliding scale
H/o BPH- Hold home flomax given NPO
H/o frontotemporal dementia and behavioral issues at baseline
Severe protein calorie malnutrition
Sacral deep tissue injury- continue wound care
Hyperlipidemia- Home atorvastatin held given NPO
wounds all POA:
- Stage 2 scrotum pressure injury
- Stage 2 left jaw and left collar bone pressure injury
- Stage 2 right medial heel pressure injury
- DTI right posterior heel
- Stage 2 right salazar pressure injury
- Stage 1 left lateral ankle pressure injury
Code status: DNR, DNI
VTE ppx: lovenox
Diet: NPO per speech therapy
Dispo planning: TBD
Anticipated Discharge: > 48 hours
Subjective/Interval History
-
Date of Service: May 01, 2024
O2 8L NC. Nonverbal, does not open eyes or answer questions.
Objective Data
-
Labs:
Laboratory Results
05/01/24 05/01/24
03:30 09:15
WBC 5.8
Hgb 12.2 L
Hct 35.5 L
Plt Count 149
HCO3 27.5
Sodium 146 H
Potassium 3.7
Chloride 113 H
Carbon Dioxide 26
BUN 37 H
Creatinine 0.9
Glucose 149 H
Calcium 7.3 L
Vital Signs:
Vital Signs
Temp Pulse Resp BP Pulse Ox
97.9 F 94 34 106/90 94
05/01/24 07:26 05/01/24 09:25 05/01/24 09:25 05/01/24 05:00 05/01/24 09:25
I&O
04/30/24 05/01/24 05/02/24
06:59 06:59 06:59
Intake Total 2776.5 / 2776.5 505 / 505
Output Total 1949 / 1949 650 / 650
Balance 826.5 / 826.5 -145 / -145
Review of Systems
-
Unable to obtain full review of systems at this time due to: Patient Non-verbal
Physical Exam
-
General: No Apparent Distress, Appears Chronically Ill and Cachectic
HEENT: Normocephalic, Atraumatic, Anicteric and Oxygen (NC)
Respiratory: Clear to Auscultation (anterior lung brown) and Accessory Resp Muscle Use (increased work of breathing)
Cardiac: Regular Rhythm, S1/S2 and Murmur
GI: Soft, Nontender, Nondistended and Normal Bowel Sounds
Musculoskeletal: No Edema
Skin: Warm and Dry
Neuro: Negative Awake (unresponsive), Alert or Oriented
Psych: Negative Intact Judgement/Insight
Data Reviewed
-
Diagnostic Radiology: Image personally visualized and interpreted and Report Reviewed by me
CT Scan: Image personally visualized and interpreted and Report Reviewed by me
Medical Tests (Nuc Med, Echo etc): Report Reviewed by me
Labs: Labs Reviewed by me and Discussed with Physician
Old Records: Requested and Reviewed
--- NOTE | 2024-05-01 09:38 | W.PN.CD ---
Today's Communication / Plan
-
Full dose Lovenox
When enteral rout available change to Eliquis 5 bid to complete a 30 days, OK to stop anticoagulation May 28, 2024 (4 weeks from cardioversion) as family does not want termite control servicer anticoagulation
[id number] seems to be 2 for hx HTN + DM and if tolerted termite control servicer anticoagulation can be considered. As AFib may be of reversible etiology it is reasonable to stop anticoagulation at the 1 month jessica
Cardiology will sign off
Impression / Plan
-
59-year-old with history of frontotemporal dementia, Hypertension, hyperlipidemia, diabetes. He was transferred from [facility] with a decline in functional status and being obtunded. He was found to be in rapid atrial fibrillation and
he was emergently cardioverted in the emergency room to sinus tachycardia. He is being treated for sepsis with severe dehydration.
AFib with RVR (200 bpm)=> s/p emergent cardioversion in ER, potentially reversible etiology of severe metabolic derangement/suspected infeciton
- Afib likely from acute medical illness
- [id number] seems to be 2 for hx HTN + DM
- 30 days of Eliquis or some full dose anticoagulation is appropriate (pending goals of care)
Abnormal troponin => nonischemic myocardial injury related to sepsis, peak troponin was first trop 0.9
Suspected sepsis, CXR supports LLL pneumonia, cultures negative
Mixed hyperlipidemia usually on Atorvastatin
Dementia, fronto-temporal
Hypernatremia, improving
DM
Subjective/Interval Hx:
No afib on telemetry. HRs 80s
Physical Exam
Vital Signs/Labs
Vital Signs
Temp Pulse Resp BP Pulse Ox
97.9 F 94 34 106/90 94
05/01/24 07:26 05/01/24 09:25 05/01/24 09:25 05/01/24 05:00 05/01/24 09:25
04/30/24 05/01/24 05/02/24
06:59 06:59 06:59
Actual Weight 49.8 kg 46.7 kg
05/01/24 03:30
05/01/24 03:30
PT 16.2 Sec (11.4-14.6) H 04/28/24 06:02
INR 1.28 04/28/24 06:02
APTT 80.5 Sec (23.4-35.0) H 04/30/24 05:02
Magnesium 2.2 mg/dl (1.6-2.3) 04/27/24 21:13
04/27/24
11:28
Mir-Z-Leqmlxoxico Pept 4330
Physical Exam
Constitutional: Comfortable
Cardiovascular: Rhythm & rate is regular and Pedal edema is absent
Respiratory: Respiratory effort normal
GI: Distention absent
Data Reviewed
-
Date of Service: May 01, 2024
--- NOTE | 2024-05-01 10:44 | PTCARENOTE ---
Pt to transfer to [facility] [place]. Transfer report called to Annemarie JENKINS.
[2024-05-01] MEDS: LOVENOX 50 MG SC (11:02)
--- NOTE | 2024-05-01 11:30 | PTCARENOTE ---
Pt's POx down to 70's w/ good pleth on 15 L midflow. RR mid 30's. Using accessory muscles. Neuro unchanged. Dr Johnson aware and gave orders to place pt on Hiflow. Resp Therapy notified and pt placed on Hiflow 60L/60% w/ Pox improved to 97%.
[2024-05-01 11:57] LABS: Glucose - Point of Care 138 mg/dl (70-99)
--- NOTE | 2024-05-01 12:45 | CM ---
CM following re: discharge planning.
Reviewed pt's chart, met with pt. Per chart review, peg tube placement when respiratory status improved.
PT and OT will evaluate the pt when clinically appropriate.
CM will make a referral to [facility] when pt is improved and more clinical is available. Per physical director Shaye she will consider to admit the pt when pt is medically stable.
D/C plan: [facility] when medically stable. director of technology Shaye [phone].
CM will follow with discharge plan updates as hospitalization progresses
--- NOTE | 2024-05-01 14:09 | W.PN.UPDATE ---
Update Note
Progress Note Update
Called to see the patient as he was desaturating while on high flow nasal cannula 60%, 60L/min. Now FiO2 raised to 100%, with sats 97%, however he remains tachypneic with worsening WOB. Multiple family members at bedside, including Rose Marie.
She understands that he is worsening, and would like to transition to comfort care at this time. They are awaiting another family member to arrive (a brother). They also are requesting a television cabinet finisher. Once everyone present then we will TRX to comfort
care. Primary RN made aware, and so was primary hospitalist, Dr. Schumacher. Emotional support provided to the family.
--- NOTE | 2024-05-01 14:51 | PTCARENOTE ---
Received pt from ICU- IMU monitors placed- ST 90s RR 28-32, BP 124/77 -100% on high flow O2 (55L 60%). Follows no commands, will bite on yankeur and move arms slightly. Eyes closed makes no attempt to communicate. Mumbled sounds on occasion.
Copious secretions some bloody from nares.
Tele alarmed sao2 80%- found in no distress remained tachypneic 20s-30s- RT present placed on 100% 55L on high flow and NRB mask placed- Suctioned orally and deep suctioned nasally with thick secretions returned- sao2 back up to 98%. Family
present, crying and tells me they are talking comfort care would like to speak with MD. Providers made aware- Dr. Fuentes came- awaiting another family member and will decide on comfort care.
--- NOTE | 2024-05-01 16:14 | PTCARENOTE ---
Son is here, family would like comfort measures at this time. Emotional support provided, pastoral care provided- awaiting refrigerator repair technician for last rites. TT to Dr. Sanches- Awaiting orders.
--- NOTE | 2024-05-01 16:44 | CHAP ---
Emotional and spiritual support provided for Mr. Galvez and family gathered at bedside. Prayer shared. Wet [employer] request relayed to [facility]: anticipates arriving shortly.
--- NOTE | 2024-05-01 16:47 | W.PN.UPDATE ---
Update Note
Progress Note Update
At bedside at request of family to transition to comfort care. Rose Marie and multiple family members present, all in agreement of comfort care. Offered support to family, they have no further questions at this time. Orders placed. Discussed with
Dr. Schumacher, systems tester, nursing.
[2024-05-01] MEDS: MORPHINE SULFATE 2 MG IV ×3 (17:05→21:13)
--- NOTE | 2024-05-01 19:12 | PTCARENOTE ---
Last rites given. Morphine given x2 doses, RT weaned HFO2 down to 40L 50%- RR 24 pox 97%.
[2024-05-01] MEDS: ATIVAN 0.25 MG IV (23:04)
[2024-05-02] VITALS (10 sets, daily range): BP systolic 83–145; BP diastolic 59–84
[2024-05-02] MEDS: MORPHINE SULFATE 2 MG IV ×6 (05:13→23:22)
[2024-05-02] MEDS: DEPACON 52.5 MG IV ×4 (05:13→23:55)
--- NOTE | 2024-05-02 07:44 | PTCARENOTE ---
on walkig rounds pt unresponsive on HF O2, Pt looks comfortable no S/S of distress or pain. at bedside . Encouragement offered.
--- NOTE | 2024-05-02 07:46 | PTCARENOTE ---
Pt now on 6L O2, aware of change being made. Pt still comfortable.
--- NOTE | 2024-05-02 08:09 | W.PN.HOSP.TC ---
Today's Communication/Plan
-
comfort care
Assessment / Plan
Assessment / Plan
59yo M with PMH frontotemporal dementia (with aggressive behavioral dysfunction), HTN, DM on insulin, h/o mood disorder, who presented to ED 04/27/24 for altered mental status and tachycardia. At baseline, patient is apparently combative and
yelling, resides at nursing facility for dementia. Prior to arriving at hospital, patient was nonverbal.
Comfort care as of 05/01/24
- Continue comfort care medications only
- Will discuss with CM and clinical rn liaison regarding inpatient vs outpatient options. Family would prefer him to be closer to them in [place] if possible.
Toxic metabolic encephalitis
Obtunded on hospital admission
- Likely multifactorial in nature- sepsis, hypernatremia, seizure may be contributing- see below for individual plans
- Head CT 04/27 negative for acute intracranial stroke, hemorrhage, mass
- NPO, aspiration requirements. GI consulted to discuss dobhoff/PEG with family, however they now decided on comfort care.
Sepsis present on admission secondary to pneumonia
LLL pneumonia, suspected secondary to aspiration
Acute hypoxic respiratory failure, respiratory acidosis
High anion gap metabolic acidosis, secondary to lactic acidosis
- Chest xray 04/27 showed possible L pneumonia, atelectasis, or pleural effusion
- Febrile on admission 101.5 rectally (04/27 @ 11:30)
- Lactic acid peaked at 8.3, trended down to 1.9
- Blood cultures 04/27: NG at 4d, final results pending
- 04/30: Repeated chest xray showed left progressed moderate loculated pleural effusion--> chest ultrasound showed not enough fluid to remove by IR
- 05/01: New xray shows slightly worse right basilar consolidation. On phys exam, breathing much more labored. Oxygen requirements had been fluctuating throughout admission.
- ID, optic fibre drawer, pulmonary was following, recs appreciated. --> Now on comfort care as of 05/01/24.
Electrolyte abnormalities
- Hypernatremia
- Hyperkalemia
Acute kidney injury
- Cr. 3.2 on admission, unknown baseline --> 0.9 most recently. eCrCl 61.
- Nephrology was following, appreciated recs.
- Now on comfort care, discontinue labs.
Afib with RVR
- Not on anticoagulation prior to admission.
- S/p cardioversion in ED 04/27/24
- S/p diltiazem gtt --> discontinued due to hypotension- family does not want pressors
- Cardiology was following, appreciated recs. Started low dose metoprolol for RVR
- Now on comfort care.
Elevated troponin, likely nonischemic myocardial injury secondary to sepsis
- Troponin 0.926 on admission --> downtrended to 0.415
- Downtrended appropriately, no further intervention at this time
Elevated pro BNP, likely secondary to afib with RVR vs chronic diastolic dysfunction
- ProBNP 4330 on admission
H/o mood disorder
Possible seizure disorder
- Home meds held due to NPO: valproate 500mg BID, lorazepam 0.5mg qHS, loxapine 25mg qD and 50mg qHS
- Was on IV valproic acid 250mg q6h and IV lorazepam 0.25mg qHS while NPO
- Now on comfort care
Diabetes mellitus- Was on insulin sliding scale
H/o BPH- Hold home flomax given NPO
H/o frontotemporal dementia and behavioral issues at baseline
Severe protein calorie malnutrition
Sacral deep tissue injury- continue wound care
Hyperlipidemia- Home atorvastatin held
wounds all POA:
- Stage 2 scrotum pressure injury
- Stage 2 left jaw and left collar bone pressure injury
- Stage 2 right medial heel pressure injury
- DTI right posterior heel
- Stage 2 right salazar pressure injury
- Stage 1 left lateral ankle pressure injury
Code status: DNR, DNI, comfort care only
VTE ppx: N/A
Diet: NPO
Dispo planning: TBD
Anticipated Discharge: > 48 hours
Subjective/Interval History
-
Date of Service: May 02, 2024
No acute events overnight- transitioned to comfort care yesterday, appears comfortable.
Objective Data
-
Vital Signs:
Vital Signs
Temp Pulse Resp BP Pulse Ox
98.5 F 74 22 90/65 98
05/02/24 08:03 05/02/24 07:00 05/02/24 07:00 05/02/24 06:00 05/02/24 07:00
I&O
05/01/24 05/02/24 05/03/24
06:59 06:59 06:59
Intake Total 505 / 505
Output Total 650 / 650 500 / 500
Balance -145 / -145 -500 / -500
Review of Systems
-
Unable to obtain full review of systems at this time due to: Patient Non-verbal
Physical Exam
-
General: No Apparent Distress, Comfortable, Appears Chronically Ill and Cachectic
HEENT: Normocephalic, Atraumatic and Oxygen (NC)
Respiratory: Non Labored Respirations
Musculoskeletal: No Edema
Skin: Warm and Dry
Neuro: Negative Awake or Alert
Psych: Negative Intact Judgement/Insight
Data Reviewed
-
Diagnostic Radiology: Image personally visualized and interpreted and Report Reviewed by me
CT Scan: Image personally visualized and interpreted and Report Reviewed by me
Medical Tests (Nuc Med, Echo etc): Report Reviewed by me
Labs: Labs Reviewed by me and Discussed with Physician
Old Records: Requested and Reviewed
--- NOTE | 2024-05-02 08:11 | W.PN.UPDATE ---
Update Note
Progress Note Update
I saw and evaluated the patient independently. I reviewed the resident�s note and agree with findings and plan as documented by Dr. Sanches.
Gen: NAD, NCAT, appears chronically ill
CV: remains RRR, +S1/S2, 2/6 systolic murmur
Resp: remains CTAB anteriorly, no rales, wheezes, or rhonchi.
Abd: remains +BS, soft, NT, ND
Skin: No rashes.
Neuro: unresponsive
The patient was transitioned to comfort care 05/01/24PM. Cont comfort/PRN meds including Ativan/Morphine. c/s hospice.
From 05/01/24:
CT brain: No acute intracranial abnormality.
CXR 04/27/24: Left hemidiaphragm somewhat obscured suggesting opacification such as subsegmental atelectasis and/or pneumonia and possible small left pleural effusion.
Sepsis, POA, due to LLL PNA (POA):
-With acute hypoxemic respiratory failure, SANDY, and mixed acid-base disorder (AG met acidosis, respiratory acidoses, and contraction alkalosis)
-sepsis due to aspiration pneumonitis and LLL PNA
-was on empiric Vanco/Zosyn. Vanco stopped with NEG MRSA screen on 04/29/24.
-BCxs NGTD
-Flu/COVID NEG
-leukocytosis, POA, resolved
-CXR 04/30/24: Moderate loculated left pleural effusion. Progressed. Underlying mass and pneumonia not excluded.
-Chest U/S without enough fluid to tap
-currently on Zosyn as per ID
-was on IVFs with bicarb, lactic acidosis and SANDY now resolved
-GI saw in c/s as family requesting PEG. Timing of PEG TBD at this point but cannot be done with current degree of respiratory failure.
Acute hypoxemic respiratory failure:
-acutely worsening at the time of my exam with visual respiratory distress (use of accessory muscles), tachypnea, worsening hypoxia, just increased to 12L midflow saturating 84%
-check STAT CXR/ABG
-start high flow
-suspect mucus plug
Acute metabolic encephalopathy:
-likely multifactorial (hypernatremia, sepsis, CVA, seizure)
-h/o frontotemporal dementia x 7 years
Electrolyte abnormalities:
-Hypernatremia, resolved with hypotonic IVF
-Hyperkalemia, resolved
New onset afib with RVR:
-elevated trop is acute nonischemic myocardial injury due to afib with RVR
-cardiology following
-was on cardizem gtt, now converted back to NSR
-family does not want AC mcfp, currently on Lovenox
-Echo: EF 55-60%. Normal RV size and function.
-cont BB/Lovenox
Other problems:
DM2: SSI/accuchecks
Severe protein calorie malnutrition
h/o Mood disorder with aggressive behaviors: cont Depakote
BPH: holding flomax
All POA:
- Stage 2 scrotum pressure injury
- Stage 2 left jaw and left collar bone pressure injury
- Stage 2 right medial heel pressure injury
- DTI right posterior heel
- Stage 2 right salazar pressure injury
- Stage 1 left lateral ankle pressure injury
DNR/DNI
Lovenox
--- NOTE | 2024-05-02 08:26 | CHAP ---
[facility] provided Sacrament of the Sick (Last Rites) as requested 05/01/24.
--- NOTE | 2024-05-02 10:07 | CM ---
Addendum entered by Glenis Thorne RN 05/02/24 15:55:
Patient transferred today from IMU to .
Met with patient's in room on IMU. says she was advised that patient is expected to pass away here in hospital. Patient has extensive family (7 siblings, grand-children) who will be here again today. says russian language professor met with patient
and family yesterday.
Per Hospice patient will remain in comfort care today and will be re-evaluated again tomorrow.
Plan comfort care.
Original Note:
Patient from [facility] in comfort care. NPO. Receiving IV Valproate, IV MS prn. Unresponsive per nurse.
Spoke with patient's who was at the bedside; explained hospice philosophy & benefits.
She agrees to speak with the Hospice nurse today.
Spoke with [facility]; she will meet with the today.
Plan follow up after seen by Hospice.
--- NOTE | 2024-05-02 10:18 | W.PN.UPDATE ---
Update Note
Progress Note Update
GI alerted that patient's family has decided to transition patient to comfort care. GI will sign off, please call back if needed.
--- NOTE | 2024-05-02 10:21 | PTCARENOTE ---
Pt breathing labored given 2 mg IV morphine as ordered
--- NOTE | 2024-05-02 11:59 | PTCARENOTE ---
O2 weaned to 2l O2
--- NOTE | 2024-05-02 12:13 | HOSPNOTE ---
Spoke with spouse the plan is patient will remain on comfort since does appear imminent. Attending and CM udpated. I will follow up with family tomorrow.
--- NOTE | 2024-05-02 14:46 | PTCARENOTE ---
Pt moved to 2135 in bed via transport . report to [address] [place] [address].
--- NOTE | 2024-05-02 15:07 | PTCARENOTE ---
Patient arrived to [facility] from IMU with family. Patient is non-verbal, withdrawn, snoring quietly in bed. Pt without air hunger or restlessness. NPO sign taped above head of bed.
[2024-05-02] MEDS: ATIVAN 0.25 MG IV (21:35)
[2024-05-02] MEDS: ZOFRAN 4 MG IV (22:38)
[2024-05-02] MEDS: NSS (PRESERVATIVE FREE) 0.5 ML IV (22:38)
[2024-05-02] MEDS: ATIVAN 1 MG IV (22:39)
[2024-05-02] MEDS: ROBINUL 0.2 MG IV (23:22)
--- NOTE | 2024-05-03 00:02 | W.PN.UPDATE ---
Update Note
Progress Note Update
RN notified [employer], Patient in acute distress with breathing and not controlled with 3 doses of 2mg IV Morphine with in 4 hours and IV Ativan. RN explained regarding Morphine drip to the family and family would like to proceed with the drip to make
their loved one more comfortable. Patient seen and evaluated, . Patient unresponsive, using accessory muscles, RR in 40's, tachycardia, 89-90's on RA. mottling noted. Family at bedside. Discussed the current presentation to the family and will order
Morphine drip to provide with comfort with breathing,
[2024-05-03] MEDS: MORPHINE 100 IV (00:55)
[2024-05-03] MEDS: MORPHINE SULFATE 2 MG IV ×2 (01:03→02:27)
--- NOTE | 2024-05-03 03:59 | W.PN.DEATH ---
Pronouncement of
-
Called to see patient to pronounce.
No spontaneous heart tones or respirations noted.
Patient not responsive to verbal stimuli.
Patient is pronounced .
Time of : 03:20
Date of : 05/03/24
Family Notified: Yes
== END 2024-05-03 03:20 | disposition expired | DRG 871 ==
LOC: 2 NORTH 13:19
PROVIDERS: Specialist; Student in an Organized Health Care Education/Training Program; ADMITTING PHYSICIAN Internal Medicine; ATTENDING PHYSICIAN Internal Medicine; CONSULT PHYSICIAN Internal Medicine; CONSULT PHYSICIAN Internal Medicine Cardiovascular Disease; CONSULT PHYSICIAN Internal Medicine Critical Care Medicine; CONSULT PHYSICIAN Specialist; CONSULT PHYSICIAN Student in an Organized Health Care Education/Training Program; EMERGENCY PHYSICIAN Student in an Organized Health Care Education/Training Program; FAMILY PHYSICIAN Internal Medicine
DX: A41.9 Sepsis, unspecified organism (principal); E43 Unspecified severe protein-calorie malnutrition; J69.0 Pneumonitis due to inhalation of food and vomit; G92.8 Other toxic encephalopathy; J96.02 Acute respiratory failure with hypercapnia; E87.4 Mixed disorder of acid-base balance; N17.9 Acute kidney failure, unspecified; I5A Non-ischemic myocardial injury (non-traumatic); Z68.1 Body mass index [BMI] 19.9 or less, adult; E87.0 Hyperosmolality and hypernatremia; E87.20 Acidosis, unspecified; Z79.82 Long term (current) use of aspirin; R65.20 Severe sepsis without septic shock; Z66 Do not resuscitate; Z11.52 Encounter for screening for COVID-19
CPT/HCPCS: 36600; 70450; 71045; 76604; 80048; 80053; 80164; 80202; 81003; 82805; 82962; 83036; 83605; 83615; 83735; 83880; 84100; 84155; 84484; 85025; 85027; 85610; 85730; 87040; 87502; 87641; 87811; 92526; 92610; 92960; 93005; 93306; 94640; 96361; 96365; 96367; 96376; 99152; 99291